=== PATIENT | female | born 1935 | race Caucasian/White ===

== ENCOUNTER 2016-02-29 22:02 | Inpatient (IN) ==
[2016-03-01 01:52] LABS: Hematocrit 37.4 % (35.3-44.9); Lymphocytes # 0.2 K/mcL (0.6-4.6); Mean Corpuscular HGB Conc 32.1 g/dL (31.6-35.5); Mean Corpuscular Hemoglobin 29.8 pg (28.0-33.3); Mean Corpuscular Volume 92.8 fL (83.0-100.0); Mean Platelet Volume 10.9 fL (9.4-12.4); Platelet Count 331 K/mcL (140-400); Red Blood Count 4.03 M/mcL (3.82-4.97); Red Cell Distribution Width 14.1 % (11.5-14.5)
[2016-03-01 01:53] LABS: VBG HCO3 26.5 mEq/L (21-27); VBG PH 7.35 pH Units (7.32-7.42)
[2016-03-01 02:04] LABS: Calcium 10.2 mg/dL (8.6-10.8); Potassium 3.4 mEq/L (3.5-4.5)
[2016-03-01 02:17] LABS: Monocytes # 0.4 K/mcL (0.0-1.3); Neutrophils # 9.6 K/mcL (1.6-8.9); Platelet Clumps Few (Not Present); Platelet Estimate Normal (Normal); Toxic Granulation Present (Not Present)
[2016-03-01] MEDS ORDERED: 0.9 % Sodium Chloride 500 ML IVC ONE (04:21)
[2016-03-01] MEDS ORDERED: *HR* LORazepam 2 MG/ML VIAL IVP ONE ×2 (04:23→09:29)
[2016-03-01] MEDS ORDERED: *HR* Morphine 2 MG/ML SYRINGE IVP PRN (06:24)
[2016-03-01] MEDS ORDERED: *HR* OxyCODONE Immed Rel 5 MG TABLET PO PRN (06:24)
[2016-03-01] MEDS ORDERED: Naloxone 0.4 MG/ML INJ IVP PRN (06:24)
[2016-03-01] MEDS ORDERED: 0.9 % Sodium Chloride 1,000 ML IVC SCH (06:30)
--- NOTE | 2016-03-01 06:34 | Internal Med History&Physical ---
Date of Encounter: 03/01/16 Time of Encounter: 04:00 Assessment and Plan (1) Acute kidney injury Current visit: Yes Status: Acute Patient received Lasix at [place] due to on chest x-ray findings and concern for CHF, she had a Brooks catheter placed and she put out about 50 mL. Her creatinine worsened after the Lasix, her clinical picture is most likely AKA secondary to dehydration and not fluid overloaded and therefore I will not continue the Lasix I will give her 500 mL normal saline bolus and follow kidney function, monitor her response by urine output and repeat creatinine. Avoid all nephrotoxins including IV contrast and NSAIDs. (2) Acute and chronic respiratory failure with hypoxia Current visit: Yes Status: Acute The patient is respiratory failure requires BiPAP, will continue this. Check CT of the chest and distinguish between infectious process and cardiogenic pulmonary edema. Check echocardiogram. Start IV antibiotics empirically for pneumonia. Check influenza swab. Start IV steroids for COPD. Possible pulmonary The patient is currently highly unstable condition and there is high probability of emergent and significant clinical decompensation with potential impairment of organ dysfunction including cardiovascular system and respiratory system. I have performed a 60 minutes of critical care time which involved decision making of high complexity to assess, manipulate, and support vital organ system, in order to prevent further life threatening deterioration of the patient's condition. The time involved in the performance of any procedures was not counted toward critical care time. Critical care time was spent evaluating the patient, reviewing EKG, imaging studies and laboratory data, ordering medications and further imaging studies and reevaluating clinically for response including urine output and making adjustments to ordered medications. (3) Respiratory distress Current visit: Yes Status: Acute Continue with BiPAP. Low-dose Ativan tool decreased work of breathing. (4) Tobacco abuse Current visit: Yes Status: Acute We will provide smoking cessation counseling. (5) Type 2 diabetes mellitus treated with insulin Current visit: Yes Status: Acute Insulin sliding scale. (6) Acute exacerbation of chronic obstructive airways disease Current visit: No Status: Acute Inhaled bronchodilators and IV steroids. (7) Community acquired pneumonia Current visit: No Status: Acute IV antibiotic broad-spectrum. Follow-up blood cultures sputum culture. Check Legionella and pneumococcal antigen. Internal Medicine - H&P: HPI Chief complaint: Shortness of breath Admitted From: Intrahospital Transfer Plans for Post Hospital Care: Home History of present illness: Ms. Ludwig is a 80 year old female with past medical history significant for COPD who wall was transferred from an outside hospital where she presented with severe shortness of breath. History is limited by respiratory distress, patient is currently on BiPAP and able to speak in short sentences saying yes and no answers. She has been having severe shortness of breath for the last 3 days has been progressive and associated with chest discomfort and cough. She presented to [place] where she was hypoxic and tachypneic with respiratory rate of 42. She was placed on BiPAP, treated with steroids and antibiotics and transferred to our hospital for further care. A 10 point review of systems was obtained, limited by respiratory distress, negative except as above. Family history was reviewed and found to be noncontributory to current presentation. Past Med Surg Social Fam HX - Past Medical History Medical history: COPD, hypertension Psychiatric history: no psych history - Past Surgical History Surgical History: hysterectomy, knee replacement - Social History Smoking Status: Current every day smoker Packs per day: 0.5 Smokeless Tobacco Status: No Alcohol use: none Drug use: none - Family History Mother Adopted: No Family Member Ethnicity: Non- Living Status: Age at : 50 Cause of : Cancer Stomach Hx Family Cancer: Yes (Stomach) Father Adopted: No Family Member Ethnicity: Non- Hx Family Cardiac Disorders: Yes Internal Medicine - H&P: Meds Albuterol Sulfate [Proair Hfa] 1 puff IH QID PRN 09/03/15 [History] Alendronate Sodium [Fosamax] 70 mg PO QWEEK 09/03/15 [History] Amlodipine [Norvasc] 5 mg PO DAILY 09/03/15 [History] Amoxicillin/Clavulanate [Augmentin] 500 mg PO BIDWM 09/03/15 [History] Atorvastatin Calcium [Lipitor] 20 mg PO DAILY 09/03/15 [History] Azithromycin [Zithromax] 500 mg PO Q24H 09/03/15 [History] Clopidogrel Bisulfate [Plavix] 75 mg PO DAILY 09/03/15 [History] Furosemide [Lasix] 20 mg PO DAILY 09/03/15 [History] Insulin Glargine,Hum.rec.anlog [Lantus Solostar] 20 unit SQ HS 09/03/15 [History ] Levalbuterol HCl [Xopenex Neb] 1.25 mg IH Q2H PRN 09/03/15 [History] Levothyroxine [Synthroid] 25 mcg PO 0630 09/03/15 [History] Losartan Potassium [Cozaar] 100 mg PO DAILY 09/03/15 [History] Metoprolol Succinate 100 mg PO BID 09/03/15 [History] Metoprolol [Lopressor] 25 mg PO BID 09/03/15 [History] Potassium Chloride [Klor-Con] 20 meq PO DAILY 09/03/15 [History] PredniSONE [Deltasone] 20 mg PO BID 09/03/15 [History] Allergies iodine Allergy (Verified 02/29/16 19:53) See Comments Pt unable to state effects All Systems PM: A 10-system review of systems was performed and is negative for pertinent findings except as documented above in the HPI. - Constitutional Vitals: Temp Pulse Resp BP Pulse Ox 98.6 F 125 31 118/74 96 03/01/16 04:12 03/01/16 04:12 03/01/16 05:32 03/01/16 04:12 03/01/16 05:32 General appearance: Present: A&O X 3, severe distress - Eye Eye exam: Present: PERRL, conjuntiva pink, sclera anicteric Pupils: Present: PERRL - Neck Neck exam general surgery: Present: supple, trachea midline. Absent: lymphadenopathy - Respiratory Respiratory exam: Present: accessory muscle use, CTAB, rales, respiratory distress, wheezes, tachypnea. Absent: rhonchi - Cardiovascular Cardiovascular exam: Present: +S1, +S2, tachycardia. Absent: diastolic murmur, gallop, rubs - GI/Abdominal GI/Abdominal exam: Present: normal bowel sounds, soft, no peritoneal signs. Absent: distended, tenderness - Extremities Exam Extremities exam: Present: warm, radial pulses palpable and symetrical. Absent : calf tenderness, cyanotic, pedal edema - Neurological Exam Neurological exam: Present: CN II-XII intact, oriented X3, no focal deficits. Absent: pronater drift, facial droop, speech deficit - Skin Skin exam: Present: dry, intact Internal Med - H&P Results - Labs CBC & Chem 7: 03/01/16 01:42 03/01/16 01:42 Labs: Short CBC 03/01/16 Range/Units 01:42 WBC 10.2 (4.3-11.1) K/mcL Hgb 12.0 (11.5-15.4) g/dL Hct 37.4 (35.3-44.9) % Plt Count 331 (140-400) K/mcL Neutrophils # 9.6 H (1.6-8.9) K/mcL BMP 03/01/16 01:42 Sodium 142 Potassium 3.4 L Chloride 103 Carbon Dioxide 24 BUN 59 H Creatinine 2.35 H Glucose 217 H Calcium 10.2 Cardiac Enzymes 03/01/16 Range/Units 01:42 Troponin I 0.08 H* (0-0.03) ng/mL - ABG Interpretation ABG results: 03/01/16 01:42 VBG pH 7.35 VBG pCO2 48 VBG pO2 97 H VBG HCO3 26.5 - EKG Data -: EKG Interpreted by Myself Rate: tachycardia - EKG Data EKG comments: 03/01/16 06:35 Sinus tachycardia 1 28 bpm, atrial premature contractions and nonspecific ST and T wave changes. - Impressions ITS Impressions Chest CT 03/01/16 04:20 IMPRESSION: 1. Diffuse nodularity is most likely infectious or inflammatory. 2. Emphysema. 3. Pulmonary hypertension. D/ / Ezio Sanabria MD / Ezio Sanabria MD Interpreting Provider: Ezio Sanabria MD Chest x-ray from [place] revealed by myself shows bilateral infiltrates could be pulmonary edema or bilateral pneumonia.
[2016-03-01] MEDS ORDERED: *HR* Dextrose 50 % in Water (Syg) 50 ML SYRINGE IVP PRN (06:45)
[2016-03-01] MEDS ORDERED: Dextrose Gel 15 GM PO PRN ×2 (06:45)
[2016-03-01] MEDS ORDERED: D5% in Water 1,000 ML IV PRN (06:45)
[2016-03-01] MEDS ORDERED: Vancomycin 1,250 MG in D5% in Water 250 ML IVPB ONE (07:00)
[2016-03-01] MEDS: Ipratropium/Albuterol Neb 3 ML IH SCH ×5 (07:35→23:40)
[2016-03-01] MEDS ORDERED: methylPREDNISolone 125 MG/2 ML VIAL IVP ONE (07:46)
[2016-03-01] MEDS: Pantoprazole 40 MG VIAL IVP SCH (07:50)
--- NOTE | 2016-03-01 09:21 | Pulmonology Consult Note ---
Date of Encounter: 03/01/16 Time of Encounter: 09:18 Assessment and Plan (1) Acute and chronic respiratory failure with hypoxia Current Visit: Yes Status: Acute secondary to infectious pneumonia coupled with COPD exacerbation. Low positive pressure airway support for decreased work of breathing Wean oxygen to keep saturations greater than 88% to approximately 92% (2) Severe sepsis Current Visit: Yes Status: Acute Elevated lactate and evidence of infection likely secondary to pneumonia blood pressure currently stable she remains tachycardic overall would would recommend positive fluid balance this can be done with gentle boluses of 500 mL each with monitoring of response Agree with broad cultures including flu swab respiratory infectious panel sputum culture and blood cultures along with urine culture Agree with broad-spectrum antibiotics for now de-escalate upon sensitivities Trend lactate to normalization (3) Acute exacerbation of chronic obstructive airways disease Current Visit: No Status: Acute Cont IV methylprednisolone Continue bronchodilators every 2-4 hours today DuoNeb's are appropriate Smoking cessation (4) Community acquired pneumonia Current Visit: No Status: Acute Review of her CT scan shows very severe emphysematous changes and acutely she has bronchiolitis which is most likely infectious it is hard for me to place it this is all acute or this could have a component of chronic bronchiolitis which in somebody with emphysema nontuberculous Mycobacterium could be in the differential would treat upfront for common infectious causes waiting on cultures it is worthwhile to send off two sputum cultures for AFB. There is no urgency to this can be done when she is off bilevel support and could be done with an induced sputum with respiratory therapy. No improvement then would likely need bronchoscopy. Per our records she has only been in the hospital last in August which puts her in the community-acquired infection risk Has been started on cefepime and vancomycin I would add atypical coverage ( levaquin) to this and likely de-escalate over the next 48 hours based upon sensitivities (5) Tobacco abuse Current Visit: Yes Status: Acute Encourage patient to stop smoking to help prevent recurrent exacerbations History of Present Illness Consult date: 03/01/16 Requesting physician: Lit Montoya Reason for consult: COPD Chief complaint: SOB History of present illness: This is a 80-year-old woman with a past medical history of COPD with active tobacco abuse. She has chronic nocturnal hypoxemia for which she wears oxygen. She uses metered-dose inhalers daily. Overall history taking was impaired slightly by agent currently being on BiPAP and not being able to have in-depth conversations. She presented with a three-day history of cough and worsening shortness of breath presented originally to [place] where they thought she had possible heart failure given her diuresis but she had worsening kidney function with minimal urine output. She has been placed on noninvasive positive pressure ventilation to ease work of breathing started on antibiotics and has been given bronchodilators.. Since his interventions patient says that her breathing has improved to some degree she remains on bilevel positive pressure ventilation and approximately 50% FiO2. Past Med Surg Social Fam HX - Past Medical History Medical history: COPD, hypertension Psychiatric history: no psych history - Past Surgical History Surgical History: hysterectomy, knee replacement - Social History Smoking Status: Current every day smoker Packs per day: 0.5 Smokeless Tobacco Status: No Alcohol use: none Drug use: none - Family History Mother Adopted: No Family Member Ethnicity: Non- Living Status: Age at : 50 Cause of : Cancer Stomach Hx Family Cancer: Yes (Stomach) Father Adopted: No Family Member Ethnicity: Non- Hx Family Cardiac Disorders: Yes Medications and Allergies Albuterol Sulfate [Proair Hfa] 1 puff IH QID PRN 09/03/15 [History] Alendronate Sodium [Fosamax] 70 mg PO QWEEK 09/03/15 [History] Amlodipine [Norvasc] 5 mg PO DAILY 09/03/15 [History] Amoxicillin/Clavulanate [Augmentin] 500 mg PO BIDWM 09/03/15 [History] Atorvastatin Calcium [Lipitor] 20 mg PO DAILY 09/03/15 [History] Azithromycin [Zithromax] 500 mg PO Q24H 09/03/15 [History] Clopidogrel Bisulfate [Plavix] 75 mg PO DAILY 09/03/15 [History] Furosemide [Lasix] 20 mg PO DAILY 09/03/15 [History] Insulin Glargine,Hum.rec.anlog [Lantus Solostar] 20 unit SQ HS 09/03/15 [History ] Levalbuterol HCl [Xopenex Neb] 1.25 mg IH Q2H PRN 09/03/15 [History] Levothyroxine [Synthroid] 25 mcg PO 0630 09/03/15 [History] Losartan Potassium [Cozaar] 100 mg PO DAILY 09/03/15 [History] Metoprolol Succinate 100 mg PO BID 09/03/15 [History] Metoprolol [Lopressor] 25 mg PO BID 09/03/15 [History] Potassium Chloride [Klor-Con] 20 meq PO DAILY 09/03/15 [History] PredniSONE [Deltasone] 20 mg PO BID 09/03/15 [History] Allergies iodine Allergy (Verified 02/29/16 19:53) See Comments Pt unable to state effects All Systems: A 10-system review of systems was performed and is negative for pertinent findings except as documented above in the HPI. Physical Examination Vital Signs: Vital Signs, Last 4 Hours Temp Pulse Resp BP Pulse Ox 03/01/16 08:16 98 F 110 34 133/74 100 03/01/16 08:03 100 03/01/16 07:38 32 96 03/01/16 05:32 31 96 General appearance: alert, appears uncomfortable Eyes: nonicteric ENT: oropharynx dry Neck: supple, no lymphadenopathy Effort: mildly labored Auscultation: bilateral: diminished breath sounds, wheezes, rhonchi Cardiovascular: regular rate and rhythm Gastrointestinal: normoactive bowel sounds Extremities: no edema Musculoskeletal: no deformities normal mental status, non-focal exam affect normal Results - Laboratory Findings CBC and BMP: 03/01/16 01:42 03/01/16 01:42 Abnormal lab findings: Abnormal lab results Band Neutrophils % 12.0 % (0-4) H 03/01/16 01:42 Neutrophils # 9.6 K/mcL (1.6-8.9) H 03/01/16 01:42 Lymphocytes # 0.2 K/mcL (0.6-4.6) L 03/01/16 01:42 Toxic Granulation Present (Not Present) A 03/01/16 01:42 Clumped Platelets Few (Not Present) A 03/01/16 01:42 VBG pO2 97 mmHg (25-40) H 03/01/16 01:42 Potassium 3.4 mEq/L (3.5-4.5) L 03/01/16 01:42 BUN 59 mg/dL (7-20) H 03/01/16 01:42 Creatinine 2.35 mg/dL (0.57-1.11) H 03/01/16 01:42 Est GFR ( Amer) 24 (> 60) L 03/01/16 01:42 Est GFR (Non-Af Amer) 20 (> 60) L 03/01/16 01:42 Glucose 217 mg/dL (70-99) H 03/01/16 01:42 Calculated Osmolality 317 (280-300) H 03/01/16 01:42 Lactic Acid 3.0 mmol/L (0.5-2.2) H 03/01/16 01:42 Troponin I 0.07 ng/mL (0-0.03) H* 03/01/16 07:58 B-Natriuretic Peptide 543 pg/mL (0-100) H 03/01/16 01:42 - Diagnostic Findings Chest x-ray: report reviewed, image reviewed CT scan - chest: report reviewed, image reviewed - Clinical Findings Intake & Output: Intake & Output 02/29/16 03/01/16 03/01/16 23:59 07:59 15:59 Intake Total 500 / 500 Balance 500 / 500 Weight 83.1 kg Consult Discharge Plan - Plan Referrals: NO,PCP [Primary Care Provider] -
[2016-03-01] MEDS: Cefepime HCl 2,000 MG in D5% in Water (Mini-Bag+) 100 ML IVPB SCH (10:19)
[2016-03-01] MEDS ORDERED: Levofloxacin 500 MG/100 ML 500 MG/100 ML BAG IVPB SCH (12:00)
[2016-03-01] MEDS: methylPREDNISolone 125 MG/2 ML VIAL IVP SCH ×2 (12:15→17:55)
[2016-03-01] MEDS: *HR* LORazepam 2 MG/ML VIAL IVP PRN (12:16)
[2016-03-01 14:00] LABS: Adenovirus Not Detected (Not Detect); Bordetella Pertussis Not Detected (Not Detect); Chlamydophila pneumoniae Not Detected (Not Detect); Coronavirus 229E Not Detected (Not Detect); Coronavirus HKU1 Not Detected (Not Detect); Coronavirus NL63 Not Detected (Not Detect); Coronavirus OC43 ***DETECTED*** (Not Detect); Human Metapneumovirus Not Detected (Not Detect); Human Rhinovirus/Enterovirus Not Detected (Not Detect); Influenza A Subtype 2009 H1 Not Detected (Not Detect); Influenza A Untypeable Not Detected (Not Detect); Influenza B Not Detected (Not Detect); Mycoplasma pneumoniae Not Detected (Not Detect); Parainfluenza Virus 1 Not Detected (Not Detect); Parainfluenza Virus 2 Not Detected (Not Detect); Parainfluenza Virus 3 Not Detected (Not Detect); Parainfluenza Virus 4 Not Detected (Not Detect); Respiratory Syncytial Virus Not Detected (Not Detect)
[2016-03-01] MEDS: 0.9 % Sodium Chloride 1,000 ML IVC SCH ×2 (14:39→22:31)
--- NOTE | 2016-03-01 15:31 | Event Note ---
Date of Encounter: 03/01/16 Time of Encounter: 14:58 This is a 80-year-old woman with PMH of COPD with active tobacco abuse with chronic nocturnal hypoxemia for which she wears oxygen. she is admitted for acute exacerbation of COPD and possible infection likely pneumonia given CT findings. there is no evidence of CHF or pulmonary edema on the CT chest, will continue IVF at 125 for now and continue the BIPAP given her increased work of breathing , will try weaning off as tolerated, appreciate pulmonary recommendations and will continue steroids, IV antibiotics and breathing treatments. VBG done this morning does not show CO2 retention. will restart her home meds. she has INA possible 2/2 dehydration and concurrent use of IV lasix. will monitor chem daily. mild trop elevation, adynamic, most likely 2/2 demand ischemia from hypoxia and acute respiratory failure.
--- NOTE | 2016-03-01 15:56 | Electrocardiograph Report ---
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
[2016-03-01] MEDS: Insulin LISPRO 300 UNITS/3 ML VIAL SQ SCH ×2 (17:51→18:02)
[2016-03-01] MEDS: Nicotine 14 MG PATCH.TD24 TD SCH (17:54)
[2016-03-01] MEDS: *HR* Heparin 5,000 UNIT/ML VIAL SQ SCH (17:55)
[2016-03-02] MEDS: Insulin LISPRO 300 UNITS/3 ML VIAL SQ SCH ×4 (01:10→22:32)
[2016-03-02] MEDS: methylPREDNISolone 125 MG/2 ML VIAL IVP SCH ×2 (01:12→06:45)
[2016-03-02] MEDS: *HR* LORazepam 2 MG/ML VIAL IVP PRN ×2 (02:20→07:42)
[2016-03-02] MEDS: Ipratropium/Albuterol Neb 3 ML IH SCH ×10 (03:43→23:06)
[2016-03-02 06:08] LABS: Hematocrit 33.9 % (35.3-44.9); Lymphocytes # 0.5 K/mcL (0.6-4.6); Mean Corpuscular HGB Conc 30.7 g/dL (31.6-35.5); Mean Corpuscular Hemoglobin 29.1 pg (28.0-33.3); Mean Platelet Volume 10.8 fL (9.4-12.4); Platelet Count 318 K/mcL (140-400); Red Blood Count 3.57 M/mcL (3.82-4.97); Red Cell Distribution Width 14.4 % (11.5-14.5)
[2016-03-02 06:19] LABS: Hemoglobin 10.4 g/dL (11.5-15.4)
[2016-03-02 06:22] LABS: Magnesium 1.9 mg/dL (1.6-2.6)
[2016-03-02 06:33] LABS: Vancomycin,Random 13.3 mcg/mL
[2016-03-02] MEDS: *HR* Heparin 5,000 UNIT/ML VIAL SQ SCH ×2 (06:44→22:30)
[2016-03-02 06:59] LABS: Monocytes # 0.3 K/mcL (0.0-1.3); Neutrophils # 12.2 K/mcL (1.6-8.9); Platelet Estimate Normal (Normal); Toxic Granulation Present (Not Present)
[2016-03-02 07:01] LABS: Hypochromasia Present (Not Present)
[2016-03-02] MEDS: Nicotine 14 MG PATCH.TD24 TD SCH (07:56)
[2016-03-02] MEDS: Pantoprazole 40 MG VIAL IVP SCH (07:56)
[2016-03-02] MEDS: Cefepime HCl 2,000 MG in D5% in Water (Mini-Bag+) 100 ML IVPB SCH (07:56)
[2016-03-02] MEDS ORDERED: Aminoglycoside Consult 1 EACH MC ONE (08:54)
[2016-03-02] MEDS: Budesonide/Formoterol 160/4.5 MDI IH SCH ×2 (11:25→23:06)
[2016-03-02] MEDS: Levofloxacin 250 MG/50 ML 250 MG/50 ML BAG IVPB SCH (12:01)
[2016-03-02] MEDS: 0.9 % Sodium Chloride 1,000 ML IVC SCH (12:02)
[2016-03-02 12:07] LABS: ABG Base Excess -2.5 mEq/L (-2.0 to 3.0); ABG HCO3 24.2 mEQ/L (21-27); ABG Oxygen Saturation 99 % (95-98); ABG PCO2 48 mmHg (35-45); ABG PH 7.31 pH Units (7.32-7.45); ABG PO2 136 mmHg (85-104); ABG TCO2 25.7 mEq/L (20-26); Blood Gas FiO2 40 %
--- NOTE | 2016-03-02 13:23 | Pulmonology Progress Note ---
Date of Encounter: 03/02/16 Time of Encounter: 13:21 Assessment and Plan (1) Acute and chronic respiratory failure with hypoxia Current Visit: Yes Status: Acute Mild respiratory acidosis (COPD, acute PNA, body habitus, poor mechanics s/t to laying on side in bed) Cont NIPPV Encourage upright posture and OOBTC if tolerated Wean Fio2 to keep sats >88 to 92% Increase IPAP to 16 and decrease EPAP to 4 Ok to give trial off BPAP today as tolerated (2) Severe sepsis Current Visit: Yes Status: Acute s/t to PNA Improving (3) Acute exacerbation of chronic obstructive airways disease Current Visit: No Status: Acute on relatively high dose steroids and with AMS and improving lung function would taper to 40mg IV methylpred BID Can likely transition to PO in upcoming day(s) Cont Bronchodilators Q4 is plenty cont abx (4) Community acquired pneumonia Current Visit: No Status: Acute Appears s/t to Coronavirus Would cont levaquin x 5 days pending cultures then D/C (5) Tobacco abuse Current Visit: Yes Status: Acute counselled on smoking cessation Subjective Principal diagnosis: Pneumonia Interval history: Today the patient is more confused continues to use BiPAP Objective PUL Vital signs: Last Vital Signs Temp 98.1 F 03/02/16 12:24 Pulse 96 03/02/16 12:24 Resp 30 03/02/16 12:24 BP 140/78 03/02/16 12:24 Pulse Ox 98 03/02/16 12:24 General appearance: lethargic Effort: mildly labored Auscultation: bilateral: diminished breath sounds, wheezes (faint exp wheeze b/ l (improved from previous exam)) Cardiovascular: regular rate and rhythm Gastrointestinal: non-tender Extremities: no edema non-focal exam, other (disoriented (thinks it februrary) she is able to answer simple questions and follow simple commands ) Results - Laboratory Findings CBC and BMP: 03/02/16 05:42 03/02/16 05:42 ABG ABG pH 7.31 pH Units (7.32-7.45) L 03/02/16 11:57 ABG pCO2 48 mmHg (35-45) H 03/02/16 11:57 ABG pO2 136 mmHg (85-104) H 03/02/16 11:57 ABG O2 Saturation 99 % (95-98) H 03/02/16 11:57 Abnormal lab findings: Abnormal lab results WBC 13.3 K/mcL (4.3-11.1) H 03/02/16 05:42 RBC 3.57 M/mcL (3.82-4.97) L 03/02/16 05:42 Hgb 10.4 g/dL (11.5-15.4) L D 03/02/16 05:42 Hct 33.9 % (35.3-44.9) L 03/02/16 05:42 MCHC 30.7 g/dL (31.6-35.5) L 03/02/16 05:42 Myelocytes % 2.0 % (0) H 03/02/16 05:42 Neutrophils # 12.2 K/mcL (1.6-8.9) H 03/02/16 05:42 Lymphocytes # 0.5 K/mcL (0.6-4.6) L 03/02/16 05:42 Toxic Granulation Present (Not Present) A 03/02/16 05:42 Clumped Platelets Few (Not Present) A 03/01/16 01:42 Hypochromasia Present (Not Present) A 03/02/16 05:42 ABG pH 7.31 pH Units (7.32-7.45) L 03/02/16 11:57 ABG pCO2 48 mmHg (35-45) H 03/02/16 11:57 ABG pO2 136 mmHg (85-104) H 03/02/16 11:57 ABG O2 Saturation 99 % (95-98) H 03/02/16 11:57 ABG Base Excess -2.5 mEq/L (-2.0 to 3.0) L 03/02/16 11:57 VBG pO2 97 mmHg (25-40) H 03/01/16 01:42 Sodium 146 mEq/L (136-145) H 03/02/16 05:42 Chloride 111 mEq/L (98-109) H 03/02/16 05:42 BUN 61 mg/dL (7-20) H 03/02/16 05:42 Creatinine 1.71 mg/dL (0.57-1.11) H 03/02/16 05:42 Est GFR ( Amer) 35 (> 60) L 03/02/16 05:42 Est GFR (Non-Af Amer) 29 (> 60) L 03/02/16 05:42 BUN/Creatinine Ratio 36 (6-26) H 03/02/16 05:42 Glucose 126 mg/dL (70-99) H 03/02/16 05:42 POC Glucose 113 (58-89) H 03/02/16 05:26 Calculated Osmolality 321 (280-300) H 03/02/16 05:42 Lactic Acid 3.0 mmol/L (0.5-2.2) H 03/01/16 01:42 Troponin I 0.08 ng/mL (0-0.03) H* 03/01/16 12:19 B-Natriuretic Peptide 543 pg/mL (0-100) H 03/01/16 01:42 Coronavirus OC43 (PCR) DETECTED (Not Detect) A 03/01/16 12:15 - Microbiology Findings Microbiology Findings: Microbiology, Last 48 Hours 03/01/16 12:15 Legionella Antigen - Final Urine,Catheterized Streptococcus pneumoniae Antigen (M - Final - Clinical Findings Intake & Output: Intake & Output 03/01/16 03/02/16 03/02/16 23:59 07:59 15:59 Intake Total 1000 / 1000 0 / 0 Output Total 350 / 350 150 / 150 0 / 0 Balance 650 / 650 -150 / -150 0 / 0 Weight 89.6 kg Consult Discharge Plan - Plan Referrals: NO,PCP [Primary Care Provider] -
[2016-03-02] MEDS: Acetaminophen 325 MG TABLET PO PRN (14:11)
[2016-03-02] MEDS ORDERED: Vancomycin 1,250 MG in D5% in Water 250 ML IVPB ONE (14:30)
--- NOTE | 2016-03-02 16:20 | Internal Med Progress Note ---
Date of Encounter: 03/02/16 Time of Encounter: 16:18 - Assessment and plan (1) Acute and chronic respiratory failure with hypoxia Current Visit: Yes Status: Acute Assessment and plan: 2/2 COPD, acute PNA, ABG showed mild acidosis. Cont NIPPV and try to wean off as tolerated. titrtae Fio2 to keep sats >88 BIPAP settings adjusted by pulmonary. (2) Severe sepsis Current Visit: Yes Status: Acute Assessment and plan: resolved. 2/2 viral pneumonia (3) Acute exacerbation of chronic obstructive airways disease Current Visit: No Status: Acute Assessment and plan: steroids tapered to 40mg IV methylpred BID as per pulmonary Cont Bronchodilators Q4 cont levoflox. (4) Community acquired pneumonia Current Visit: No Status: Acute Assessment and plan: 2/2 mckeon virus. will stop vanco and zosyn and continue levoflox for 5 days. mild increase in leucocytosis, maru continue to monitor.. no fever. - Time Spent With Patient 25 - 35 minutes - Subjective Interval history: appears still tachypneic ,has been on BIPAP for the whole night. denies any chest pain, speaking in short sentences. denies n/v, alert and awake. - Constitutional Vitals: Temp Pulse Resp BP Pulse Ox 98.1 F 96 26 140/78 94 L 03/02/16 12:24 03/02/16 12:24 03/02/16 15:58 03/02/16 12:24 03/02/16 15:58 General appearance: Present: A&O X 3, severe distress Exam: General appearance: lethargic Auscultation: bilateral: diminished breath sounds, wheezing b/l occasional Cardiovascular: s1 and s2,regular rate and rhythm Gastrointestinal: non-tender, soft, bs are present Extremities: no edema Internal Medicine: Result - Labs CBC & Chem 7: 03/02/16 05:42 03/02/16 05:42 Labs: Short CBC 03/02/16 Range/Units 05:42 WBC 13.3 H (4.3-11.1) K/mcL Hgb 10.4 L D (11.5-15.4) g/dL Hct 33.9 L (35.3-44.9) % Plt Count 318 (140-400) K/mcL Neutrophils # 12.2 H (1.6-8.9) K/mcL BMP 03/02/16 05:42 Sodium 146 H Potassium 4.0 Chloride 111 H Carbon Dioxide 25 BUN 61 H Creatinine 1.71 H Glucose 126 H Calcium 10.0 - ABG Interpretation ABG results: ABG ABG pH 7.31 pH Units (7.32-7.45) L 03/02/16 11:57 ABG pCO2 48 mmHg (35-45) H 03/02/16 11:57 ABG pO2 136 mmHg (85-104) H 03/02/16 11:57 ABG O2 Saturation 99 % (95-98) H 03/02/16 11:57 Consult Discharge Plan - Plan Referrals: NO,PCP [Primary Care Provider] -
[2016-03-02] MEDS: MethylPREDNISolone 40 MG/ML VIAL IVP SCH (18:36)
[2016-03-02] MEDS: Metoprolol 100 MG TABLET PO SCH (22:30)
[2016-03-03] MEDS: MethylPREDNISolone 40 MG/ML VIAL IVP SCH ×3 (00:18→16:59)
[2016-03-03] MEDS: 0.9 % Sodium Chloride 1,000 ML IVC SCH ×2 (04:37→16:59)
[2016-03-03] MEDS: Ipratropium/Albuterol Neb 3 ML IH SCH ×10 (04:41→20:55)
[2016-03-03] MEDS: Levothyroxine 25 MCG TABLET PO SCH ×2 (05:37→06:59)
[2016-03-03] MEDS: *HR* Heparin 5,000 UNIT/ML VIAL SQ SCH ×2 (06:11→16:59)
[2016-03-03] MEDS: Insulin LISPRO 300 UNITS/3 ML VIAL SQ SCH ×5 (07:13→20:59)
[2016-03-03] MEDS: Budesonide/Formoterol 160/4.5 MDI IH SCH ×2 (08:07→21:15)
--- NOTE | 2016-03-03 09:03 | Pulmonology Progress Note ---
Date of Encounter: 03/03/16 Time of Encounter: 09:02 Assessment and Plan (1) Acute and chronic respiratory failure with hypoxia Current Visit: Yes Status: Acute Mild respiratory acidosis (COPD, acute PNA, body habitus, poor mechanics s/t to laying on side in bed) Encourage upright posture and OOBTC if tolerated Wean Fio2 to keep sats >88 to 92% Increase IPAP to 16 and decrease EPAP to 4 Ok to give trial off BPAP today as tolerated Would hold IV fluids as now taking by mouth (2) Severe sepsis Current Visit: Yes Status: Acute s/t to PNA Improving (3) Acute exacerbation of chronic obstructive airways disease Current Visit: No Status: Acute Continue IV steroids Incision to by mouth prednisone 40 mg tomorrow with 2 week taper Cont Bronchodilators Q4 Start Symbicort 160/4.5 2 puffs twice daily Start tiotropium 18 mcg daily cont abx (4) Community acquired pneumonia Current Visit: No Status: Acute Appears s/t to Coronavirus Would cont levaquin x 5 days pending cultures then D/C (5) Tobacco abuse Current Visit: Yes Status: Acute counselled on smoking cessation Subjective Principal diagnosis: Pneumonia Interval history: Today fully alert awake sitting up in bed eating breakfast off BiPAP to his breathing still little bit labored but feels much better Objective PUL Vital signs: Last Vital Signs Temp 98.0 F 03/03/16 06:52 Pulse 86 03/03/16 06:52 Resp 28 03/03/16 06:52 BP 152/91 03/03/16 06:52 Pulse Ox 100 03/03/16 06:52 General appearance: no acute distress Eyes: nonicteric ENT: oropharynx moist Effort: mildly labored Auscultation: bilateral: diminished breath sounds, wheezes, rhonchi Cardiovascular: regular rate and rhythm Extremities: edema normal mental status, non-focal exam Results - Laboratory Findings CBC and BMP: 03/02/16 05:42 03/02/16 05:42 ABG ABG pH 7.31 pH Units (7.32-7.45) L 03/02/16 11:57 ABG pCO2 48 mmHg (35-45) H 03/02/16 11:57 ABG pO2 136 mmHg (85-104) H 03/02/16 11:57 ABG O2 Saturation 99 % (95-98) H 03/02/16 11:57 Abnormal lab findings: Abnormal lab results WBC 13.3 K/mcL (4.3-11.1) H 03/02/16 05:42 RBC 3.57 M/mcL (3.82-4.97) L 03/02/16 05:42 Hgb 10.4 g/dL (11.5-15.4) L D 03/02/16 05:42 Hct 33.9 % (35.3-44.9) L 03/02/16 05:42 MCHC 30.7 g/dL (31.6-35.5) L 03/02/16 05:42 Myelocytes % 2.0 % (0) H 03/02/16 05:42 Neutrophils # 12.2 K/mcL (1.6-8.9) H 03/02/16 05:42 Lymphocytes # 0.5 K/mcL (0.6-4.6) L 03/02/16 05:42 Toxic Granulation Present (Not Present) A 03/02/16 05:42 Clumped Platelets Few (Not Present) A 03/01/16 01:42 Hypochromasia Present (Not Present) A 03/02/16 05:42 ABG pH 7.31 pH Units (7.32-7.45) L 03/02/16 11:57 ABG pCO2 48 mmHg (35-45) H 03/02/16 11:57 ABG pO2 136 mmHg (85-104) H 03/02/16 11:57 ABG O2 Saturation 99 % (95-98) H 03/02/16 11:57 ABG Base Excess -2.5 mEq/L (-2.0 to 3.0) L 03/02/16 11:57 VBG pO2 97 mmHg (25-40) H 03/01/16 01:42 Sodium 146 mEq/L (136-145) H 03/02/16 05:42 Chloride 111 mEq/L (98-109) H 03/02/16 05:42 BUN 61 mg/dL (7-20) H 03/02/16 05:42 Creatinine 1.71 mg/dL (0.57-1.11) H 03/02/16 05:42 Est GFR ( Amer) 35 (> 60) L 03/02/16 05:42 Est GFR (Non-Af Amer) 29 (> 60) L 03/02/16 05:42 BUN/Creatinine Ratio 36 (6-26) H 03/02/16 05:42 Glucose 126 mg/dL (70-99) H 03/02/16 05:42 POC Glucose 164 (58-89) H 03/03/16 08:11 Calculated Osmolality 321 (280-300) H 03/02/16 05:42 Lactic Acid 3.0 mmol/L (0.5-2.2) H 03/01/16 01:42 Troponin I 0.08 ng/mL (0-0.03) H* 03/01/16 12:19 B-Natriuretic Peptide 543 pg/mL (0-100) H 03/01/16 01:42 Procalcitonin 13.88 ng/mL (<=0.10) H 03/01/16 01:42 Coronavirus OC43 (PCR) DETECTED (Not Detect) A 03/01/16 12:15 - Microbiology Findings Microbiology Findings: Microbiology, Last 48 Hours 03/01/16 12:15 Legionella Antigen - Final Urine,Catheterized Streptococcus pneumoniae Antigen (M - Final - Clinical Findings Intake & Output: Intake & Output 03/02/16 03/03/16 03/03/16 23:59 07:59 15:59 Intake Total 1260 / 1260 Output Total 600 / 600 250 / 250 Balance -600 / -600 1010 / 1010 Weight 86.1 kg Consult Discharge Plan - Plan Referrals: Lex Biswas, PALLIATIVE NURSE [Non-Partnered Physician] -
[2016-03-03] MEDS: Nicotine 14 MG PATCH.TD24 TD SCH (09:28)
[2016-03-03] MEDS: Metoprolol 100 MG TABLET PO SCH ×2 (09:28→19:02)
[2016-03-03] MEDS: Pantoprazole 40 MG VIAL IVP SCH (09:28)
[2016-03-03 12:18] LABS: Hematocrit 33.6 % (35.3-44.9); Hemoglobin 10.4 g/dL (11.5-15.4); Mean Corpuscular Hemoglobin 29.5 pg (28.0-33.3); Mean Corpuscular Volume 95.2 fL (83.0-100.0); Mean Platelet Volume 10.5 fL (9.4-12.4); Nucleated Red Blood Cells 0.1 /100 WBC (0); Platelet Count 317 K/mcL (140-400); Red Blood Count 3.53 M/mcL (3.82-4.97); Red Cell Distribution Width 14.8 % (11.5-14.5)
[2016-03-03 12:32] LABS: Calcium 10.6 mg/dL (8.6-10.8); Potassium 4.7 mEq/L (3.5-4.5)
[2016-03-03 12:45] LABS: Eosinophils # 0.3 K/mcL (0.0-0.6); Large Platelets Present (Not Present); Lymphocytes # 0.9 K/mcL (0.6-4.6); Monocytes # 0.6 K/mcL (0.0-1.3); Neutrophils # 12.7 K/mcL (1.6-8.9); Platelet Estimate Normal (Normal)
--- NOTE | 2016-03-03 16:58 | Internal Med Progress Note ---
Date of Encounter: 03/03/16 Time of Encounter: 16:55 - Assessment and plan (1) Acute and chronic respiratory failure with hypoxia Current Visit: Yes Status: Acute Assessment and plan: 2/2 COPD, acute PNA, ABG showed mild acidosis. on NC cannula today, will keep BIPAP prn for severe respiratory distress. titrtae Fio2 to keep sats >88 BIPAP settings adjusted by pulmonary, appreciate pulmonary recommendtaions (2) Severe sepsis Current Visit: Yes Status: Acute Assessment and plan: resolved. 2/2 viral pneumonia (3) Acute exacerbation of chronic obstructive airways disease Current Visit: No Status: Acute Assessment and plan: steroids tapered to 40mg IV methylpred BID . Cont Bronchodilators Q4 cont levoflox. (4) Community acquired pneumonia Current Visit: No Status: Acute Assessment and plan: 2/2 mckeon virus. will stop vanco and zosyn and continue levoflox for 5 days. mild increase in leucocytosis,possible 2/2 steroids, maru continue to monitor.. no fever. - Time Spent With Patient 25 - 35 minutes - Subjective Interval history: appears better than yesterday, however still has wheezing on exam. ,has been on BIPAP for the whole night. denies any chest pain, speaking in short sentences. denies n/v, alert and awake. - Constitutional Vitals: Temp Pulse Resp BP Pulse Ox 98.4 F 86 18 167/103 94 L 03/03/16 16:02 03/03/16 16:02 03/03/16 16:02 03/03/16 16:02 03/03/16 16:02 General appearance: Present: mild distress, A&O X 3 Exam: neck- supple chest- b/l wheezing , no crepts cvs- s1 and s2, no mr//g abd-soft, non tender, bs are present ext- no edema Internal Medicine: Result - Labs CBC & Chem 7: 03/03/16 11:58 03/03/16 11:58 Labs: Short CBC 03/03/16 Range/Units 11:58 WBC 14.4 H (4.3-11.1) K/mcL Hgb 10.4 L (11.5-15.4) g/dL Hct 33.6 L (35.3-44.9) % Plt Count 317 (140-400) K/mcL Neutrophils # 12.7 H (1.6-8.9) K/mcL BMP 03/03/16 11:58 Sodium 143 Potassium 4.7 H Chloride 114 H Carbon Dioxide 21 BUN 49 H D Creatinine 1.46 H Glucose 161 H Calcium 10.6 - ABG Interpretation ABG results: ABG ABG pH 7.31 pH Units (7.32-7.45) L 03/02/16 11:57 ABG pCO2 48 mmHg (35-45) H 03/02/16 11:57 ABG pO2 136 mmHg (85-104) H 03/02/16 11:57 ABG O2 Saturation 99 % (95-98) H 03/02/16 11:57 Consult Discharge Plan - Plan Referrals: Lex Biswas, ROOM SERVICE SERVER [Non-Partnered Physician] -
[2016-03-03] MEDS: *HR* LORazepam 2 MG/ML VIAL IVP PRN (20:58)
[2016-03-04] MEDS: Ipratropium/Albuterol Neb 3 ML IH SCH ×11 (00:12→19:58)
[2016-03-04] MEDS: MethylPREDNISolone 40 MG/ML VIAL IVP SCH ×3 (00:32→16:18)
[2016-03-04] MEDS: *HR* Heparin 5,000 UNIT/ML VIAL SQ SCH (06:20)
[2016-03-04] MEDS: Levothyroxine 25 MCG TABLET PO SCH (06:21)
[2016-03-04] MEDS: 0.9 % Sodium Chloride 1,000 ML IVC SCH (06:23)
--- NOTE | 2016-03-04 07:34 | Pulmonology Progress Note ---
Date of Encounter: 03/04/16 Time of Encounter: 07:34 Assessment and Plan (1) Acute and chronic respiratory failure with hypoxia Current Visit: Yes Status: Acute Overall i feel that infection and exacerbation of obstructive airways disease has improved. worsening today most likely s/t pulmonary edema s/t to ongoing IV fluid administration Recommend CXR which was done showing increased vascular congestion otherwise stable. ABG on Bi level is reassuring -Recommend IV lasix x 1 (40mg) monitor for response Encourage upright posture and OOBTC if tolerated Wean Fio2 to keep sats >88 to 92% Increase IPAP to 16 and decrease EPAP to 4 Ok to give trial off BPAP later today as tolerated Would hold IV fluids (2) Severe sepsis Current Visit: Yes Status: Acute s/t to PNA Improving persistent WBC elevation likely steroid effect if worsening s/s including fever would reculture treat for PNA x 8 days (3) Acute exacerbation of chronic obstructive airways disease Current Visit: No Status: Acute Continue steroids Cont Bronchodilators Q4 Start Symbicort 160/4.5 2 puffs twice daily Cont tiotropium 18 mcg daily cont abx (4) Community acquired pneumonia Current Visit: No Status: Acute Appears s/t to Coronavirus Would cont levaquin x 8 days pending cultures then D/C (5) Tobacco abuse Current Visit: Yes Status: Acute counselled on smoking cessation Subjective Principal diagnosis: Pneumonia Interval history: 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 O2 sat% stable. BP stable Objective PUL Vital signs: Last Vital Signs Temp 98.5 F 03/04/16 03:27 Pulse 76 03/04/16 03:27 Resp 27 03/04/16 03:38 BP 119/77 03/04/16 03:27 Pulse Ox 99 03/04/16 03:38 General appearance: appears uncomfortable Effort: very labored Auscultation: bilateral: diminished breath sounds, wheezes (faint wheeze ), rales Cardiovascular: regular rate and rhythm Gastrointestinal: non-tender Extremities: other (Trace LE edema ) normal mental status, non-focal exam anxious Results - Laboratory Findings CBC and BMP: 03/03/16 11:58 03/03/16 11:58 ABG ABG pH 7.31 pH Units (7.32-7.45) L 03/02/16 11:57 ABG pCO2 48 mmHg (35-45) H 03/02/16 11:57 ABG pO2 136 mmHg (85-104) H 03/02/16 11:57 ABG O2 Saturation 99 % (95-98) H 03/02/16 11:57 Abnormal lab findings: Abnormal lab results WBC 14.4 K/mcL (4.3-11.1) H 03/03/16 11:58 RBC 3.53 M/mcL (3.82-4.97) L 03/03/16 11:58 Hgb 10.4 g/dL (11.5-15.4) L 03/03/16 11:58 Hct 33.6 % (35.3-44.9) L 03/03/16 11:58 MCHC 31.0 g/dL (31.6-35.5) L 03/03/16 11:58 RDW 14.8 % (11.5-14.5) H 03/03/16 11:58 Band Neutrophils % 6.0 % (0-4) H 03/03/16 11:58 Myelocytes % 2.0 % (0) H 03/02/16 05:42 Neutrophils # 12.7 K/mcL (1.6-8.9) H 03/03/16 11:58 Nucleated RBCs/100 WBC 0.1 /100 WBC (0) H 03/03/16 11:58 Toxic Granulation Present (Not Present) A 03/02/16 05:42 Clumped Platelets Few (Not Present) A 03/01/16 01:42 Large Platelets Present (Not Present) A 03/03/16 11:58 Hypochromasia Present (Not Present) A 03/02/16 05:42 ABG pH 7.31 pH Units (7.32-7.45) L 03/02/16 11:57 ABG pCO2 48 mmHg (35-45) H 03/02/16 11:57 ABG pO2 136 mmHg (85-104) H 03/02/16 11:57 ABG O2 Saturation 99 % (95-98) H 03/02/16 11:57 ABG Base Excess -2.5 mEq/L (-2.0 to 3.0) L 03/02/16 11:57 VBG pO2 97 mmHg (25-40) H 03/01/16 01:42 Potassium 4.7 mEq/L (3.5-4.5) H 03/03/16 11:58 Chloride 114 mEq/L (98-109) H 03/03/16 11:58 BUN 49 mg/dL (7-20) H D 03/03/16 11:58 Creatinine 1.46 mg/dL (0.57-1.11) H 03/03/16 11:58 Est GFR ( Amer) 42 (> 60) L 03/03/16 11:58 Est GFR (Non-Af Amer) 35 (> 60) L 03/03/16 11:58 BUN/Creatinine Ratio 34 (6-26) H 03/03/16 11:58 Glucose 161 mg/dL (70-99) H 03/03/16 11:58 POC Glucose 172 (58-89) H 03/03/16 20:57 Calculated Osmolality 312 (280-300) H 03/03/16 11:58 Lactic Acid 3.0 mmol/L (0.5-2.2) H 03/01/16 01:42 Troponin I 0.08 ng/mL (0-0.03) H* 03/01/16 12:19 B-Natriuretic Peptide 543 pg/mL (0-100) H 03/01/16 01:42 Procalcitonin 13.88 ng/mL (<=0.10) H 03/01/16 01:42 Coronavirus OC43 (PCR) DETECTED (Not Detect) A 03/01/16 12:15 - Diagnostic Findings Chest x-ray: report reviewed, image reviewed (increased vascular congestion ) - Clinical Findings Intake & Output: Intake & Output 03/03/16 03/03/16 03/04/16 15:59 23:59 07:59 Intake Total 240 / 240 1210 / 1210 1120 / 1120 Output Total 0 / 0 400 / 400 Balance 240 / 240 810 / 810 1120 / 1120 Weight 88.7 kg Consult Discharge Plan - Plan Referrals: Lex Biswas, RECEIVING TELLER [Non-Partnered Physician] -
[2016-03-04] MEDS ORDERED: Furosemide 20 MG/2 ML VIAL IVP ONE (08:42)
[2016-03-04] MEDS: Pantoprazole 40 MG VIAL IVP SCH (09:22)
[2016-03-04] MEDS: Insulin LISPRO 300 UNITS/3 ML VIAL SQ SCH ×4 (09:22→20:35)
[2016-03-04] MEDS: Nicotine 14 MG PATCH.TD24 TD SCH (09:23)
[2016-03-04] MEDS: Metoprolol 100 MG TABLET PO SCH ×2 (09:23→20:35)
[2016-03-04 09:30] LABS: ABG Base Excess -1.7 mEq/L (-2.0 to 3.0); ABG HCO3 23.7 mEQ/L (21-27); ABG Oxygen Saturation 99 % (95-98); ABG PCO2 42 mmHg (35-45); ABG PH 7.36 pH Units (7.32-7.45); ABG PO2 148 mmHg (85-104)
[2016-03-04 09:31] LABS: Blood Gas FiO2 40 %
[2016-03-04] MEDS: Budesonide/Formoterol 160/4.5 MDI IH SCH ×2 (11:18→20:09)
[2016-03-04] MEDS: Tiotropium 18 MCG inhalation IH SCH (11:32)
[2016-03-04 11:43] LABS: Basophils # 0.1 K/mcL (0.0-0.2); Basophils % 0.4 %; Hematocrit 35.2 % (35.3-44.9); Immature Granulocytes % 4.4 % (0-4); Lymphocytes # 0.9 K/mcL (0.6-4.6); Lymphocytes % 4.7 %; Mean Corpuscular HGB Conc 31.3 g/dL (31.6-35.5); Mean Corpuscular Hemoglobin 29.6 pg (28.0-33.3); Mean Corpuscular Volume 94.9 fL (83.0-100.0); Mean Platelet Volume 10.8 fL (9.4-12.4); Monocytes # 0.4 K/mcL (0.0-1.3); Monocytes % 2.2 %; Nucleated Red Blood Cells 0.1 /100 WBC (0); Platelet Count 302 K/mcL (140-400); Red Blood Count 3.71 M/mcL (3.82-4.97); Red Cell Distribution Width 14.5 % (11.5-14.5); Segmented Neutrophils % 88.3 %
[2016-03-04 11:45] LABS: Neutrophils # 17.1 K/mcL (1.6-8.9)
[2016-03-04 11:57] LABS: Calcium 10.8 mg/dL (8.6-10.8); Potassium 4.6 mEq/L (3.5-4.5)
[2016-03-04 12:04] LABS: Platelet Estimate Normal (Normal); Reactive Lymphocytes Present (Not Present)
[2016-03-04] MEDS: Levofloxacin 250 MG/50 ML 250 MG/50 ML BAG IVPB SCH (12:41)
[2016-03-04] MEDS ORDERED: Aspirin 325 MG TABLET PO ONE (16:20)
[2016-03-04] MEDS ORDERED: *HR* Heparin 5,000 UNIT/ML VIAL IVP ONE (16:21)
[2016-03-04] MEDS ORDERED: *HR* Heparin 5,000 UNIT/ML VIAL IVP PRN ×2 (16:21)
[2016-03-04 17:07] LABS: Hematocrit 34.6 % (35.3-44.9); Hemoglobin 10.9 g/dL (11.5-15.4); Mean Corpuscular HGB Conc 31.5 g/dL (31.6-35.5); Mean Corpuscular Hemoglobin 29.8 pg (28.0-33.3); Mean Corpuscular Volume 94.5 fL (83.0-100.0); Mean Platelet Volume 10.7 fL (9.4-12.4); Platelet Count 284 K/mcL (140-400); Red Blood Count 3.66 M/mcL (3.82-4.97); Red Cell Distribution Width 14.3 % (11.5-14.5)
[2016-03-04 17:14] LABS: INR 1.4; Prothrombin Time 14.8 Seconds (9.4-12.1)
[2016-03-04 17:17] LABS: Activated Partial Thrombo Time 26.4 Seconds (26.0-36.0)
[2016-03-04] MEDS: Heparin 25,000 UNIT/500 ML D5W 25,000 UNIT/500 ML MLS IVC SCH (17:47)
--- NOTE | 2016-03-04 17:47 | Internal Med Progress Note ---
Date of Encounter: 03/04/16 Time of Encounter: 17:45 - Assessment and plan (1) Acute and chronic respiratory failure with hypoxia Current Visit: Yes Status: Acute Assessment and plan: 2/2 COPD, acute PNA 2/2 mckeon virus, ABG on BIpap looks good. repeat CXR today showed vascular congeteion, stopped IVF and started home dose of IV lasix. titrtae Fio2 to keep sats >88 , intermittent BIPAP and wean as tolerated. BIPAP settings adjusted by pulmonary, appreciate pulmonary recommendtaions (2) Severe sepsis Current Visit: Yes Status: Acute Assessment and plan: resolved. 2/2 viral pneumonia (3) Acute exacerbation of chronic obstructive airways disease Current Visit: No Status: Acute Assessment and plan: steroids tapered to 40mg IV methylpred BID . Cont Bronchodilators Q4 cont levoflox. (4) Community acquired pneumonia Current Visit: No Status: Acute Assessment and plan: 2/2 mckeon virus. will stop vanco and zosyn and continue levoflox for 5 days. mild increase in leucocytosis,possible 2/2 steroids, maru continue to monitor.. no fever. (5) NSTEMI (non-ST elevated myocardial infarction) Current Visit: Yes Status: Acute Assessment and plan: was noted to have st- wave changes in septal and lateral leads. repeat trop shows 0.8 from 0.08. however, rafat denies any chest pain and BP stable. she says she has h/o heart attack few years ago and had a LHC done but not sure if she had any stents placed in. will give asa 325 mg now, start on heparin drip and will order ECHO. will consult cardio and follow recommendtaions - Time Spent With Patient 25 - 35 minutes - Subjective Interval history: still appears sob with accessory muscle use in the morning, denies any chest pain or palpitation ,has been on BIPAP for the whole night. speaking in short sentences. denies n/v, alert and awake. - Constitutional Vitals: Temp Pulse Resp BP Pulse Ox 97.0 F L 66 27 141/83 99 03/04/16 17:09 03/04/16 17:09 03/04/16 17:09 03/04/16 17:09 03/04/16 17:09 General appearance: Present: mild distress, A&O X 3 Exam: neck- supple chest- b/l wheezing, no creptns cvs-s1 and s2, no mr//g abd-soft, non tender, bs are present ext- no edema Internal Medicine: Result - Labs CBC & Chem 7: 03/04/16 16:54 03/04/16 11:18 Labs: Short CBC 03/04/16 03/04/16 Range/Units 11:18 16:54 WBC 19.4 H 19.3 H (4.3-11.1) K/mcL Hgb 11.0 L 10.9 L (11.5-15.4) g/dL Hct 35.2 L 34.6 L (35.3-44.9) % Plt Count 302 284 (140-400) K/mcL Neutrophils # 17.1 H (1.6-8.9) K/mcL BMP 03/04/16 11:18 Sodium 142 Potassium 4.6 H Chloride 111 H Carbon Dioxide 23 BUN 40 H Creatinine 1.12 H Glucose 171 H Calcium 10.8 Cardiac Enzymes 03/04/16 Range/Units 16:54 Troponin I 0.81 H* (0-0.03) ng/mL - ABG Interpretation ABG results: ABG ABG pH 7.36 pH Units (7.32-7.45) 03/04/16 09:20 ABG pCO2 42 mmHg (35-45) 03/04/16 09:20 ABG pO2 148 mmHg (85-104) H 03/04/16 09:20 ABG O2 Saturation 99 % (95-98) H 03/04/16 09:20 PT/INR, D-dimer PT 14.8 Seconds (9.4-12.1) H 03/04/16 16:54 - Impressions Impressions Chest X-Ray 03/04/16 08:43 IMPRESSION: Persistent bilateral airspace disease and vascular congestion. This could all represent mild congestive failure. The possibility superimposed pneumonia on the right is also considered. D/ / Austin Kimble MD / Austin Kimble MD Interpreting Provider: Austin Kimble MD Consult Discharge Plan - Plan Referrals: Lex Biswas, JEEPER OPERATOR [Non-Partnered Physician] -
--- NOTE | 2016-03-04 17:51 | Cardiology Consult Note ---
Date of Encounter: 03/04/16 Time of Encounter: 17:48 Assessment and Plan (1) Acute kidney injury Current Visit: Yes Status: Acute Per primary team, seems to be improving. (2) NSTEMI (non-ST elevated myocardial infarction) Current Visit: Yes Status: Acute Appears to have had recent NC. Denies and current symptoms. Recommend ASA, Heparin and BBlockers. Will need invasive evaluation prior to D/C. (3) Respiratory distress Current Visit: Yes Status: Acute Per primary team/ pulmonary. Viral pneumonia, COPD. Respiratory status stable. Discussion w patient/family: The assessment and plan as outlined above was discussed with the patient and/or family members who expressed understanding and agreement. All questions were answered. Thank you for involving us in the care of your patient. Please call with any questions. History of Present Illness Consult date: 03/04/16 Requesting physician: Vielka Castro Consult reason: NSTEMI History of present illness: Ms. Ludwig is a 80 year old female with a remote history of coronary disease who presented several days ago with respiratory distress thought to be secondary to viral pneumonia and COPD exacerbation. She also developed acute renal insufficiency. She's been treated aggressively with steroids and antibiotics. She has shown very gradual improvement. Today an EKG reveals changes from a previous EKG. Clinically there is been no change in she denies chest pain. Past Med Surg Social Fam HX - Past Medical History Medical history: COPD, hypertension Psychiatric history: no psych history - Past Surgical History Surgical History: hysterectomy, knee replacement - Social History Smoking Status: Current every day smoker Packs per day: 0.5 Smokeless Tobacco Status: No Alcohol use: none Drug use: none - Family History Mother Adopted: No Family Member Ethnicity: Non- Living Status: Age at : 51 Cause of : Cancer Stomach Hx Family Cancer: Yes (Stomach) Father Adopted: No Family Member Ethnicity: Non- Hx Family Cardiac Disorders: Yes Medications and Allergies Albuterol Sulfate [Proair Hfa] 2 puff IH Q4H PRN 09/03/15 [History] Alendronate Sodium [Fosamax] 70 mg PO QWEEK 09/03/15 [History] Atorvastatin Calcium [Lipitor] 20 mg PO DAILY 09/03/15 [History] Furosemide [Lasix] 20 mg PO DAILY 09/03/15 [History] Insulin Glargine,Hum.rec.anlog [Lantus Solostar] 20 unit SQ HS 09/03/15 [History ] Levothyroxine [Synthroid] 25 mcg PO DAILY 09/03/15 [History] Losartan Potassium [Cozaar] 100 mg PO DAILY 09/03/15 [History] Metoprolol [Lopressor] 100 mg PO BID 09/03/15 [History] Potassium Chloride [Klor-Con] 10 meq PO DAILY 09/03/15 [History] PredniSONE [Deltasone] 5 mg PO DAILY 09/03/15 [History] Cholecalciferol (Vitamin D3) [Vitamin D] 50,000 unit PO Q2W 03/01/16 [History] Allergies iodine Allergy (Verified 03/01/16 13:19) See Comments UNABLE TO CONFIRM REACTION- All Systems Review: A 10-system review of systems was performed and is negative for pertinent findings except as documented above in the HPI. Physical Examination Vital Signs, Last 4 Hours Temp Pulse Resp BP Pulse Ox 03/04/16 17:09 97.0 F L 66 27 141/83 99 03/04/16 16:41 24 99 03/04/16 16:40 97 F L 66 27 141/83 99 General: Conversant, No Apparent Distress HEENT: Atraumatic, Normocephaly, Mucus Membranes Moist Neck: No JVD, Normal carotid pulses Cardiac: Reg Rate and Rhythm, Normal S1 and S2, No Murmur Lungs: Other (Scattered rhonchi, wheezing, decreased at bases) Neuro: Alert and responsive, No focal deficits noted Abdomen: Soft, Non-Tender Skin: No rashes noted on visualized skin Musculoskeletal: No Chest Wall Tenderness Results 03/04/16 16:54 03/04/16 11:18 Lab Results 03/04/16 03/04/16 03/04/16 11:18 11:18 16:54 WBC 19.4 H Hgb 11.0 L Hct 35.2 L Plt Count 302 INR APTT Sodium 142 Potassium 4.6 H Chloride 111 H Carbon Dioxide 23 BUN 40 H Creatinine 1.12 H Glucose 171 H Calcium 10.8 Troponin I 0.81 H* 03/04/16 03/04/16 16:54 16:54 WBC 19.3 H Hgb 10.9 L Hct 34.6 L Plt Count 284 INR 1.4 APTT 26.4 Sodium Potassium Chloride Carbon Dioxide BUN Creatinine Glucose Calcium Troponin I - EKG Interpretation EKG results cardiology: other (Sinus rhythm, relatively late R-wave progression with T-wave inversion in anterior leads. This appears new from previous.) Consult Discharge Plan - Plan Referrals: Lex Biswas, DUSTIN [Non-Partnered Physician] -
[2016-03-04] MEDS: *HR* LORazepam 2 MG/ML VIAL IVP PRN (20:36)
[2016-03-04] MEDS ORDERED: Furosemide 40 MG/4 ML VIAL IVP ONE (21:21)
[2016-03-05] MEDS: Ipratropium/Albuterol Neb 3 ML IH SCH ×7 (00:01→23:04)
[2016-03-05 01:12] LABS: Activated Partial Thrombo Time 156.9 Seconds (26.0-36.0)
[2016-03-05 01:24] LABS: Heparin anti-factor XA UFH 1.19 IU/mL (0.30-0.70)
[2016-03-05] MEDS: MethylPREDNISolone 40 MG/ML VIAL IVP SCH ×3 (02:45→20:24)
[2016-03-05] MEDS: Levothyroxine 25 MCG TABLET PO SCH (05:38)
[2016-03-05] MEDS: Metoprolol 100 MG TABLET PO SCH ×2 (08:10→20:24)
[2016-03-05] MEDS: Furosemide 20 MG/2 ML VIAL IVP SCH (08:10)
[2016-03-05] MEDS: Pantoprazole 40 MG VIAL IVP SCH (08:10)
[2016-03-05] MEDS: Nicotine 14 MG PATCH.TD24 TD SCH (08:10)
[2016-03-05] MEDS: Insulin LISPRO 300 UNITS/3 ML VIAL SQ SCH ×4 (08:11→20:35)
[2016-03-05] MEDS: Budesonide/Formoterol 160/4.5 MDI IH SCH ×2 (08:20→19:20)
[2016-03-05] MEDS: Tiotropium 18 MCG inhalation IH SCH (08:24)
--- NOTE | 2016-03-05 08:56 | Pulmonology Progress Note ---
Date of Encounter: 03/05/16 Time of Encounter: 08:56 Assessment and Plan (1) Acute and chronic respiratory failure with hypoxia Current Visit: Yes Status: Acute COPD exacerbation improving Renal function panel pending today but if BUN/Cre stable would recommend continue diuresis (goal 1-1.5) as tolerated Encourage upright posture and OOBTC if tolerated Wean Fio2 to keep sats >88 to 92% Ok to give trial off BPAP later today as tolerated Would cont to hold IV fluids (2) Severe sepsis Current Visit: Yes Status: Acute s/t to PNA Improving persistent WBC elevation likely steroid effect if worsening s/s including fever would reculture treat for PNA x 8 days (3) Acute exacerbation of chronic obstructive airways disease Current Visit: No Status: Acute Appears s/t Coronavirus (some evidence that this is circulating in the community right now) Continue steroids Cont Bronchodilators Q4 Cont Symbicort 160/4.5 2 puffs twice daily Cont tiotropium 18 mcg daily Stop Cefepime (4) Community acquired pneumonia Current Visit: No Status: Acute Appears s/t to Coronavirus Would cont levaquin x 8 days pending cultures then D/C stop Cefepime (5) NSTEMI (non-ST elevated myocardial infarction) Current Visit: Yes Status: Acute on ACS protocol Managed by Cardiology ECHO pending (6) Tobacco abuse Current Visit: Yes Status: Acute counselled on smoking cessation Subjective Principal diagnosis: Pneumonia Interval history: ECG showed ST changes and Troponin ordered notable for increase from 0.08 to 0.8. Patient denies chest pain. Seen by Cardiology started on ACS protocol for NSTEMI. This morning still denies chest pain Reports some improvement in breathing after diuresis (nearly 2L) Wore BPAP all night Objective PUL Vital signs: Last Vital Signs Temp 98.5 F 03/05/16 06:54 Pulse 82 03/05/16 07:19 Resp 26 03/05/16 07:19 BP 175/90 03/05/16 06:54 Pulse Ox 97 03/05/16 07:19 General appearance: asleep Effort: mildly labored Auscultation: bilateral: wheezes (very faint expiratory wheeze nearly undetectable. ), rales, rhonchi Cardiovascular: regular rate and rhythm Gastrointestinal: normoactive bowel sounds Extremities: edema non-focal exam Results - Laboratory Findings CBC and BMP: 03/04/16 16:54 03/04/16 11:18 ABG ABG pH 7.36 pH Units (7.32-7.45) 03/04/16 09:20 ABG pCO2 42 mmHg (35-45) 03/04/16 09:20 ABG pO2 148 mmHg (85-104) H 03/04/16 09:20 ABG O2 Saturation 99 % (95-98) H 03/04/16 09:20 PT/INR, D-dimer PT 14.8 Seconds (9.4-12.1) H 03/04/16 16:54 Abnormal lab findings: Abnormal lab results WBC 19.3 K/mcL (4.3-11.1) H 03/04/16 16:54 RBC 3.66 M/mcL (3.82-4.97) L 03/04/16 16:54 Hgb 10.9 g/dL (11.5-15.4) L 03/04/16 16:54 Hct 34.6 % (35.3-44.9) L 03/04/16 16:54 MCHC 31.5 g/dL (31.6-35.5) L 03/04/16 16:54 Immature Gran % 4.4 % (0-4) H 03/04/16 11:18 Band Neutrophils % 6.0 % (0-4) H 03/03/16 11:58 Myelocytes % 2.0 % (0) H 03/02/16 05:42 Neutrophils # 17.1 K/mcL (1.6-8.9) H 03/04/16 11:18 Nucleated RBCs/100 WBC 0.1 /100 WBC (0) H 03/04/16 11:18 Reactive Lymphocytes Present (Not Present) A 03/04/16 11:18 Toxic Granulation Present (Not Present) A 03/02/16 05:42 Clumped Platelets Few (Not Present) A 03/01/16 01:42 Large Platelets Present (Not Present) A 03/03/16 11:58 Hypochromasia Present (Not Present) A 03/02/16 05:42 PT 14.8 Seconds (9.4-12.1) H 03/04/16 16:54 APTT 156.9 Seconds (26.0-36.0) H* D 03/05/16 00:24 Heparin Anti-Xa, Unfract 1.19 IU/mL (0.30-0.70) H* 03/05/16 00:24 ABG pO2 148 mmHg (85-104) H 03/04/16 09:20 ABG O2 Saturation 99 % (95-98) H 03/04/16 09:20 VBG pO2 97 mmHg (25-40) H 03/01/16 01:42 Potassium 4.6 mEq/L (3.5-4.5) H 03/04/16 11:18 Chloride 111 mEq/L (98-109) H 03/04/16 11:18 BUN 40 mg/dL (7-20) H 03/04/16 11:18 Creatinine 1.12 mg/dL (0.57-1.11) H 03/04/16 11:18 Est GFR ( Amer) 57 (> 60) L 03/04/16 11:18 Est GFR (Non-Af Amer) 47 (> 60) L 03/04/16 11:18 BUN/Creatinine Ratio 36 (6-26) H 03/04/16 11:18 Glucose 171 mg/dL (70-99) H 03/04/16 11:18 POC Glucose 97 (58-89) H 03/04/16 16:04 Calculated Osmolality 308 (280-300) H 03/04/16 11:18 Lactic Acid 3.0 mmol/L (0.5-2.2) H 03/01/16 01:42 Troponin I 0.81 ng/mL (0-0.03) H* 03/04/16 16:54 B-Natriuretic Peptide 543 pg/mL (0-100) H 03/01/16 01:42 Procalcitonin 13.88 ng/mL (<=0.10) H 03/01/16 01:42 Coronavirus OC43 (PCR) DETECTED (Not Detect) A 03/01/16 12:15 - Clinical Findings Intake & Output: Intake & Output 03/04/16 03/05/16 03/05/16 23:59 07:59 15:59 Intake Total 100 / 100 Output Total 1300 / 1300 1200 / 1200 Balance -1300 / -1300 -1100 / -1100 Weight 86.5 kg Consult Discharge Plan - Plan Referrals: Lex Biswas, BRAZER INDUCTION [Non-Partnered Physician] - (Unable to make request at this time (03-05-16))
[2016-03-05 09:58] LABS: BUN/Creatinine Ratio 33 (6-26); Blood Urea Nitrogen 34 mg/dL (7-20); Calcium 10.9 mg/dL (8.6-10.8); Carbon Dioxide 27 mEq/L (19-29); Chloride 103 mEq/L (98-109); Glucose 167 mg/dL (70-99); Osmolality,Calculated 301 (280-300); Sodium 140 mEq/L (136-145); eGFR For African Americans > 60 (> 60); eGFR For Non-African Americans 51 (> 60)
[2016-03-05 09:59] LABS: Hematocrit 37.8 % (35.3-44.9); Hemoglobin 11.9 g/dL (11.5-15.4); Mean Corpuscular HGB Conc 31.5 g/dL (31.6-35.5); Mean Corpuscular Hemoglobin 29.5 pg (28.0-33.3); Mean Corpuscular Volume 93.6 fL (83.0-100.0); Mean Platelet Volume 10.8 fL (9.4-12.4); Nucleated Red Blood Cells 0.2 /100 WBC (0); Platelet Count 282 K/mcL (140-400); Red Blood Count 4.04 M/mcL (3.82-4.97); Red Cell Distribution Width 14.2 % (11.5-14.5)
[2016-03-05 10:00] LABS: Potassium 3.2 mEq/L (3.5-4.5)
--- NOTE | 2016-03-05 10:20 | Cardiology Progress Note ---
Date of Encounter: 03/05/16 Time of Encounter: 10:16 Assessment and Plan (1) Acute kidney injury Current Visit: Yes Status: Acute Per primary team, seems to be improving. Recheck today. (2) NSTEMI (non-ST elevated myocardial infarction) Current Visit: Yes Status: Acute Continue medical mgmt., echo pending. Will need left heart cath when stable. (3) Respiratory distress Current Visit: Yes Status: Acute Per primary team/ pulmonary. Viral pneumonia, COPD. Respiratory status stable. Discussion w patient/family: The assessment and plan as outlined above was discussed with the patient and/or family members who expressed understanding and agreement. All questions were answered. Thank you for involving us in the care of your patient. Please call with any questions. Subjective Principal diagnosis: Pneumonia Interval history: On Bipap this Am, still denies chest pain. Objective Vital Signs, Last 4 Hours Temp Pulse Resp BP Pulse Ox 03/05/16 07:19 82 26 97 03/05/16 06:54 98.5 F 110 20 175/90 98 General: Other (ON Bipap) HEENT: Atraumatic, Normocephaly, Mucus Membranes Moist Neck: No JVD, Normal carotid pulses Cardiac: Reg Rate and Rhythm, Normal S1 and S2, No Murmur Lungs: Other (decreaed at bases) Neuro: Alert and responsive, No focal deficits noted Abdomen: Soft, Non-Tender Results 03/05/16 09:26 03/05/16 09:26 Lab Results 03/04/16 03/04/16 03/04/16 11:18 11:18 16:54 WBC 19.4 H Hgb 11.0 L Hct 35.2 L Plt Count 302 INR APTT Sodium 142 Potassium 4.6 H Chloride 111 H Carbon Dioxide 23 BUN 40 H Creatinine 1.12 H Glucose 171 H Calcium 10.8 Troponin I 0.81 H* 03/04/16 03/04/16 03/05/16 16:54 16:54 00:24 WBC 19.3 H Hgb 10.9 L Hct 34.6 L Plt Count 284 INR 1.4 APTT 26.4 156.9 H* D Sodium Potassium Chloride Carbon Dioxide BUN Creatinine Glucose Calcium Troponin I 03/05/16 03/05/16 03/05/16 09:26 09:26 09:26 WBC 26.5 H Hgb 11.9 Hct 37.8 Plt Count 282 INR APTT 64.0 H D Sodium 140 Potassium 3.2 L D Chloride 103 Carbon Dioxide 27 BUN 34 H Creatinine 1.04 Glucose 167 H Calcium 10.9 H Troponin I Consult Discharge Plan - Plan Referrals: Lex Biswas, MUSIC AGENT [Non-Partnered Physician] - (Unable to make request at this time (03-05-16))
[2016-03-05 11:20] LABS: Lymphocytes # 2.1 K/mcL (0.6-4.6); Neutrophils # 24.4 K/mcL (1.6-8.9)
[2016-03-05 11:21] LABS: Hypersegmented Neutrophils Present (Not Present); Macrocytosis Present (Not Present)
--- NOTE | 2016-03-05 15:10 | Internal Med Progress Note ---
Date of Encounter: 03/05/16 Time of Encounter: 15:07 - Assessment and plan (1) Acute and chronic respiratory failure with hypoxia Current Visit: Yes Status: Acute Assessment and plan: 2/2 COPD, acute PNA 2/2 mckeon virus. doing well on 4 l of NC. titarate Fio2 to keep sats >88 , intermittent BIPAP and wean as tolerated. BIPAP settings adjusted by pulmonary, appreciate pulmonary recommendtaions (2) Severe sepsis Current Visit: Yes Status: Acute Assessment and plan: resolved. 2/2 viral pneumonia (3) Acute exacerbation of chronic obstructive airways disease Current Visit: No Status: Acute Assessment and plan: steroids tapered to 40mg IV methylpred BID . Cont Bronchodilators Q4 cont levoflox. (4) Community acquired pneumonia Current Visit: No Status: Acute Assessment and plan: 2/2 mckeon virus. will stop vanco and zosyn and continue levoflox . increase in leucocytosis,possible 2/2 steroids, maru continue to monitor.. no fever. (5) NSTEMI (non-ST elevated myocardial infarction) Current Visit: Yes Status: Acute Assessment and plan: was noted to have st- wave changes in septal and lateral leads. repeat trop shows 0.8 from 0.08. however, rafat denies any chest pain and BP stable. she says she has h/o heart attack few years ago and had a LHC done but not sure if she had any stents placed in. on heparin drip, cardiology following,will follow recommendations, and will order ECHO. - Time Spent With Patient 25 - 35 minutes - Subjective Interval history: appears more stable today, off BIPAP and maintaining sats in 4l NC, denies any chest pain or palpitation has been on BIPAP for the whole night. speaking in short sentences and has abdominal breathing. denies n/v, alert and awake. on heparin drip for NSTEMI , being followed by cardiology. - Constitutional Vitals: Temp Pulse Resp BP Pulse Ox 97.9 F 68 18 149/75 97 03/05/16 11:48 03/05/16 11:48 03/05/16 11:48 03/05/16 11:48 03/05/16 11:50 General appearance: Present: A&O X 3 Exam: neck- supple chest- b/l wheezing, abdominal breathing, sounds better than before, no chest wall tenderness. cvs-s1 and s2, no mr//g abd-soft, non tender, bs are present ext- no edema. Internal Medicine: Result - Labs CBC & Chem 7: 03/05/16 09:26 03/05/16 09:26 Labs: Short CBC 03/04/16 03/05/16 Range/Units 16:54 09:26 WBC 19.3 H 26.5 H (4.3-11.1) K/mcL Hgb 10.9 L 11.9 (11.5-15.4) g/dL Hct 34.6 L 37.8 (35.3-44.9) % Plt Count 284 282 (140-400) K/mcL Neutrophils # 24.4 H (1.6-8.9) K/mcL BMP 03/05/16 09:26 Sodium 140 Potassium 3.2 L D Chloride 103 Carbon Dioxide 27 BUN 34 H Creatinine 1.04 Glucose 167 H Calcium 10.9 H Cardiac Enzymes 03/04/16 Range/Units 16:54 Troponin I 0.81 H* (0-0.03) ng/mL - ABG Interpretation ABG results: ABG ABG pH 7.36 pH Units (7.32-7.45) 03/04/16 09:20 ABG pCO2 42 mmHg (35-45) 03/04/16 09:20 ABG pO2 148 mmHg (85-104) H 03/04/16 09:20 ABG O2 Saturation 99 % (95-98) H 03/04/16 09:20 PT/INR, D-dimer PT 14.8 Seconds (9.4-12.1) H 03/04/16 16:54 Consult Discharge Plan - Plan Referrals: Lex Biswas, PRODUCT MANAGER [employer] [Non-Partnered Physician] - (Unable to make request at this time (03-05-16))
[2016-03-05] MEDS: Heparin 25,000 UNIT/500 ML D5W 25,000 UNIT/500 ML MLS IVC SCH ×2 (18:01→23:37)
[2016-03-06 00:53] LABS: Nucleated Red Blood Cells 0.1 /100 WBC (0)
[2016-03-06 01:02] LABS: Hematocrit 37.4 % (35.3-44.9); Hemoglobin 11.9 g/dL (11.5-15.4); Immature Platelets 5.6 % (1.1-6.1); Mean Corpuscular HGB Conc 31.8 g/dL (31.6-35.5); Mean Corpuscular Hemoglobin 29.3 pg (28.0-33.3); Mean Corpuscular Volume 92.1 fL (83.0-100.0); Platelet Count 257 K/mcL (140-400); Red Blood Count 4.06 M/mcL (3.82-4.97); Red Cell Distribution Width 13.8 % (11.5-14.5)
[2016-03-06 01:12] LABS: BUN/Creatinine Ratio 30 (6-26); Blood Urea Nitrogen 32 mg/dL (7-20); Calcium 10.1 mg/dL (8.6-10.8); Carbon Dioxide 27 mEq/L (19-29); Chloride 101 mEq/L (98-109); Glucose 234 mg/dL (70-99); Osmolality,Calculated 302 (280-300); Sodium 139 mEq/L (136-145); eGFR For African Americans > 60 (> 60); eGFR For Non-African Americans 51 (> 60)
[2016-03-06 01:16] LABS: Basophilic Stippling 1+ (Not Present); Monocytes # 0.6 K/mcL (0.0-1.3); Neutrophils # 27.9 K/mcL (1.6-8.9); Platelet Estimate Normal (Normal); Polychromasia 1+ (Not Present)
[2016-03-06 01:17] LABS: Dohle Bodies Present (Not Present); Toxic Granulation Present (Not Present)
[2016-03-06] MEDS: Ipratropium/Albuterol Neb 3 ML IH SCH ×6 (03:19→23:21)
[2016-03-06] MEDS: MethylPREDNISolone 40 MG/ML VIAL IVP SCH ×3 (04:53→19:47)
[2016-03-06] MEDS: Levothyroxine 25 MCG TABLET PO SCH (04:53)
--- NOTE | 2016-03-06 08:03 | ECHO - Doppler Report ---
Echocardiogram Name: Lisbet Ludwig Date of Study: 03/05/2016 Date: 1935 Ht: 64.0 in Medical Record#: [id number] Age: 80 Wt: 190.0 lb Gender: Female BSA: 1.91 Order #: [id number] Location: [facility] Room #: 2A47 Reading Physician: Michael Bonner MD, [facility] Towel Distributor: DEBBIE Montero, RVS Ordering Physician: Mellissa Castro MD Primary Physician: Boogie Puentes, Indications: Shortness of breath Impressions: Technically suboptimal due to poor echocardiographic windows. Mildly dilated left ventricle. Moderate LV systolic dysfunction, LVEF 35-40%. There are regional wall motion abnormalities, see diagram below. Mild left ventricular diastolic dysfunction. Right ventricle is not well visualized. Appears grossly normal in size and function. Mild mitral regurgitation. Unable to estimate RVSP due to lack of TR jet. Left Ventricular Wall Motion: Rest Echo Findings The apex, basal inferior, apical anterior, mid anterior, basal anterior, apical septal, mid inferior septal, basal inferior septal, apical lateral, mid anterior septal, mid inferior lateral and basal anterior septal [place] were hypokinetic. All other wall segments showed normal motion. Findings: Study Quality * Technically suboptimal due to poor echocardiographic windows. ECG Findings * Sinus rhythm with PACs. Left Ventricle * Mildly dilated left ventricle. * Moderate LV systolic dysfunction, LVEF 35-40%. There are regional wall motion abnormalities, see diagram below. * Normal LV wall thickness. * Mild left ventricular diastolic dysfunction. Right Ventricle * Right ventricle is not well visualized. Appears grossly normal in size and function. Left Atrium * Normal left atrial size. Right Atrium * Normal right atrial size. Aorta * Normally sized aortic root. Pericardium * There is no pericardial effusion present. IVC * Normal IVC dimensions and inspiratory collapse. Aortic Valve * Aortic valve not well visualized. * No aortic stenosis. * No aortic regurgitation. Mitral Valve * Normal mitral valve structure. * No mitral stenosis. * Mild mitral regurgitation. Tricuspid Valve * Tricuspid valve not well visualized. * No tricuspid stenosis. * No tricuspid regurgitation. * Unable to estimate RVSP due to lack of TR jet. Pulmonic Valve * Pulmonic valve not well visualized. * No pulmonic stenosis. * Trace pulmonic regurgitation. History Hypertension Diabetes Hypercholesteremia Congestive Heart Failure Measurements: BP: 149/ 75 2D Normal Values RVIDd: 2.60 cm IVSd: 1.00 cm 0.6 - 1.0 cm LVIDd: 5.60 cm 3.7 - 5.6 cm LVPWd: 1.00 cm 0.6 - 1.1 cm LVIDs: 4.30 cm 1.5 - 3.6 cm AO: 3.00 cm < 4.0 cm LA volume: 36 Mitral Valve Peak E:.51 m/sec Peak A:.98 m/sec E/A Ratio:0.5 Updated by Michael Bonner MD, FACC on 03/06/2016 7:53:14 AM electronically signed on 03/06/2016 7:57:14 AM with status of Final Wall Motion [place]: 1=Normal, 2=Hypokinesis, 3=Akinesis, 4=Dyskinesis, 5=Aneurysmal, 6=Hyperkinetic, X=Not Visualized (Blank)=Missing
[2016-03-06] MEDS: Metoprolol 100 MG TABLET PO SCH ×2 (08:26→19:47)
[2016-03-06] MEDS: Nicotine 14 MG PATCH.TD24 TD SCH (08:26)
[2016-03-06] MEDS: Furosemide 20 MG/2 ML VIAL IVP SCH ×2 (08:26→19:47)
[2016-03-06] MEDS: Pantoprazole 40 MG VIAL IVP SCH (08:26)
[2016-03-06] MEDS: Insulin LISPRO 300 UNITS/3 ML VIAL SQ SCH ×4 (08:27→22:02)
[2016-03-06] MEDS: Tiotropium 18 MCG inhalation IH SCH (10:01)
[2016-03-06] MEDS: Budesonide/Formoterol 160/4.5 MDI IH SCH ×2 (10:03→20:25)
--- NOTE | 2016-03-06 10:04 | Cardiology Progress Note ---
Date of Encounter: 03/07/16 Time of Encounter: 10:02 Assessment and Plan (1) Acute systolic (congestive) heart failure Current Visit: Yes Status: Acute EF 35-40% on TTE. Continue IV lasix. - 2780ml over last 24 hr. Fluid restriction, daily weights and strict I&O. LHC when able. (2) NSTEMI (non-ST elevated myocardial infarction) Current Visit: Yes Status: Acute Continue medical mgmt for now. Continues to have dyspnea and requires bi-pap. LHC when able. TTE shows new low EF at 35-40%, RWMA, mild diastolic dysfunction, mild MR. Change lopressor to toprol XL. If kidney function remains normal will consider adding diann-inhibitor. Continue heparin gtt. (3) Acute kidney injury Current Visit: Yes Status: Acute Per primary team. Kidney function back to baseline today. (4) Respiratory distress Current Visit: Yes Status: Acute Per primary team/ pulmonary. Viral pneumonia, COPD. Respiratory status stable. On steroids, nebs, and IV antibiotic. Discussion w patient/family: The assessment and plan as outlined above was discussed with the patient and/or family members who expressed understanding and agreement. All questions were answered. Thank you for involving us in the care of your patient. Please call with any questions. Subjective Principal diagnosis: Pneumonia Interval history: Pt continues to have significant dyspnea at rest when off bi-pap. Denies chest pain. Objective Vital Signs, Last 4 Hours Temp Pulse Resp BP Pulse Ox 03/06/16 08:35 98 03/06/16 07:47 97.6 F 85 20 153/87 98 General: Conversant, No Apparent Distress HEENT: Atraumatic, Normocephaly, Mucus Membranes Moist Neck: No JVD, Normal carotid pulses Cardiac: Reg Rate and Rhythm, Normal S1 and S2, No Murmur Lungs: Other (Expiratory wheezes throughout, respirations labored on NC. ) Neuro: Alert and responsive, No focal deficits noted Abdomen: Soft, Non-Tender Skin: No rashes noted on visualized skin Musculoskeletal: No Chest Wall Tenderness Extremities: No Clubbing, No Cyanosis, No Edema, Normal Pulses Results 03/07/16 08:07 03/07/16 08:07 Lab Results 03/05/16 03/05/16 03/05/16 09:26 15:54 19:56 WBC 26.5 H Hgb 11.9 Hct 37.8 Plt Count 282 APTT 56.3 H 109.6 H D Sodium Potassium Chloride Carbon Dioxide BUN Creatinine Glucose Calcium 03/06/16 03/06/16 03/06/16 00:34 00:34 00:34 WBC 28.5 H Hgb 11.9 Hct 37.4 Plt Count 257 APTT 65.0 H Sodium 139 Potassium 4.0 Chloride 101 Carbon Dioxide 27 BUN 32 H Creatinine 1.05 Glucose 234 H Calcium 10.1 03/06/16 05:57 WBC Hgb Hct Plt Count APTT 65.7 H Sodium Potassium Chloride Carbon Dioxide BUN Creatinine Glucose Calcium - Imaging and Cardiology Echo: report reviewed - EKG Interpretation EKG results cardiology: other (24 hour telemetry review shows SR with t wave inversion, Avg HR 65 bpm. No arrythmias seen.) Consult Discharge Plan - Plan Referrals: Lex Biswas, VENETIAN BLIND WORKER [Non-Partnered Physician] - ()
--- NOTE | 2016-03-06 10:47 | Internal Med Progress Note ---
Date of Encounter: 03/06/16 Time of Encounter: 10:43 - Assessment and plan (1) Acute and chronic respiratory failure with hypoxia Current Visit: Yes Status: Acute Assessment and plan: 2/2 COPD, acute PNA 2/2 mckeon virus. clinically improving on 4 l of NC. titarate Fio2 to keep sats >88 , intermittent BIPAP and wean as tolerated. (2) Severe sepsis Current Visit: Yes Status: Acute Assessment and plan: resolved. 2/2 viral pneumonia (3) Acute exacerbation of chronic obstructive airways disease Current Visit: No Status: Acute Assessment and plan: steroids tapered to 40mg IV methylpred BID, will change to oral tomm. Cont Bronchodilators Q4 cont levoflox for now. (4) Community acquired pneumonia Current Visit: No Status: Acute Assessment and plan: 2/2 mckeon virus. continue levoflox . increase in leucocytosis,possible 2/2 steroids, no fever, clinically looks better. (5) NSTEMI (non-ST elevated myocardial infarction) Current Visit: Yes Status: Acute Assessment and plan: was noted to have st- wave changes in septal and lateral leads. repeat trop shows 0.8 from 0.08. however, rafat denies any chest pain and BP stable. she says she has h/o heart attack few years ago and had a LHC done but not sure if she had any stents placed in. on heparin drip, cardiology following, ECHO shows low EF 35-40% Continue IV lasix, continue heparin drip as per cardio. 2780ml over last 24 hr. Fluid restriction, daily weights and strict I&O. cardiology recommended LHC when medically stable. - Time Spent With Patient 25 - 35 minutes - Subjective Interval history: was seen at the bedside, off BIPAP and on 4 l of NC , appears much better today however still has mild dyspnea. denies any chest pain or palpitation has been on BIPAP for the whole night. denies n/v, alert and awake. on heparin drip for NSTEMI , being followed by cardiology. - Constitutional Vitals: Temp Pulse Resp BP Pulse Ox 97.6 F 85 16 153/87 95 03/06/16 07:47 03/06/16 07:47 03/06/16 10:04 03/06/16 07:47 03/06/16 10:04 General appearance: Present: A&O X 3 Exam: neck-supple chest- b/l occasional wheezing, sounds better than yest. cvs-s1 and s2, no m/r/g abd-soft ,non tender, bs are present ext- no edema neuro - no focal defecits, alert and awake and oriented. Internal Medicine: Result - Labs CBC & Chem 7: 03/06/16 00:34 03/06/16 00:34 Labs: Short CBC 03/05/16 03/06/16 Range/Units 09:26 00:34 WBC 26.5 H 28.5 H (4.3-11.1) K/mcL Hgb 11.9 11.9 (11.5-15.4) g/dL Hct 37.8 37.4 (35.3-44.9) % Plt Count 282 257 (140-400) K/mcL Neutrophils # 24.4 H 27.9 H (1.6-8.9) K/mcL BMP 03/06/16 00:34 Sodium 139 Potassium 4.0 Chloride 101 Carbon Dioxide 27 BUN 32 H Creatinine 1.05 Glucose 234 H Calcium 10.1 - ABG Interpretation ABG results: ABG ABG pH 7.36 pH Units (7.32-7.45) 03/04/16 09:20 ABG pCO2 42 mmHg (35-45) 03/04/16 09:20 ABG pO2 148 mmHg (85-104) H 03/04/16 09:20 ABG O2 Saturation 99 % (95-98) H 03/04/16 09:20 PT/INR, D-dimer PT 14.8 Seconds (9.4-12.1) H 03/04/16 16:54 Consult Discharge Plan - Plan Referrals: Lex Biswas, BED OPERATOR [Non-Partnered Physician] - (Unable to make request at this time (03-05-16))
[2016-03-06] MEDS: Levofloxacin 250 MG/50 ML 250 MG/50 ML BAG IVPB SCH ×2 (11:46→16:05)
--- NOTE | 2016-03-06 14:47 | Pulmonology Progress Note ---
Date of Encounter: 03/06/16 Time of Encounter: 14:44 Assessment and Plan (1) Acute and chronic respiratory failure with hypoxia Current Visit: Yes Status: Acute COPD exacerbation improving Renal function panel pending today but if BUN/Cre stable would recommend continue diuresis (goal 1-1.5) as tolerated Encourage upright posture and OOBTC if tolerated Wean Fio2 to keep sats >88 to 92% Ok to give trial off BPAP tolerated (2) Severe sepsis Current Visit: Yes Status: Acute s/t to PNA Does have a persistent leukocytosis which is concerning as each day. This day it appears to be increasing some of this could be steroid effect would recommend reculturing patient account continues to be elevated him I would consider broadening out antimicrobials as still clinically ill-appearing although respiratory status continues to improve. Would also look hospital acquired causes of infection including urine bowel (3) Acute exacerbation of chronic obstructive airways disease Current Visit: No Status: Acute Appears s/t Coronavirus (some evidence that this is circulating in the community right now) Continue steroids Cont Bronchodilators Q4 Cont Symbicort 160/4.5 2 puffs twice daily Cont tiotropium 18 mcg daily (4) Community acquired pneumonia Current Visit: No Status: Acute Appears s/t to Coronavirus Would cont levaquin x 8 days pending cultures then D/C stop Cefepime (5) NSTEMI (non-ST elevated myocardial infarction) Current Visit: Yes Status: Acute on ACS protocol Managed by Cardiology ECHO pending (6) Tobacco abuse Current Visit: Yes Status: Acute counselled on smoking cessation Subjective Principal diagnosis: Pneumonia Interval history: Troponin has peaked Respiratory status is slightly improved able to come off BiPAP she still feels dyspneic Objective PUL Vital signs: Last Vital Signs Temp 97.6 F 03/06/16 11:00 Pulse 67 03/06/16 11:00 Resp 22 03/06/16 11:00 BP 127/67 03/06/16 11:00 Pulse Ox 95 03/06/16 11:00 General appearance: other (Pale ill-appearing fatigued) Auscultation: bilateral: diminished breath sounds, wheezes (Very faint wheeze lung exam has markedly improved over the last 24 hours) Cardiovascular: regular rate and rhythm Gastrointestinal: non-tender Extremities: edema normal mental status, non-focal exam depressed Results - Laboratory Findings CBC and BMP: 03/06/16 00:34 03/06/16 00:34 ABG ABG pH 7.36 pH Units (7.32-7.45) 03/04/16 09:20 ABG pCO2 42 mmHg (35-45) 03/04/16 09:20 ABG pO2 148 mmHg (85-104) H 03/04/16 09:20 ABG O2 Saturation 99 % (95-98) H 03/04/16 09:20 PT/INR, D-dimer PT 14.8 Seconds (9.4-12.1) H 03/04/16 16:54 Abnormal lab findings: Abnormal lab results WBC 28.5 K/mcL (4.3-11.1) H 03/06/16 00:34 Immature Gran % 4.4 % (0-4) H 03/04/16 11:18 Band Neutrophils % 6.0 % (0-4) H 03/03/16 11:58 Myelocytes % 2.0 % (0) H 03/02/16 05:42 Neutrophils # 27.9 K/mcL (1.6-8.9) H 03/06/16 00:34 Nucleated RBCs/100 WBC 0.1 /100 WBC (0) H 03/06/16 00:34 Hypersegmented Neuts Present (Not Present) A 03/05/16 09:26 Reactive Lymphocytes Present (Not Present) A 03/04/16 11:18 Toxic Granulation Present (Not Present) A 03/06/16 00:34 Dohle Bodies Present (Not Present) A 03/06/16 00:34 Clumped Platelets Few (Not Present) A 03/01/16 01:42 Large Platelets Present (Not Present) A 03/03/16 11:58 Polychromasia 1+ (Not Present) A 03/06/16 00:34 Hypochromasia Present (Not Present) A 03/02/16 05:42 Basophilic Stippling 1+ (Not Present) A 03/06/16 00:34 Macrocytosis Present (Not Present) A 03/05/16 09:26 PT 14.8 Seconds (9.4-12.1) H 03/04/16 16:54 APTT 65.7 Seconds (26.0-36.0) H 03/06/16 05:57 Heparin Anti-Xa, Unfract 1.19 IU/mL (0.30-0.70) H* 03/05/16 00:24 ABG pO2 148 mmHg (85-104) H 03/04/16 09:20 ABG O2 Saturation 99 % (95-98) H 03/04/16 09:20 VBG pO2 97 mmHg (25-40) H 03/01/16 01:42 BUN 32 mg/dL (7-20) H 03/06/16 00:34 Est GFR (Non-Af Amer) 51 (> 60) L 03/06/16 00:34 BUN/Creatinine Ratio 30 (6-26) H 03/06/16 00:34 Glucose 234 mg/dL (70-99) H 03/06/16 00:34 POC Glucose 178 (58-89) H 03/05/16 20:34 Calculated Osmolality 302 (280-300) H 03/06/16 00:34 Lactic Acid 3.0 mmol/L (0.5-2.2) H 03/01/16 01:42 Troponin I 0.81 ng/mL (0-0.03) H* 03/04/16 16:54 B-Natriuretic Peptide 543 pg/mL (0-100) H 03/01/16 01:42 Procalcitonin 13.88 ng/mL (<=0.10) H 03/01/16 01:42 Coronavirus OC43 (PCR) DETECTED (Not Detect) A 03/01/16 12:15 - Clinical Findings Intake & Output: Intake & Output 03/05/16 03/06/16 03/06/16 23:59 07:59 15:59 Intake Total 133 / 133 560 / 560 120 / 120 Output Total 350 / 350 950 / 950 Balance -217 / -217 560 / 560 -830 / -830 Weight 91.7 kg Consult Discharge Plan - Plan Referrals: Lex Biswas, POWERTRAIN DESIGN ENGINEER [Non-Partnered Physician] - (Unable to make request at this time (03-05-16))
[2016-03-07] MEDS: Ipratropium/Albuterol Neb 3 ML IH SCH ×3 (04:14→11:10)
[2016-03-07] MEDS: Levothyroxine 25 MCG TABLET PO SCH (05:28)
[2016-03-07] MEDS: MethylPREDNISolone 40 MG/ML VIAL IVP SCH ×3 (05:28→20:01)
[2016-03-07] MEDS: Heparin 25,000 UNIT/500 ML D5W 25,000 UNIT/500 ML MLS IVC SCH (07:17)
[2016-03-07] MEDS: Pantoprazole 40 MG VIAL IVP SCH (08:31)
[2016-03-07] MEDS: Metoprolol XL (24 HR) Succ 50 MG TAB.ER.24H PO SCH (08:31)
[2016-03-07] MEDS: Furosemide 20 MG/2 ML VIAL IVP SCH ×2 (08:31→20:05)
[2016-03-07 08:32] LABS: Basophils % 0.1 %; Hematocrit 35.2 % (35.3-44.9); Hemoglobin 11.4 g/dL (11.5-15.4); Immature Granulocytes % 3.4 % (0-4); Lymphocytes # 0.6 K/mcL (0.6-4.6); Lymphocytes % 2.7 %; Mean Corpuscular HGB Conc 32.4 g/dL (31.6-35.5); Mean Corpuscular Hemoglobin 29.9 pg (28.0-33.3); Mean Corpuscular Volume 92.4 fL (83.0-100.0); Mean Platelet Volume 11.3 fL (9.4-12.4); Monocytes # 0.5 K/mcL (0.0-1.3); Monocytes % 2.2 %; Neutrophils # 20.7 K/mcL (1.6-8.9); Platelet Count 243 K/mcL (140-400); Red Blood Count 3.81 M/mcL (3.82-4.97); Red Cell Distribution Width 13.9 % (11.5-14.5); Segmented Neutrophils % 91.6 %
[2016-03-07] MEDS: Insulin LISPRO 300 UNITS/3 ML VIAL SQ SCH ×4 (08:32→23:41)
[2016-03-07] MEDS: Tiotropium 18 MCG inhalation IH SCH (08:35)
[2016-03-07] MEDS: Nicotine 14 MG PATCH.TD24 TD SCH (08:41)
[2016-03-07 08:44] LABS: BUN/Creatinine Ratio 36 (6-26); Blood Urea Nitrogen 34 mg/dL (7-20); Calcium 9.1 mg/dL (8.6-10.8); Carbon Dioxide 30 mEq/L (19-29); Chloride 101 mEq/L (98-109); Glucose 213 mg/dL (70-99); Osmolality,Calculated 304 (280-300); Potassium 3.4 mEq/L (3.5-4.5); Sodium 140 mEq/L (136-145); eGFR For African Americans > 60 (> 60); eGFR For Non-African Americans 57 (> 60)
--- NOTE | 2016-03-07 09:28 | Electrocardiograph Report ---
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
--- NOTE | 2016-03-07 09:31 | Cardiology Progress Note ---
Date of Encounter: 03/07/16 Time of Encounter: 09:29 Assessment and Plan (1) Acute systolic (congestive) heart failure Current Visit: Yes Status: Acute EF 35-40% on TTE. Newly reduced compared to echo in 2010, EF 55% at that time. Continue IV lasix. 2L fluid restriction. - 1080 ml over last 24 hr. Fluid restriction, daily weights and strict I&O. Continues to have dyspnea, on bipap. Multifactoral in the setting of pneumonia, acute exacerbation COPD, and CHF. Continue toprol XL. Add diann inhibitor after LHC. LHC when stable from respiratory standpoint. (2) NSTEMI (non-ST elevated myocardial infarction) Current Visit: Yes Status: Acute Troponin as high as 0.81. WIll recheck to see if trending down. EKG showed changes with moderate T-wave inversion on 03/04. Re-check EKG. TTE shows acute sytolic dysfunction, EF 35-40%. Denies chest pain. Continue heparin gtt for now. Continue asa, statin, and bb. (3) Acute kidney injury Current Visit: Yes Status: Acute Per primary team. Kidney function back to baseline. (4) Respiratory distress Current Visit: Yes Status: Acute Per primary team/ pulmonary. Viral pneumonia, COPD. Respiratory status stable. On steroids, nebs, and IV antibiotic. Discussion w patient/family: The assessment and plan as outlined above was discussed with the patient and/or family members who expressed understanding and agreement. All questions were answered. Thank you for involving us in the care of your patient. Please call with any questions. Subjective Principal diagnosis: Pneumonia Interval history: Pt continues to have significant dyspnea at rest when off bi-pap. Requiring bi- pap this morning. Continue to have orthopnea. Denies chest pain. Objective Vital Signs, Last 4 Hours Temp Pulse Resp BP Pulse Ox 03/07/16 08:44 98 03/07/16 07:41 24 98 03/07/16 07:09 98 F 76 16 149/54 97 General: Conversant, Other (Obese female, appears uncomfortable on bi-pap. ) HEENT: Atraumatic, Normocephaly, Mucus Membranes Moist Neck: No JVD, Normal carotid pulses Cardiac: Reg Rate and Rhythm, Normal S1 and S2, No Murmur Lungs: Other (Respirations easy but shallow, lung sounds diminished throughout. ) Neuro: Alert and responsive, No focal deficits noted Abdomen: Soft, Non-Tender Skin: No rashes noted on visualized skin, Other (Pale and ill appearing. ) Musculoskeletal: No Chest Wall Tenderness Extremities: No Clubbing, No Cyanosis, No Edema, Normal Pulses Results 03/07/16 08:07 03/07/16 08:07 Lab Results 03/07/16 03/07/16 03/07/16 08:07 08:07 08:07 WBC 22.6 H Hgb 11.4 L Hct 35.2 L Plt Count 243 APTT 48.5 H Sodium 140 Potassium 3.4 L Chloride 101 Carbon Dioxide 30 H BUN 34 H Creatinine 0.95 Glucose 213 H Calcium 9.1 - Imaging and Cardiology Echo: report reviewed - EKG Interpretation EKG results cardiology: other (24 hour telemetry review shows avg HR at 77 bpm, occasional run of SVT noted. Longest being 10 beats long.) Consult Discharge Plan - Plan Referrals: Lex Biswas DOCK LOADER [Non-Partnered Physician] - ()
[2016-03-07] MEDS: Budesonide/Formoterol 160/4.5 MDI IH SCH ×2 (11:11→21:23)
[2016-03-07] MEDS ORDERED: Ipratropium/Albuterol Neb 3 ML IH PRN (12:49)
--- NOTE | 2016-03-07 15:03 | Internal Med Progress Note ---
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 clinically improving on 4 l of NC. titarate Fio2 to keep sats >88 , intermittent BIPAP and wean as tolerated. (2) Severe sepsis Current Visit: Yes Status: Acute Assessment and plan: resolved. 2/2 viral pneumonia. slight improvement in leucocytosis today, given clinical imporvement , suspect this is from steroids, no fever . (3) Acute exacerbation of chronic obstructive airways disease Current Visit: No Status: Acute Assessment and plan: steroids tapered to 40mg IV methylpred BID, will transition to oral. Cont Bronchodilators Q4 cont levoflox for total of 8 days. (4) Community acquired pneumonia Current Visit: No Status: Acute Assessment and plan: 2/2 mckeon virus. continue levoflox for total of 8 days increase in leucocytosis,possible 2/2 steroids, no fever, clinically looks better. will repeat CXR today, last one showed vascular congestion. (5) NSTEMI (non-ST elevated myocardial infarction) Current Visit: Yes Status: Acute Assessment and plan: was noted to have st- wave changes in septal and lateral leads. on heparin drip, cardiology following, ECHO shows low EF 35-40% Continue IV lasix, continue heparin drip as per cardio. Fluid restriction, daily weights and strict I&O. cardiology recommended LHC when medically stable. repeat trop decreased to 0.2 from 0.8 - Time Spent With Patient 25 - 35 minutes - Subjective Interval history: was seen at the bedside, off BIPAP and on 4 l of NC , looks much fresh today, still has sob but saturating 94% on 4 l. denies any chest pain or palpitation has been on BIPAP for the whole night. denies n/v, alert and awake. on heparin drip for NSTEMI , being followed by cardiology. - Constitutional Vitals: Temp Pulse Resp BP Pulse Ox 97.8 F 65 18 162/81 98 03/07/16 11:43 03/07/16 11:43 03/07/16 11:43 03/07/16 11:43 03/07/16 11:43 General appearance: Present: A&O X 3 Exam: neck- supple chest- b/l occasional wheezing that has decreased from before. cvs-s1 and s2, no mr//g abd-soft, non tender, bs are present ext- no edema neuro- alert and awake, no focal neuro defecits. Internal Medicine: Result - Labs CBC & Chem 7: 03/07/16 08:07 03/07/16 08:07 Labs: Short CBC 03/07/16 Range/Units 08:07 WBC 22.6 H (4.3-11.1) K/mcL Hgb 11.4 L (11.5-15.4) g/dL Hct 35.2 L (35.3-44.9) % Plt Count 243 (140-400) K/mcL Neutrophils # 20.7 H (1.6-8.9) K/mcL BMP 03/07/16 08:07 Sodium 140 Potassium 3.4 L Chloride 101 Carbon Dioxide 30 H BUN 34 H Creatinine 0.95 Glucose 213 H Calcium 9.1 Cardiac Enzymes 03/07/16 Range/Units 08:07 Troponin I 0.20 H* (0-0.03) ng/mL - ABG Interpretation ABG results: ABG ABG pH 7.36 pH Units (7.32-7.45) 03/04/16 09:20 ABG pCO2 42 mmHg (35-45) 03/04/16 09:20 ABG pO2 148 mmHg (85-104) H 03/04/16 09:20 ABG O2 Saturation 99 % (95-98) H 03/04/16 09:20 PT/INR, D-dimer PT 14.8 Seconds (9.4-12.1) H 03/04/16 16:54 Consult Discharge Plan - Plan Referrals: Lex Biswas, STRAIGHT CUTTER [Non-Partnered Physician] - ()
[2016-03-07] MEDS: Aspirin Enteric Coated 81 MG Tablet PO SCH (15:32)
[2016-03-08] MEDS: MethylPREDNISolone 40 MG/ML VIAL IVP SCH ×2 (03:43→11:01)
[2016-03-08] MEDS: Levothyroxine 25 MCG TABLET PO SCH (06:23)
[2016-03-08 07:33] LABS: BUN/Creatinine Ratio 33 (6-26); Blood Urea Nitrogen 34 mg/dL (7-20); Calcium 8.9 mg/dL (8.6-10.8); Carbon Dioxide 28 mEq/L (19-29); Chloride 98 mEq/L (98-109); Glucose 234 mg/dL (70-99); Osmolality,Calculated 305 (280-300); Sodium 140 mEq/L (136-145); eGFR For African Americans > 60 (> 60); eGFR For Non-African Americans 51 (> 60)
[2016-03-08 07:44] LABS: Basophils % 0.1 %; Hemoglobin 11.8 g/dL (11.5-15.4); Immature Granulocytes % 3.4 % (0-4); Lymphocytes # 0.6 K/mcL (0.6-4.6); Lymphocytes % 2.6 %; Mean Corpuscular HGB Conc 32.8 g/dL (31.6-35.5); Mean Corpuscular Hemoglobin 29.6 pg (28.0-33.3); Mean Corpuscular Volume 90.2 fL (83.0-100.0); Monocytes # 0.5 K/mcL (0.0-1.3); Monocytes % 2.4 %; Neutrophils # 20.7 K/mcL (1.6-8.9); Platelet Count 215 K/mcL (140-400); Red Blood Count 3.99 M/mcL (3.82-4.97); Red Cell Distribution Width 13.8 % (11.5-14.5); Segmented Neutrophils % 91.5 %
[2016-03-08] MEDS: Budesonide/Formoterol 160/4.5 MDI IH SCH ×2 (08:01→20:27)
[2016-03-08] MEDS: Tiotropium 18 MCG inhalation IH SCH (08:01)
[2016-03-08] MEDS: Aspirin Enteric Coated 81 MG Tablet PO SCH (08:32)
[2016-03-08] MEDS: Furosemide 20 MG/2 ML VIAL IVP SCH ×2 (08:32→22:18)
[2016-03-08] MEDS: Metoprolol XL (24 HR) Succ 50 MG TAB.ER.24H PO SCH (08:32)
[2016-03-08] MEDS: Nicotine 14 MG PATCH.TD24 TD SCH (08:33)
[2016-03-08] MEDS: Insulin LISPRO 300 UNITS/3 ML VIAL SQ SCH ×4 (08:33→22:20)
--- NOTE | 2016-03-08 09:16 | Cardiology Progress Note ---
Date of Encounter: 03/08/16 Time of Encounter: 09:13 Assessment and Plan (1) NSTEMI (non-ST elevated myocardial infarction) Current Visit: Yes Status: Acute Continue medical mgmt for now. Continues to have dyspnea and requires bi-pap. Spo2 decreased to 87% when laying flat. LHC when able. TTE shows new low EF at 35-40%, RWMA, mild diastolic dysfunction, mild MR. Continue asa, statin, and bb. Continue heparin gtt. She is chest pain free. Cardiology will sign off for now. Please call once stable from a respiratory standpoint. (2) Acute systolic (congestive) heart failure Current Visit: Yes Status: Acute EF 35-40% on TTE. Continue IV lasix. - 1800 ml over last 24 hr. Fluid restriction, daily weights and strict I&O. Continue lasix as tolerated. LHC when able. CHF education. Potassium 4.0, kidney function is stable. Add diann-inhibitor once LHC completed if able. (3) Acute kidney injury Current Visit: Yes Status: Acute Per primary team. Kidney function back to baseline today. (4) Respiratory distress Current Visit: Yes Status: Acute Per primary team/ pulmonary. Viral pneumonia, COPD, CHF. Respiratory status improving. On steroids, nebs, and IV antibiotic and lasix. Discussion w patient/family: The assessment and plan as outlined above was discussed with the patient and/or family members who expressed understanding and agreement. All questions were answered. Thank you for involving us in the care of your patient. Please call with any questions. Subjective Principal diagnosis: Pneumonia Interval history: Pt resting quietly in bed. Now on nasal cannula 3L with spo2 at 93%. Patient layed flat and repositioned with nurse. SPo2 decreased to 87% and pt became more SOB. Continues to be SOB at rest. moist cough noted. Denies chest pain. Objective Vital Signs, Last 4 Hours Temp Pulse Resp BP Pulse Ox 03/08/16 08:02 17 94 L 03/08/16 07:09 97.9 F 63 17 139/62 94 L General: Conversant, No Apparent Distress HEENT: Atraumatic, Normocephaly, Mucus Membranes Moist Neck: No JVD, Normal carotid pulses Cardiac: Reg Rate and Rhythm, Normal S1 and S2, No Murmur Lungs: Other (Respirations labored with minimal movement. Rhonci scattered throughout. ) Neuro: Alert and responsive, No focal deficits noted Abdomen: Soft, Non-Tender Skin: No rashes noted on visualized skin Musculoskeletal: No Chest Wall Tenderness Extremities: No Clubbing, No Edema, Normal Pulses Results 03/08/16 06:38 03/08/16 06:38 Lab Results 03/07/16 03/07/16 03/07/16 08:07 15:07 21:12 WBC Hgb Hct Plt Count APTT 72.7 H 73.7 H Sodium Potassium Chloride Carbon Dioxide BUN Creatinine Glucose Calcium Troponin I 0.20 H* 03/08/16 03/08/16 06:38 06:38 WBC 22.6 H Hgb 11.8 Hct 36.0 Plt Count 215 APTT Sodium 140 Potassium 4.0 Chloride 98 Carbon Dioxide 28 BUN 34 H Creatinine 1.04 Glucose 234 H Calcium 8.9 Troponin I - EKG Interpretation EKG results cardiology: personally reviewed (SR with diffuse st/t wave changes.) , other (24 hour telemetry shows NSR.) Consult Discharge Plan - Plan Referrals: Lex Biswas, CERTIFIED PEER SPECIALIST [Non-Partnered Physician] - ()
--- NOTE | 2016-03-08 09:56 | Electrocardiograph Report ---
[facility] Test Date: 2016-03-07 Pat Name: Lisbet Ludwig Department: 112 Room: 2A23 Gender: F Computational Chemist: : 1935 Requested By: Gino Sunshine Order Number: [id number] Reading MD: Christofer Byrd Measurements Intervals [place] Rate: 73 P: 64 MT: 126 QRS: 7 QRSD: 95 T: 187 QT: 453 QTc: 478 Interpretive Statements SINUS RHYTHM MARKED T-WAVE ABNORMALITY, CONSIDER ANTEROLATERAL ISCHEMIA MODERATE T-WAVE ABNORMALITY, CONSIDER INFERIOR ISCHEMIA Electronically Signed On 03-08-16 09:55:19 EST by Christofer Byrd
[2016-03-08] MEDS: Levofloxacin 250 MG/50 ML 250 MG/50 ML BAG IVPB SCH (11:01)
[2016-03-08] MEDS: Heparin 25,000 UNIT/500 ML D5W 25,000 UNIT/500 ML MLS IVC SCH (12:53)
--- NOTE | 2016-03-08 15:17 | Internal Med Progress Note ---
Date of Encounter: 03/08/16 Time of Encounter: 14:56 - Assessment and plan (1) Acute and chronic respiratory failure with hypoxia Current Visit: Yes Status: Acute Assessment and plan: 2/2 COPD, acute PNA 2/2 mckeon virus. clinically improving on 4 l of NC. titarate Fio2 to keep sats >88 , intermittent BIPAP as needed. (2) Severe sepsis Current Visit: Yes Status: Acute Assessment and plan: resolved. 2/2 viral pneumonia. leucocytosis persistent, given clinical imporvement , suspect this is from steroids, no fever . (3) Acute exacerbation of chronic obstructive airways disease Current Visit: No Status: Inactive Assessment and plan: will transition steroids to oral. Cont Bronchodilators Q4 cont levoflox for total of 8 days. (4) Community acquired pneumonia Current Visit: No Status: Inactive Assessment and plan: 2/2 mckeon virus. continue levoflox for total of 8 days increase in leucocytosis,possible 2/2 steroids, no fever, clinically looks better. (5) NSTEMI (non-ST elevated myocardial infarction) Current Visit: Yes Status: Acute Assessment and plan: was noted to have st- wave changes in septal and lateral leads. on heparin drip, cardiology following, ECHO shows low EF 35-40% Continue IV lasix, continue heparin drip as per cardio. Fluid restriction, daily weights and strict I&O. cardiology recommended LHC when medically stable. repeat trop decreased to 0.2 from 0.8 - Time Spent With Patient 25 - 35 minutes - Subjective Interval history: was seen at the bedside, off BIPAP and on 4 l of NC , appears a lot better. denies any chest pain or palpitation has been on BIPAP at night. denies n/v, alert and awake. on heparin drip for NSTEMI , being followed by cardiology. - Constitutional Vitals: Temp Pulse Resp BP Pulse Ox 97.9 F 63 17 139/62 94 L 03/08/16 07:09 03/08/16 07:09 03/08/16 13:57 03/08/16 07:09 03/08/16 13:57 General appearance: Present: A&O X 3 Exam: neck- supple chest- b/l occasional wheezing that has decreased from before. cvs-s1 and s2, no mr//g abd-soft, non tender, bs are present ext- no edema neuro- alert and awake, no focal neuro defecits. Internal Medicine: Result - Labs CBC & Chem 7: 03/08/16 06:38 03/08/16 06:38 Labs: Short CBC 03/08/16 Range/Units 06:38 WBC 22.6 H (4.3-11.1) K/mcL Hgb 11.8 (11.5-15.4) g/dL Hct 36.0 (35.3-44.9) % Plt Count 215 (140-400) K/mcL Neutrophils # 20.7 H (1.6-8.9) K/mcL BMP 03/08/16 06:38 Sodium 140 Potassium 4.0 Chloride 98 Carbon Dioxide 28 BUN 34 H Creatinine 1.04 Glucose 234 H Calcium 8.9 - ABG Interpretation ABG results: ABG ABG pH 7.36 pH Units (7.32-7.45) 03/04/16 09:20 ABG pCO2 42 mmHg (35-45) 03/04/16 09:20 ABG pO2 148 mmHg (85-104) H 03/04/16 09:20 ABG O2 Saturation 99 % (95-98) H 03/04/16 09:20 PT/INR, D-dimer PT 14.8 Seconds (9.4-12.1) H 03/04/16 16:54 Consult Discharge Plan - Plan Referrals: Lex Biswas, DUSTIN [Non-Partnered Physician] - 03/17/16 4:40 pm ()
[2016-03-08] MEDS: Insulin DETEMIR 100 UNIT/ML X5UNITS SQ SCH (22:18)
[2016-03-09] MEDS: Levothyroxine 25 MCG TABLET PO SCH (05:18)
[2016-03-09 08:20] LABS: Basophils % 0.2 %; Hematocrit 39.3 % (35.3-44.9); Hemoglobin 12.4 g/dL (11.5-15.4); Immature Granulocytes % 1.4 % (0-4); Lymphocytes # 1.1 K/mcL (0.6-4.6); Lymphocytes % 4.8 %; Mean Corpuscular HGB Conc 31.6 g/dL (31.6-35.5); Mean Corpuscular Hemoglobin 28.9 pg (28.0-33.3); Mean Corpuscular Volume 91.6 fL (83.0-100.0); Mean Platelet Volume 10.9 fL (9.4-12.4); Monocytes # 0.7 K/mcL (0.0-1.3); Monocytes % 3.3 %; Neutrophils # 20.2 K/mcL (1.6-8.9); Nucleated Red Blood Cells 0.1 /100 WBC (0); Platelet Count 267 K/mcL (140-400); Red Blood Count 4.29 M/mcL (3.82-4.97); Red Cell Distribution Width 13.8 % (11.5-14.5); Segmented Neutrophils % 90.3 %
[2016-03-09] MEDS: Aspirin Enteric Coated 81 MG Tablet PO SCH (08:20)
[2016-03-09] MEDS: Metoprolol XL (24 HR) Succ 50 MG TAB.ER.24H PO SCH (08:20)
[2016-03-09] MEDS: Furosemide 20 MG/2 ML VIAL IVP SCH ×2 (08:21→21:17)
[2016-03-09] MEDS: Nicotine 14 MG PATCH.TD24 TD SCH (08:21)
[2016-03-09] MEDS: Insulin LISPRO 300 UNITS/3 ML VIAL SQ SCH ×4 (08:29→23:32)
[2016-03-09] MEDS: Tiotropium 18 MCG inhalation IH SCH (08:32)
[2016-03-09] MEDS: Budesonide/Formoterol 160/4.5 MDI IH SCH ×2 (08:32→21:50)
[2016-03-09 08:45] LABS: BUN/Creatinine Ratio 35 (6-26); Blood Urea Nitrogen 34 mg/dL (7-20); Calcium 8.7 mg/dL (8.6-10.8); Carbon Dioxide 37 mEq/L (19-29); Chloride 97 mEq/L (98-109); Glucose 136 mg/dL (70-99); Osmolality,Calculated 304 (280-300); Sodium 142 mEq/L (136-145); eGFR For African Americans > 60 (> 60); eGFR For Non-African Americans 55 (> 60)
[2016-03-09 08:49] LABS: Potassium 2.6 mEq/L (3.5-4.5)
[2016-03-09] MEDS ORDERED: MethylPREDNISolone 40 MG/ML VIAL IVP SCH (09:00)
[2016-03-09] MEDS: Levofloxacin 250 MG/50 ML 250 MG/50 ML BAG IVPB SCH (11:00)
[2016-03-09] MEDS: Potassium Chloride 40 MEQ, Lidocaine 1% 2 ML in D5% in Water 500 ML IVPB SCH ×2 (13:36→17:45)
[2016-03-09] MEDS: Heparin 25,000 UNIT/500 ML D5W 25,000 UNIT/500 ML MLS IVC SCH (15:02)
--- NOTE | 2016-03-09 15:03 | Cardiology Progress Note ---
Date of Encounter: 03/09/16 Time of Encounter: 15:05 Assessment and Plan (1) NSTEMI (non-ST elevated myocardial infarction) Current Visit: Yes Status: Acute Troponin 0.08, 0.81, 0.20. TTE shows new low EF at 35-40%, RWMA, mild diastolic dysfunction, mild MR. Continue asa, statin, and bb. Continue heparin gtt. She is chest pain free. Planning for LHC once stable from respiratory standpoint. Continues to have dyspnea but improving. Now on 6 L NC and spo2 remains 97-100% Was laying flat for 30 min but became anxious and does not want to lay flat anymore.Became increasingly SOB with sitting up in bed. We will keep NPO after midnight and re-evaluate in the morning. Possible LHC tomorrow. (2) Acute systolic (congestive) heart failure Current Visit: Yes Status: Acute EF 35-40% on TTE. Continue IV lasix. No output documented in last 24 hours. 500ml in sierra currently. Fluid restriction, daily weights and strict I&O. Continue lasix as tolerated. LHC when able. CHF education. Potassium 2.9- replaced per IM, kidney function is stable. Add diann-inhibitor once LHC completed if able. (3) Acute kidney injury Current Visit: Yes Status: Acute Per primary team. Kidney function stable. (4) Respiratory distress Current Visit: Yes Status: Acute Per primary team/ pulmonary. Viral pneumonia, COPD, CHF. Respiratory status improving. On steroids, nebs, and IV antibiotic and lasix. Discussion w patient/family: The assessment and plan as outlined above was discussed with the patient and/or family members who expressed understanding and agreement. All questions were answered. Thank you for involving us in the care of your patient. Please call with any questions. Subjective Principal diagnosis: Pneumonia Interval history: Pt resting quietly in bed. Now on nasal cannula 6L with spo2 at 97%-100%. Patient layed flat for 15 min and SPO2 remained above 95%. She did continue to have labored breathing. After 20 min she asked to sit up and had increasing SOB. She denies any chest pain. Objective Vital Signs Temp Pulse Resp BP Pulse Ox 03/09/16 10:52 98.4 F 79 20 113/66 95 03/09/16 08:34 18 97 03/09/16 08:24 97.8 F 61 18 148/74 97 03/09/16 04:56 98.1 F 58 18 138/77 98 03/09/16 01:14 97.8 F 76 19 142/76 94 L 03/08/16 20:44 97.5 F L 69 18 127/73 97 03/08/16 20:27 18 92 L Intake and Output 03/08/16 03/09/16 03/09/16 23:59 07:59 15:59 Intake Total 0 / 0 500 / 500 Balance 0 / 0 500 / 500 Intake: IV Fluids 0 / 0 500 / 500 Heparin 25,000 UNIT/500 0 / 0 500 / 500 ML D5W 25,000 unit In 500 ml @ 12 UNIT/KG/HR 21. 288 mls/hr IVC .[id number] [facility] Rx#:[id number] Oral 0 / 0 Other: Meal Breakfast Percent of Meal Consumed 30% Weight 77.224 kg Blood Glucose* 140 136 321 Patient Weight 03/09/16 23:59 Weight 77.224 kg General: Conversant HEENT: Atraumatic, Normocephaly, Mucus Membranes Moist Neck: No JVD, Normal carotid pulses Cardiac: Reg Rate and Rhythm, Normal S1 and S2, No Murmur Lungs: Other (Respirations labored appearing, rhonci scattered throughout. ) Neuro: Alert and responsive, No focal deficits noted Abdomen: Soft, Non-Tender Skin: No rashes noted on visualized skin Musculoskeletal: No Chest Wall Tenderness Extremities: No Clubbing Results 03/09/16 08:08 03/09/16 08:08 Lab Results 03/08/16 03/09/16 03/09/16 20:53 08:08 08:08 WBC 22.4 H Hgb 12.4 Hct 39.3 Plt Count 267 APTT 77.6 H Sodium 142 Potassium 2.6 L D Chloride 97 L Carbon Dioxide 37 H BUN 34 H Creatinine 0.98 Glucose 136 H Calcium 8.7 Consult Discharge Plan - Plan Referrals: Lex Biswas CNP [Non-Partnered Physician] - 03/17/16 4:40 pm ()
--- NOTE | 2016-03-09 16:18 | Internal Med Progress Note ---
Date of Encounter: 03/09/16 Time of Encounter: 16:16 - Assessment and plan (1) Acute and chronic respiratory failure with hypoxia Current Visit: Yes Status: Acute Assessment and plan: 2/2 COPD, acute PNA 2/2 mckeon virus. clinically improving on 4 l of NC. titarate Fio2 to keep sats >88 , intermittent BIPAP as needed. (2) Severe sepsis Current Visit: Yes Status: Acute Assessment and plan: resolved. 2/2 viral pneumonia. leucocytosis persistent, given clinical imporvement , suspect this is from steroids, no fever . (3) Acute exacerbation of chronic obstructive airways disease Current Visit: No Status: Inactive Assessment and plan: chnaged steroids to oral. Cont Bronchodilators Q4 cont levoflox for total of 8 days. (4) Community acquired pneumonia Current Visit: No Status: Inactive Assessment and plan: 2/2 mckeon virus. continue levoflox for total of 8 days increase in leucocytosis,possible 2/2 steroids, no fever, clinically looks better. (5) NSTEMI (non-ST elevated myocardial infarction) Current Visit: Yes Status: Acute Assessment and plan: was noted to have st- wave changes in septal and lateral leads. on heparin drip, cardiology following, ECHO shows low EF 35-40% Continue IV lasix, continue heparin drip as per cardio. Fluid restriction, daily weights and strict I&O. cardiology recommended C possible tomm if stable, NPO MN repeat trop decreased to 0.2 from 0.8 - Time Spent With Patient 25 - 35 minutes - Subjective Interval history: was seen at the bedside, off BIPAP and on 4 l of NC , clinically better. denies any chest pain or palpitation BIPAP prn at night. denies n/v, alert and awake. on heparin drip for NSTEMI , being followed by cardiology, planned for possible cath tomm. - Constitutional Vitals: Temp Pulse Resp BP Pulse Ox 97.8 F 66 20 107/62 99 03/09/16 16:07 03/09/16 16:07 03/09/16 16:07 03/09/16 16:07 03/09/16 16:07 General appearance: Present: A&O X 3 Exam: neck- supple chest- occasional wheezing, no creptns cvs-s1 and s2, no mr/g abd-soft, non tender, bs are present ext-no edema neuro- no focal neuro defecits. Internal Medicine: Result - Labs CBC & Chem 7: 03/09/16 08:08 03/09/16 08:08 Labs: Short CBC 03/09/16 Range/Units 08:08 WBC 22.4 H (4.3-11.1) K/mcL Hgb 12.4 (11.5-15.4) g/dL Hct 39.3 (35.3-44.9) % Plt Count 267 (140-400) K/mcL Neutrophils # 20.2 H (1.6-8.9) K/mcL BMP 03/09/16 08:08 Sodium 142 Potassium 2.6 L D Chloride 97 L Carbon Dioxide 37 H BUN 34 H Creatinine 0.98 Glucose 136 H Calcium 8.7 - ABG Interpretation ABG results: ABG ABG pH 7.36 pH Units (7.32-7.45) 03/04/16 09:20 ABG pCO2 42 mmHg (35-45) 03/04/16 09:20 ABG pO2 148 mmHg (85-104) H 03/04/16 09:20 ABG O2 Saturation 99 % (95-98) H 03/04/16 09:20 PT/INR, D-dimer PT 14.8 Seconds (9.4-12.1) H 03/04/16 16:54 Consult Discharge Plan - Plan Referrals: Lex Biswas, LIE DETECTOR OPERATOR [Non-Partnered Physician] - 03/17/16 4:40 pm ()
[2016-03-09] MEDS ORDERED: Insulin LISPRO 300 UNITS/3 ML VIAL SQ ONE (17:41)
[2016-03-09] MEDS: Insulin DETEMIR 100 UNIT/ML X5UNITS SQ SCH (21:15)
[2016-03-10 05:06] LABS: Basophils % 0.1 %; Hematocrit 33.9 % (35.3-44.9); Immature Granulocytes % 1.4 % (0-4); Immature Platelets 7.2 % (1.1-6.1); Lymphocytes # 1.4 K/mcL (0.6-4.6); Lymphocytes % 5.7 %; Mean Corpuscular HGB Conc 32.4 g/dL (31.6-35.5); Mean Corpuscular Hemoglobin 29.8 pg (28.0-33.3); Mean Corpuscular Volume 91.9 fL (83.0-100.0); Mean Platelet Volume 11.6 fL (9.4-12.4); Monocytes # 0.9 K/mcL (0.0-1.3); Monocytes % 3.8 %; Nucleated Red Blood Cells 0.1 /100 WBC (0); Platelet Count 243 K/mcL (140-400); Red Blood Count 3.69 M/mcL (3.82-4.97); Red Cell Distribution Width 14.5 % (11.5-14.5)
[2016-03-10 05:19] LABS: BUN/Creatinine Ratio 35 (6-26); Blood Urea Nitrogen 30 mg/dL (7-20); Calcium 8.3 mg/dL (8.6-10.8); Carbon Dioxide 32 mEq/L (19-29); Chloride 99 mEq/L (98-109); Glucose 175 mg/dL (70-99); Osmolality,Calculated 300 (280-300); Potassium 3.2 mEq/L (3.5-4.5); Sodium 140 mEq/L (136-145); eGFR For African Americans > 60 (> 60); eGFR For Non-African Americans > 60 (> 60)
[2016-03-10] MEDS: Levothyroxine 25 MCG TABLET PO SCH (05:25)
[2016-03-10 05:28] LABS: Neutrophils # 21.5 K/mcL (1.6-8.9)
[2016-03-10 05:39] LABS: Large Platelets Present (Not Present); Platelet Estimate Normal (Normal)
[2016-03-10 05:40] LABS: Basophilic Stippling 1+ (Not Present); Polychromasia 2+ (Not Present)
[2016-03-10] MEDS: Budesonide/Formoterol 160/4.5 MDI IH SCH ×2 (07:56→21:14)
[2016-03-10] MEDS: Tiotropium 18 MCG inhalation IH SCH (07:58)
[2016-03-10] MEDS: predniSONE 20 MG TABLET PO SCH (08:25)
[2016-03-10] MEDS: Aspirin Enteric Coated 81 MG Tablet PO SCH (08:25)
[2016-03-10] MEDS: Nicotine 14 MG PATCH.TD24 TD SCH (08:29)
[2016-03-10] MEDS: Metoprolol XL (24 HR) Succ 50 MG TAB.ER.24H PO SCH (08:30)
[2016-03-10] MEDS: Furosemide 20 MG/2 ML VIAL IVP SCH ×2 (08:35→22:06)
[2016-03-10] MEDS: Insulin LISPRO 300 UNITS/3 ML VIAL SQ SCH ×5 (08:46→22:06)
[2016-03-10 09:37] LABS: Bilirubin,Urine Negative (Negative); Blood,Urine Small (Negative); Clarity,Urine Clear (Clear); Color,Urine Yellow (Yellow); Glucose,Urine (UA) Normal (Normal); Ketones,Urine Negative (Negative); Leukocyte Esterase,Urine Negative (Negative); Nitrite,Urine Negative (Negative); Protein,Urine Negative (Neg-Trace); Specific Gravity,Urine 1.009 (1.010-1.025); Urobilinogen,Urine Normal (Normal)
[2016-03-10 09:41] LABS: Bacteria,Urine None Seen per hpf (None-Few); Hyaline Casts,Urine None Seen per lpf (None-Few); Squamous Epithelial Cell,Urine Few per lpf (None-Few); WBC,Urine 0-3 per hpf (0-3)
--- NOTE | 2016-03-10 12:08 | Event Note ---
Date of Encounter: 03/10/16 Time of Encounter: 12:08 - Cardiology Event Note Pt able to tolerate lying flat and maintain O2 sat on nasal cannula oxygen. Proceed with [facility] today. R/B/A discussed. K 3.2--will replace.
[2016-03-10] MEDS: Heparin 25,000 UNIT/500 ML D5W 25,000 UNIT/500 ML MLS IVC SCH ×2 (12:22→12:25)
[2016-03-10] MEDS ORDERED: methylPREDNISolone 125 MG/2 ML VIAL IVP ONE (12:37)
[2016-03-10] MEDS: Levofloxacin 250 MG/50 ML 250 MG/50 ML BAG IVPB SCH (12:53)
[2016-03-10 13:36] LABS: INR 1.4; Prothrombin Time 15.1 Seconds (9.4-12.1)
[2016-03-10 13:54] LABS: Activated Partial Thrombo Time 164.1 Seconds (26.0-36.0)
[2016-03-10] MEDS ORDERED: *HR* Heparin 10,000 UNIT/10 ML VIAL ONE (14:10)
[2016-03-10] MEDS ORDERED: Heparin 1,000 UNITS/500 mL NS 500 ML ONE (14:10)
[2016-03-10] MEDS ORDERED: Verapamil 5 MG/2 ML VIAL ONE (14:10)
[2016-03-10] MEDS ORDERED: 0.9 % Sodium Chloride 1,000 ML ONE ×2 (14:10→14:42)
[2016-03-10] MEDS ORDERED: Nitroglycerin 1,000 MCG/10 ML VIAL IV ONE (14:11)
[2016-03-10 14:16] LABS: Heparin anti-factor XA UFH 1.14 IU/mL (0.30-0.70)
[2016-03-10 14:28] LABS: INR 1.3; Prothrombin Time 14.3 Seconds (9.4-12.1)
[2016-03-10 14:34] LABS: Activated Partial Thrombo Time 64.6 Seconds (26.0-36.0)
[2016-03-10] MEDS ORDERED: *HR* Midazolam HCl 2 MG/2 ML VIAL ONE (14:41)
[2016-03-10] MEDS ORDERED: *HR* FentaNYL (PF) 100 MCG/2 ML VIAL ONE (14:41)
[2016-03-10] MEDS ORDERED: methylPREDNISolone 125 MG/2 ML VIAL ONE (14:44)
--- NOTE | 2016-03-10 14:44 | Internal Med Progress Note ---
Date of Encounter: 03/10/16 Time of Encounter: 14:40 - Assessment and plan (1) Acute and chronic respiratory failure with hypoxia Current Visit: Yes Status: Acute Assessment and plan: 2/2 COPD, acute PNA 2/2 mckeon virus. clinically improving on 4 l of NC. titarate Fio2 to keep sats >88 , intermittent BIPAP as needed. (2) Severe sepsis Current Visit: Yes Status: Acute Assessment and plan: resolved. 2/2 viral pneumonia. leucocytosis persistent, given clinical imporvement , suspect this is from steroids, no fever . (3) NSTEMI (non-ST elevated myocardial infarction) Current Visit: Yes Status: Acute Assessment and plan: was noted to have st- wave changes in septal and lateral leads. on heparin drip, cardiology following, ECHO shows low EF 35-40% Continue IV lasix, continue heparin drip as per cardio. Fluid restriction, daily weights and strict I&O. cardiology recommended LHC scheduled for today, we will follow RESULTS repeat trop decreased to 0.2 from 0.8 - Time Spent With Patient 25 - 35 minutes - Subjective Interval history: was seen at the bedside, off BIPAP and on 4 l of NC, clinically better. denies any chest pain or palpitation BIPAP prn at night. denies n/v, alert and awake. on heparin drip for NSTEMI , being followed by cardiology, scheduled for cath today. - Constitutional Vitals: Temp Pulse Resp BP Pulse Ox 98.3 F 74 18 111/68 96 03/10/16 10:46 03/10/16 10:46 03/10/16 10:46 03/10/16 10:46 03/10/16 10:46 General appearance: Present: A&O X 3 Exam: neck- supple chest- b/l clear, no added sounds CVS- s1 and s2, no m/r/g abd-soft, non tender, bs are present ext- no edema neuro- no focal neurological deficits. Internal Medicine: Result - Labs CBC & Chem 7: 03/10/16 04:56 03/10/16 04:56 Labs: Short CBC 03/10/16 Range/Units 04:56 WBC 24.2 H (4.3-11.1) K/mcL Hgb 11.0 L (11.5-15.4) g/dL Hct 33.9 L (35.3-44.9) % Plt Count 243 (140-400) K/mcL Neutrophils # 21.5 H (1.6-8.9) K/mcL BMP 03/10/16 04:56 Sodium 140 Potassium 3.2 L Chloride 99 Carbon Dioxide 32 H BUN 30 H Creatinine 0.85 Glucose 175 H Calcium 8.3 L Urine 03/10/16 Range/Units 09:20 Urine Color Yellow (Yellow) Urine Clarity Clear (Clear) Urine pH 7.0 (5.0-8.0) pH Units Ur Specific [place] 1.009 L (1.010-1.025) Urine Protein Negative (Neg-Trace) mg/dL Urine Glucose (UA) Normal (Normal) mg/dL - ABG Interpretation ABG results: ABG ABG pH 7.36 pH Units (7.32-7.45) 03/04/16 09:20 ABG pCO2 42 mmHg (35-45) 03/04/16 09:20 ABG pO2 148 mmHg (85-104) H 03/04/16 09:20 ABG O2 Saturation 99 % (95-98) H 03/04/16 09:20 PT/INR, D-dimer PT 14.3 Seconds (9.4-12.1) H 03/10/16 14:06 - Impressions Impressions Chest X-Ray 03/10/16 08:18 IMPRESSION: Decreased bilateral airspace disease. Persistent airspace disease is present within the right lateral upper lung and both lung bases. D/ / Hoda Yadav Cha, MD / Hoda Yadav Cha, MD Interpreting Provider: Hoda Yadav Cha, MD Consult Discharge Plan - Plan Referrals: Lex Biswas GUN STOCKER [Non-Partnered Physician] - 03/17/16 4:40 pm ()
[2016-03-10] MEDS ORDERED: Tirofiban 5 MG/100ML 5 MG/100 ML BAG IV ONE ×2 (15:42→16:01)
[2016-03-10] MEDS ORDERED: Tirofiban 12.5 MG/250ML 12.5 MG/250 ML BAG IVC SCH ×2 (16:00→16:15)
--- NOTE | 2016-03-10 16:08 | Pre-Sedation Evaluation ---
Pre-sedation evaluation - Pre-sedation checklist Date of procedure: 03/10/16 Procedure: heart cath Recent Vitals: Last Vital Signs Temp 98.3 F 03/10/16 10:46 Pulse 74 03/10/16 10:46 Resp 18 03/10/16 10:46 BP 111/68 03/10/16 10:46 Pulse Ox 96 03/10/16 10:46 H&P (including ROS) documented in medical record: Yes Previous reaction to sedatives/anesthetics: Yes; explain in comment Dietary Status: NPO after Midnight Dentition: dentures removed ASA Classification *see protocol: CLASS II-Mild systemic disease Plan of Care: Pt appropriate candidate for procedure/moderate/conscious sedation , Risks/benefits of procedure/sedation discussed w/ patient/family
--- NOTE | 2016-03-10 16:11 | Invasive Diagnostic Lab Proc ---
Name: Lisbet Ludwig Date of Study: 03/10/2016 Date: 1935 Ht: 64.2in Medical Record#: [id number] Age: 80 Wt: 177.25lb Gender: Female BSA: 1.86 Order #: [id number] BMI: 30.26 Physicians Procedure Physician: Chas Vee MD, FACC Referring MD: Referring MD: Staff Name Position Time In Romelia Mejia RN Broadband Engineer 02:40 PM Aniyah Mann RT Scrub 02:40 PM Rita Smith RN Monitor 02:40 PM Indications Indication Non-Stemi Procedures Performed Procedure L HRT ARTERY/VENTRICLE ANGIO PRQ CARD RUBEN STENT W/ANGIO 1 VSL PRQ CARD RUBEN STENT W/ANGIO 1 VSL Pre-Procedure Checklist Informed consent is complete signed and on chart. H\\T\\P is on chart. ID band is on and ID verified with patient. Patient NPO for procedure The procedure was described for the patient and questions were answered. Blood Pressure: 132/66 ECG is on chart. Rhythm: NSR Plan of Care Patient will tolerate the procedure without complications. Adequate level of comfort will be maintained. Hemodynamics will remain stable Patient will recover from procedure without complications. Respiratory function will be maintained. Cardiac rhythm will remain stable. Patient temperature will be maintained. Patient and/or family have verbalized understanding of the procedure. Patient Education Chief Complaint/Reason for Test: Cardiac Cath Developmental Category: Geriatric (65+ years) Developmentally Appropriate for Age: Yes Learning Barriers: None Education Needs: Procedure Education Method: Verbal Information Taught: Cardiac Cath Educational Evaluation: Able to repeat information Intravenous Access Time IV Size Location DC'd Fluid/Drip Rate Units RN 01:13 PM 18g 1 1/" Patent On Arrival Rt Arm 0.9NaCl 50 ml/hr Romelia Mejia RN 02:48 PM 22g 1" Patent On Arrival Rt Wrist Allergies iodine Vital Signs Time BP (mmHg) HR (bpm) O2 Sat. RR (bpm) LOC 02:47 PM / % 5 = Fully awake and oriented or at pre-proc level 02:47 PM / % 4 = Oriented but drowsy 03:02 PM / % 4 = Oriented but drowsy 03:17 PM / % 4 = Oriented but drowsy 03:32 PM / % 4 = Oriented but drowsy 02:51 PM 132 / 66 77 100 % 22 02:56 PM 125 / 74 84 96 % 18 03:01 PM 119 / 70 88 98 % 31 03:06 PM 122 / 76 91 97 % 24 03:11 PM 123 / 66 88 96 % 20 03:16 PM 126 / 64 92 97 % 23 03:21 PM 134 / 63 93 98 % 22 03:26 PM 129 / 72 92 99 % 22 03:31 PM 133 / 79 95 98 % 21 03:36 PM 137 / 74 94 98 % 22 03:41 PM 140 / 78 91 98 % 22 03:46 PM 131 / 67 96 96 % 21 03:51 PM 130 / 88 93 96 % 27 03:56 PM 120 / 67 97 96 % 14 Procedural Medications Time Medication Dose Units Method Given By 02:46 PM Oxygen 6 L/min nasal cannula Romelia Mejia RN 02:51 PM Solu-medrol 125 mg Intravenous Romelia Mejia RN 02:55 PM Versed 2 mg Intravenous Romelia Mejia RN 02:55 PM Fentanyl 25 mcg Intravenous Romelia Mejia RN 03:02 PM Lidocaine 2% 0.5 ml Subcutaneous Chas Vee MD, FACC 03:03 PM Nitroglycerin 200 mcg Verapamil 2.5 mg Intraarterial Chas Vee MD, FACC 03:19 PM Heparin 3000 units Intravenous Romelia Mejia RN 03:44 PM Aggrastat Bolus: 42 ml Intravenous Romelia Mejia RN 03:45 PM Aggrastat 5mg/100ml 15 ml Intravenous Romelia Mejia RN 03:46 PM Nitroglycerin 200 mcg Intracoronary Chas Vee MD 03:54 PM Plavix 600 mg Orally Romelia Mejia RN ASA Classification: CLASS II- Mild systemic disease (i.e. well-controlled diabetes, hypertension, asthma, cigarette smoking) Paula Score Preprocedure Postprocedure Activity 2- Moves 4 extremities sustained head lift Activity 2- Moves 4 extremities sustained head lift Circulation 2- SBP +/= 20 points of pre-anesthetic level Circulation 2- SBP +/= 20 points of pre-anesthetic level Consciousness 2- Awake and alert oriented x 3 Consciousness 2- Awake and alert oriented x 3 O2 Saturation 1- Needs O2 inhalation to maintain O2 saturation of 90% O2 Saturation 1- Needs O2 inhalation to maintain O2 saturation of 90% Respiratory 2- Able to deep breathe and cough well Respiratory 2- Able to deep breathe and cough well Total Score 9 Total Score 9 Contrast Agent: Isovue Diagnostic Contrast: 164 ml Total Contrast: 164 ml Fluoro Dose: 713 mGy Activated Clotting Time Time Seconds to Clot 03:18 PM 154 03:37 PM 231 Procedure Log Time Note Enter By 02:39 PM CathStat 02:39 PM Case Start 02:40 PM Pt arrived to slab polisher 1 at 14:40 [email or web address] 02:40 PM Romelia Mejia RN Position: Broadband Engineer Time in: 14:40 [email or web address] 02:40 PM Aniyah Mann Position: Scrub Time in: 14:40 [email or web address] 02:40 PM Rita Smith RN Position: Monitor Time in: 14:40 [email or web address] 02:40 PM Patient charges- Angio tray pack, Navilyst 3mm J, Pulse Oximetry and ACIST tubing and transducer [email or web address] 02:40 PM Case Delayed No [email or web address] 02:45 PM Physician arrived 14:45 [email or web address] 02:45 PM ASA Class CLASS II- Mild systemic disease (i.e. well-controlled diabetes, hypertension, asthma, cigarette smoking) [email or web address] 02:45 PM Meet and greet completed [email or web address] 02:45 PM Sign in performed according to hospital policy. [email or web address] 02:45 PM Procedure start 14:45 [email or web address] 02:46 PM Hair removed from procedure site in procedure lab using clippers. Right wrist prepped with Chloraprep by Rita Smith RN then patient draped. Skin intact. [email or web address] 02:46 PM Hair removed from procedure site in procedure lab using clippers. Right groin prepped with Chloraprep by Rita Smith RN then patient draped. Skin intact. [email or web address] 02:46 PM Time: 14:46 Oxygen on at 6 L/min per nasal cannula by Romelia Mejia RN [email or web address] 02:47 PM Time: 14:47 Patient comfortable and pain free: Yes [email or web address] 02:47 PM Time: 14:47LOC: 5 = Fully awake and oriented or at pre-proc level [email or web address] 02:47 PM Clinical Presentation: Non-STEMI [email or web address] 02:50 PM Recorded ECG: HR=81 Condition=Condition 1 02:51 PM Vitals capture started with the following parameters, Patient=Adult, Interval=5 min, Initial Netbqxcl=739 mmHg, Deflation Rate=5 mmHg, Cuff placed on Left Leg 02:51 PM Time: 14:51 Solu-medrol 125 mg Intravenous Given by Romelia Mejia RN [email or web address] 02:51 PM HR=77 bpm, PDWI=768/66 mmhg, HsI6=622.0 %, Resp=22 B/min, Comment=SR 02:55 PM Time: 14:55 Versed 2 mg Intravenous Given by Romelia Mejia RN [email or web address] 02:55 PM Time: 14:55 Fentanyl 25 mcg Intravenous Given by Romelia Mejia RN [email or web address] 02:56 PM HR=84 bpm, GENC=014/74 mmhg, SpO2=96.0 %, Resp=18 B/min, Comment=SR 03:00 PM Pressure channel 1 zeroed. 03:01 PM HR=88 bpm, LPUF=187/70 mmhg, SpO2=98.0 %, Resp=31 B/min, Comment=SR 03:02 PM Time: 14:47LOC: 4 = Oriented but drowsy [email or web address] 03:02 PM Time: 14:47 Patient comfortable and pain free: Yes [email or web address] 03:02 PM Time out performed according to hospital policy [email or web address] 03:03 PM Time: 15:02 0.5 ml Lidocaine 2% to right radial Subcutaneous Given by Chas Vee MD, [facility] [email or web address] 03:03 PM Access obtained by percutaneous puncture. 5Fr 10cm Terumo Glidesheath sheath placed in right Radial artery. [id number] [email or web address] 03:04 PM Time: 15:03 Patient given 200 mcg Nitroglycerin, and 2.5 mg Verapamil Intraarterial by Chas Vee MD, [facility] [email or web address] 03:04 PM 0.035 260cm Navilyst 3mmJ wire [id number] [email or web address] 03:04 PM 5Fr TIG catheter inserted over the wire [facility] [email or web address] 03:04 PM Catheter removed [email or web address] 03:05 PM .035 Wholey 150cm guide wire across target lesion- successful. reused? No [email or web address] 03:06 PM Wire removed [email or web address] 03:06 PM HR=91 bpm, BFAJ=330/76 mmhg, SpO2=97.0 %, Resp=24 B/min, Comment=SR 03:06 PM LCA angiography performed in multiple views. [email or web address] 03:07 PM Recorded Pressure: Ao, ZO=597, Condition=Condition 1 (Aorta) Ao 86/61/73 03:08 PM RCA angiography performed in multiple views. [email or web address] 03:08 PM Recorded Pressure: Ao, HR=88, Condition=Condition 1 (Aorta) Ao 83/59/70 03:08 PM Coronary Dominance: right [email or web address] 03:09 PM Catheter removed [email or web address] 03:09 PM 5Fr FL 3.5 catheter inserted over the wire [id number] [email or web address] 03:11 PM HR=88 bpm, MGLO=491/66 mmhg, SpO2=96.0 %, Resp=20 B/min, Comment=SR 03:12 PM Lesion found in Proximal LAD. Pre Stenosis: 70 Pre LUCIANA Flow: [email or web address] 03:12 PM Catheter removed [email or web address] 03:12 PM 5Fr Pigtail catheter inserted over the wire [facility] [email or web address] 03:13 PM Catheter selectively placed in left ventricle [email or web address] 03:13 PM Pressure channel 1 zero failed. 03:14 PM Pressure channel 1 zero failed. 03:14 PM Pressure channel 1 zeroed. 03:14 PM Recorded Pressure: LV, HR=91, Condition=Condition 1 (Left Ventricle) LV 119/7/15 03:14 PM Bolus angiogram of left Ventricle complete: 10 ml/sec for a total of 20 mls [email or web address] 03:14 PM Recorded Pressure: LV, Ao, HR=90, Condition=Condition 1 (Left Ventricle) LV 121/7/16, (Aorta) Ao 119/62/86 03:15 PM Catheter removed [email or web address] 03:15 PM Proximal Left Anterior Descending Coronary Artery with 70% stenosis. If graft is supplying this territory, % stenosis. [email or web address] 03:16 PM PCI Status Urgent [email or web address] 03:16 PM PCI Indication: PCI for high risk Non-STEMI or unstable angina [email or web address] 03:16 PM 5Fr RBR 3.5 Convey guide catheter was used to cannulate the PCI vessel successfully. reused? No [email or web address] 03:16 PM HR=92 bpm, QIDB=970/64 mmhg, SpO2=97.0 %, Resp=23 B/min, Comment=SR 03:16 PM .014 PT Graphix 182cm guide wire across target lesion- successful. reused? No [email or web address] 03:17 PM Time: 15:02 Patient comfortable and pain free: Yes [email or web address] 03:17 PM Time: 15:02LOC: 4 = Oriented but drowsy [email or web address] 03:17 PM Inflation device was opened. [email or web address] 03:18 PM At 15:18 the ACT was 154 seconds. [email or web address] 03:19 PM Time: 15:19 Heparin 3000 units Intravenous Given by Romelia Mejia RN Nguyen pump [email or web address] 03:20 PM Guide catheter removed intact. [email or web address] 03:21 PM 5Fr JR 4 Convey guide catheter was used to cannulate the PCI vessel successfully. reused? No [email or web address] 03:21 PM HR=93 bpm, SADL=625/63 mmhg, SpO2=98.0 %, Resp=22 B/min, Comment=SR 03:22 PM 2.0 mm x 8 mm Emerge Monorail balloon across target lesion- successful. reused? No [email or web address] 03:24 PM Balloon inflated @ 14 eleonora for 9 seconds [email or web address] 03:25 PM Balloon catheter removed intact. [email or web address] 03:25 PM 2.25mm x 12mm Synergy bioabsorbable stent across target lesion- successful Lot #[id number] [email or web address] 03:26 PM HR=92 bpm, CTWI=213/72 mmhg, SpO2=99.0 %, Resp=22 B/min, Comment=SR 03:27 PM Balloon inflated @ 12 eleonora for 16 seconds [email or web address] 03:29 PM 2.25 mm x 8mm NC Emerge balloon across target lesion- successful. reused? No [email or web address] 03:30 PM Recorded Pressure: Ao, HR=95, Condition=Condition 1 (Aorta) Ao 105/88/97 03:31 PM Balloon inflated @ 20 eleonora for 17 seconds [email or web address] 03:31 PM HR=95 bpm, MXXG=736/79 mmhg, SpO2=98.0 %, Resp=21 B/min, Comment=SR 03:32 PM Balloon catheter removed intact. [email or web address] 03:32 PM Time: 15:17LOC: 4 = Oriented but drowsy [email or web address] 03:32 PM Time: 15:17 Patient comfortable and pain free: Yes [email or web address] 03:33 PM Guide catheter removed intact. [email or web address] 03:34 PM 5Fr RBL 3.5 Convey guide catheter was used to cannulate the PCI vessel successfully. reused? No [email or web address] 03:36 PM wire reinserted [email or web address] 03:36 PM HR=94 bpm, PXTV=579/74 mmhg, SpO2=98.0 %, Resp=22 B/min, Comment=SR 03:37 PM At 15:37 the ACT was 231 seconds. [email or web address] 03:41 PM HR=91 bpm, ZMVH=669/78 mmhg, SpO2=98.0 %, Resp=22 B/min, Comment=SR 03:43 PM 2.5mm x 12mm Synergy bioabsorbable stent across target lesion- successful Lot #[id number] [email or web address] 03:44 PM Time: 15:44 Aggrastat Bolus: 42 ml Intravenous Given by Romelia Mejia RN Nguyen pump [email or web address] 03:45 PM Stent deployed @ 16 eleonora for 15 seconds [email or web address] 03:45 PM Time: 15:45 Aggrastat 5mg/100ml 15 ml Intravenous Given by Romelia Mejia RN Nguyen pump [email or web address] 03:46 PM Time: 15:46 Nitroglycerin 200 mcg Intracoronary Given by Chas Vee MD [email or web address] 03:46 PM Recorded Pressure: Ao, HR=94, Condition=Condition 1 (Aorta) Ao 101/86/93 03:46 PM HR=96 bpm, UOPC=859/67 mmhg, SpO2=96.0 %, Resp=21 B/min, Comment=SR 03:47 PM Time: 15:32 Patient comfortable and pain free: Yes [email or web address] 03:47 PM Time: 15:32LOC: 4 = Oriented but drowsy [email or web address] 03:48 PM Stent delivery system removed intact. [email or web address] 03:48 PM 3.0 mm x 8mm NC Emerge balloon across target lesion- successful. reused? No [email or web address] 03:50 PM Balloon inflated @ 16 eleonora for 13 seconds [email or web address] 03:50 PM Balloon inflated @ 12 eleonora for 8 seconds [email or web address] 03:51 PM Balloon catheter removed intact. [email or web address] 03:51 PM Guide wire removed intact. [email or web address] 03:51 PM HR=93 bpm, BXEZ=760/88 mmhg, SpO2=96.0 %, Resp=27 B/min, Comment=SR 03:51 PM Guide catheter removed intact. [email or web address] 03:52 PM Procedure completed at 15:52 [email or web address] 03:53 PM Sign out completed: Radiation Dose 712.94 mGy Fluoro Time: 12.2 Isovue 370 - 200ml contrast 164 ml given by Chas Vee MD, [facility]. Complications: NoneConfirmed administered medications: Yes [email or web address] 03:53 PM Lesion found in Distal RCA. Pre Stenosis: 95 Pre LUCIANA Flow: [email or web address] 03:53 PM Right Coronary, Right Posterior Descending Arteries with Right Posterolateral and Acute Marginal branches with 95 % stenosis. If graft is supplying this area, % stenosis [email or web address] 03:53 PM Isovue 370 - 200ml,1 Bottle(s) used. [email or web address] 03:54 PM Time: 15:54 Plavix 600 mg Orally Given by Romelia Mejia RN [email or web address] 03:54 PM Arterial sheath pulled, Vasc Band closure device used and was Successful S/N. [email or web address] 03:54 PM 12 ml air in Vasc Band. [email or web address] 03:54 PM Post ECG NSR [email or web address] 03:55 PM Post Blood Pressure 130/88 [email or web address] 03:55 PM 15:55 Post Pulses Rt Radial 1+ [email or web address] 03:55 PM Information taught Cardiac Cath, PCI, and Vasc Band [email or web address] 03:55 PM Education needs Procedure, Plan of Care, and Responsibilities of Patient in Care [email or web address] 03:55 PM Learning barriers :None [email or web address] 03:55 PM Education Methods Verbal [email or web address] 03:55 PM Education evaluation Able to repeat information [email or web address] 03:55 PM Site status No bleeding/hematoma - Rt Wrist as reported by Aniyah Mann RT at 15:55 [email or web address] 03:55 PM Plavix, Effient or Brilinta given Yes [email or web address] 03:55 PM Delay to floor No [email or web address] 03:55 PM no family present [email or web address] 03:56 PM HR=97 bpm, HCNH=150/67 mmhg, SpO2=96 %, Resp=14 B/min 04:03 PM Report given to Ileana WALL Pt taken to Room #23. 16:03 [email or web address] 04:03 PM Patient out of room: 16:03 [email or web address] Complications Complication None Hemodynamics Pressures Site Systolic/A Wave Diastolic/V Wave Mean AO 86 61 73 AO 83 59 70 LV 119 7 15 LV 121 7 16 AO 119 62 86 AO 105 88 97 AO 101 86 93 Post Procedure Information Blood Pressure: 130/88 mmHg Rhythm: NSR Post procedural instructions were not given Closure Device Time Device Success/Fail 03/10/2016 3:57:00 PM Mechanical Compression Successful Site Checks Time Location Status Staff Sheath In? Note 03:55 PM Rt Wrist No bleeding/hematoma Aniyah Mann RT Pulses Time Site Pre-Procedure Post-Procedure Note 03/10/2016 2:49:00 PM Bilateral DP \\T\\ PT 1+ 03/10/2016 2:49:00 PM Bilateral radial 2+ 3:55:00 PM Rt Radial 1+ Updated by Rita Smith RN on 03/10/2016 4:05:34 PM electronically signed on 03/10/2016 4:06:12 PM with status of Final
[2016-03-10] MEDS: Insulin DETEMIR 100 UNIT/ML X5UNITS SQ SCH (22:06)
[2016-03-11] MEDS: Levothyroxine 25 MCG TABLET PO SCH (06:05)
[2016-03-11] MEDS: Furosemide 20 MG/2 ML VIAL IVP SCH ×2 (07:55→21:02)
[2016-03-11] MEDS: Aspirin Enteric Coated 81 MG Tablet PO SCH (07:55)
[2016-03-11] MEDS: predniSONE 20 MG TABLET PO SCH (07:55)
[2016-03-11] MEDS: Nicotine 14 MG PATCH.TD24 TD SCH (07:55)
[2016-03-11] MEDS: Metoprolol XL (24 HR) Succ 50 MG TAB.ER.24H PO SCH (07:55)
[2016-03-11] MEDS: Insulin LISPRO 300 UNITS/3 ML VIAL SQ SCH ×4 (07:56→21:02)
[2016-03-11] MEDS: Budesonide/Formoterol 160/4.5 MDI IH SCH ×2 (08:19→19:58)
[2016-03-11] MEDS: Tiotropium 18 MCG inhalation IH SCH (08:20)
[2016-03-11 08:22] LABS: Basophils % 0.1 %; Lymphocytes % 2.5 %; Monocytes % 2.8 %; Red Blood Count 3.83 M/mcL (3.82-4.97)
[2016-03-11 08:24] LABS: Hematocrit 35.5 % (35.3-44.9); Hemoglobin 11.4 g/dL (11.5-15.4); Mean Corpuscular HGB Conc 32.1 g/dL (31.6-35.5); Mean Corpuscular Hemoglobin 29.8 pg (28.0-33.3); Mean Corpuscular Volume 92.7 fL (83.0-100.0); Mean Platelet Volume 11.5 fL (9.4-12.4); Monocytes # 0.7 K/mcL (0.0-1.3); Platelet Count 292 K/mcL (140-400); Red Cell Distribution Width 14.3 % (11.5-14.5); Segmented Neutrophils % 93.6 %
[2016-03-11 08:26] LABS: Lymphocytes # 0.7 K/mcL (0.6-4.6); Neutrophils # 24.4 K/mcL (1.6-8.9)
[2016-03-11 08:35] LABS: BUN/Creatinine Ratio 25 (6-26); Blood Urea Nitrogen 26 mg/dL (7-20); Calcium 8.6 mg/dL (8.6-10.8); Carbon Dioxide 30 mEq/L (19-29); Chloride 102 mEq/L (98-109); Glucose 303 mg/dL (70-99); Osmolality,Calculated 306 (280-300); Potassium 3.6 mEq/L (3.5-4.5); Sodium 140 mEq/L (136-145); eGFR For African Americans > 60 (> 60); eGFR For Non-African Americans 50 (> 60)
[2016-03-11 08:47] LABS: Large Platelets Present (Not Present); Platelet Estimate Normal (Normal)
[2016-03-11 08:48] LABS: Basophilic Stippling 1+ (Not Present); Polychromasia 1+ (Not Present)
--- NOTE | 2016-03-11 09:36 | Cardiology Progress Note ---
Date of Encounter: 03/11/16 Time of Encounter: 09:34 Assessment and Plan (1) NSTEMI (non-ST elevated myocardial infarction) Current Visit: Yes Status: Resolved Troponin 0.08, 0.81, 0.20. TTE shows new low EF at 35-40%, RWMA, mild diastolic dysfunction, mild MR. [facility] yesterday--pt received PCI/RUBEN to LAD and RCA. Continue DAPT (asa and plavix) x 1 year uninterrupted, statin, and bb. Right femoral access site healing well. No bleeding, hematoma or ecchymosis noted. Follow-up in 1 week as outpt. Cardiology signing off. Reconsult PRN. (2) Acute systolic (congestive) heart failure Current Visit: Yes Status: Acute EF 35-40% on TTE. Ischemic. S/P PCI to prox LAD and RCA. On Lasix 20mg IV BID. Recommend transition to maintenance PO dosing at discharge. Continue BB, ARB. (3) CAD (coronary artery disease) Current Visit: Yes Status: Acute S/P PCI to proximal LAD and RCA. Continue DAPT (ASA and Plavix) x 1 year uninterrupted, BB, Statin, ARB. Qualifiers: Coronary Disease-Associated Artery/Lesion type: [place] artery [place] vs. transplanted heart: [place] heart Associated angina: without angina Qualified Code(s): I25.10 - Atherosclerotic heart disease of [place] coronary artery without angina pectoris Discussion w patient/family: The assessment and plan as outlined above was discussed with the patient and/or family members who expressed understanding and agreement. All questions were answered. Thank you for involving us in the care of your patient. Please call with any questions. I will discuss all the above with Dr. Veras and make changes as necessary. Subjective Principal diagnosis: Pneumonia Interval history: [facility] yesterday--pt received PCI to prox LAD and RCA. Denies acute complaints this AM. Breathing is improved. Objective Vital Signs, Last 4 Hours Temp Pulse Resp BP Pulse Ox 03/11/16 08:20 20 94 L 03/11/16 08:05 98 03/11/16 06:42 98.0 F 88 18 137/83 98 Vital Signs Temp Pulse Resp BP Pulse Ox 03/11/16 08:20 20 94 L 03/11/16 08:05 98 03/11/16 06:42 98.0 F 88 18 137/83 98 03/11/16 04:00 97.6 F 89 17 120/66 95 03/11/16 00:00 98.0 F 91 16 99/65 95 03/10/16 21:14 16 98 03/10/16 20:00 97.3 F L 98 16 105/68 97 03/10/16 18:27 104 18 104/65 98 03/10/16 18:01 99 18 115/74 97 03/10/16 17:37 90 18 116/75 98 03/10/16 17:16 86 18 122/79 98 03/10/16 16:42 88 18 114/79 96 03/10/16 16:32 94 18 115/77 94 L 03/10/16 10:46 98.3 F 74 18 111/68 96 Intake and Output 03/10/16 03/11/16 03/11/16 23:59 07:59 15:59 Intake Total 360 / 360 120 / 120 Output Total 875 / 875 0 / 0 Balance 360 / 360 -875 / -875 120 / 120 Intake: Oral 360 / 360 120 / 120 Output: Urine 475 / 475 0 / 0 Urethral (Brooks) 475 / 475 Catheter 400 / 400 Other: Meal Dinner Percent of Meal Consumed 50% Weight 80.3 kg Blood Glucose* 333 326 Patient Weight 03/11/16 23:59 Weight 80.3 kg General: Conversant, No Apparent Distress HEENT: Atraumatic, Normocephaly, Mucus Membranes Moist Neck: No JVD, Normal carotid pulses Cardiac: Reg Rate and Rhythm, Normal S1 and S2, No Murmur Lungs: Other (diminished) Neuro: Alert and responsive, No focal deficits noted Abdomen: Soft, Non-Tender Skin: No rashes noted on visualized skin Musculoskeletal: No Chest Wall Tenderness Extremities: No Clubbing, No Cyanosis, No Edema, Normal Pulses Results 03/11/16 08:16 03/11/16 08:16 Lab Results 03/10/16 03/10/16 03/11/16 13:20 14:06 08:16 WBC 26.1 H Hgb 11.4 L Hct 35.5 Plt Count 292 INR 1.4 1.3 APTT 164.1 H* D 64.6 H D Sodium Potassium Chloride Carbon Dioxide BUN Creatinine Glucose Calcium 03/11/16 08:16 WBC Hgb Hct Plt Count INR APTT Sodium 140 Potassium 3.6 Chloride 102 Carbon Dioxide 30 H BUN 26 H Creatinine 1.06 Glucose 303 H Calcium 8.6 - Imaging and Cardiology Echo: report reviewed Cardiac cath: report reviewed (Stents to proximal LAD and RCA) - EKG Interpretation EKG results cardiology: other (12 hour tele AVG HR 80, SR, no significant pauses or arrhythmias) Consult Discharge Plan - Plan Additional Instructions: RISK FACTORS: STOP SMOKING: If you smoke, STOP. Smoking or tobacco use significantly increases your risk of heart disease because nicotine causes the arteries to narrow or constrict. It also causes fats to stick to the artery. Your chances of having a heart attack are greatly increased if you continue to smoke. For more information, call the education line for smoking cessation 1-549-JWQBFLQ EAT A LOW FAT/CHOLESTEROL/SODIUM DIET: This diet may help reduce your chances of having a heart attack. LIFTING: Avoid lifting anything more than 10 pounds for 5-7 days Prior to straining, laughing, sneezing and/or coughing, apply manual pressure directly over insertion site. ACTIVITY: You may walk or climb stairs as tolerated You can resume sexual activity as tolerated In general, you are encouraged to engage in a minimum of 30 minutes or more of moderate intensity physical activity, such as brisk walking, daily or at least 3 -4 times weekly BATHING Do not submerge the site into water (bath tub, hot tub, swimming pool) for 1 week. This can be a source for infection into the blood stream. You may shower after 24 hours SITE CARE: After 24 hours, you may remove the dressing and leave the site open to air. Keep the site clean and dry. Clean gently and pat dry. You can expect bruising and tenderness that gradually resolve within a week or two. Return to work as instructed per your physician Resume driving as instructed per physician Keep all scheduled follow up appointments Resume medications as instructed IMPORTANT: If prescribed a Platelet Aggregation Inhibitor such as, Plavix, Brilinta or Effient: Duration of therapy is minimum one year These medications are often used in combination with Aspirin in prevention of future heart attacks Never discontinue unless consult with your Access Control Officer STROKE (CVA) Risk factors for a stroke are: Age, cigarette smoking, diabetes, excessive alcohol consumption, family history, high blood pressure, overweight, physical inactivity, prior stroke, heart attack, diagnosis of carotid artery stenosis or other artery disease. Warning signs: Sudden numbness or weakness of the face, arm or leg; especially on one side of the body, sudden confusion, trouble speaking or understanding, sudden trouble seeing in one or both eyes, sudden trouble walking, dizziness, loss of balance or coordination, sudden severe headache with no cause. Call 911 or go to the Emergency Room. CONGESTIVE HEART FAILURE: If you have been diagnosed with Congestive Heart Failure (CHF) and your symptoms return, make an appointment with your physician Weigh yourself daily. Notify your physician if you have a weight gain of two or more pounds in one day or five or more pounds in one week. If you experience any difficulty breathing, please call 911 BLEEDING: Although the risk of bleeding is minimal, it can happen. If you have any bleeding from the site, apply firm pressure above the puncture site for 10-15 minutes. If the bleeding does not stop, continue manual pressure and call 911 Contact your physician if: You develop a fever greater than 101 degrees Fahrenheit Your site becomes reddened or has any drainage You have an increase in pain or burning at the site or if a large knot forms at the site. If you experience chest pain, shortness of breath, dizziness, or extreme tiredness, stop the activity and rest. Please notify your physicians office if you experience any of these symptoms and they are not relieved by rest please call 911! Referrals: Lex Biswas CNP [Non-Partnered Physician] - 03/17/16 4:40 pm ()
--- NOTE | 2016-03-11 09:42 | Internal Med Progress Note ---
Date of Encounter: 03/11/16 Time of Encounter: 06:00 - Assessment and plan (1) Pneumonia Current Visit: Yes Status: Acute Assessment and plan: pt has hx of coronavirus, but concern of developing bacterial pneumonia, since WBC increasing, check blood cultures, lactic acid level increase antibiotics regimen to cover gram negative Qualifiers: Aspiration pneumonia type: unspecified Lung location: unspecified part of lung Qualified Code(s): J69.0 - Pneumonitis due to inhalation of food and vomit (2) Acute systolic (congestive) heart failure Current Visit: Yes Status: Acute Assessment and plan: with systolic disnfunction EF 35% decompensated start aldactone monitor lytes (3) NSTEMI (non-ST elevated myocardial infarction) Current Visit: Yes Status: Resolved Assessment and plan: pt had recent PVCI ot proximalLAD and RCA, , on BB /MOSES/ statins/ aspirin/ plavix cardiology following - Time Spent With Patient 25 - 35 minutes - Subjective Interval history: Pt denies chest pain , but c/o SOB on exertion - Constitutional Vitals: Temp Pulse Resp BP Pulse Ox 98.0 F 88 20 137/83 94 L 03/11/16 06:42 03/11/16 06:42 03/11/16 08:20 03/11/16 06:42 03/11/16 08:20 General appearance: Present: A&O X 2, A&O X 3 - Respiratory Respiratory exam: Present: decreased breath sounds Additional comments: scattered rales at the bases - Cardiovascular Cardiovascular exam: Present: RRR, +S1, +S2 Additional comments: GLORIA 2/6 in RUSB - GI/Abdominal GI/Abdominal exam: Present: soft Additional comments: normal BS , no rebound no guardening - Extremities Exam Additional comments: trace pedal edema Internal Medicine: Result - Labs CBC & Chem 7: 03/11/16 08:16 03/11/16 08:16 Labs: Short CBC 03/11/16 Range/Units 08:16 WBC 26.1 H (4.3-11.1) K/mcL Hgb 11.4 L (11.5-15.4) g/dL Hct 35.5 (35.3-44.9) % Plt Count 292 (140-400) K/mcL Neutrophils # 24.4 H (1.6-8.9) K/mcL BMP 03/11/16 08:16 Sodium 140 Potassium 3.6 Chloride 102 Carbon Dioxide 30 H BUN 26 H Creatinine 1.06 Glucose 303 H Calcium 8.6 Urine 03/10/16 Range/Units 09:20 Urine Color Yellow (Yellow) Urine Clarity Clear (Clear) Urine pH 7.0 (5.0-8.0) pH Units Ur Specific [place] 1.009 L (1.010-1.025) Urine Protein Negative (Neg-Trace) mg/dL Urine Glucose (UA) Normal (Normal) mg/dL - ABG Interpretation ABG results: ABG ABG pH 7.36 pH Units (7.32-7.45) 03/04/16 09:20 ABG pCO2 42 mmHg (35-45) 03/04/16 09:20 ABG pO2 148 mmHg (85-104) H 03/04/16 09:20 ABG O2 Saturation 99 % (95-98) H 03/04/16 09:20 PT/INR, D-dimer PT 14.3 Seconds (9.4-12.1) H 03/10/16 14:06 - Impressions Impressions Chest X-Ray 03/10/16 08:18 IMPRESSION: Decreased bilateral airspace disease. Persistent airspace disease is present within the right lateral upper lung and both lung bases. D/ / Hoda Yadav Cha, MD / Hoda Yadav Cha, MD Interpreting Provider: Hoda Yadav Cha, MD Consult Discharge Plan - Plan Referrals: Lex Biswas GLASS ETCHER HELPER [Non-Partnered Physician] - 03/17/16 4:40 pm ()
[2016-03-11] MEDS: Acetaminophen 325 MG TABLET PO PRN (10:31)
[2016-03-11] MEDS: Levofloxacin 250 MG/50 ML 250 MG/50 ML BAG IVPB SCH (11:47)
[2016-03-11] MEDS ORDERED: Sennosides/Docusate Sodium TABLET PO SCH (13:00)
[2016-03-11] MEDS ORDERED: Vancomycin 1,000 MG in D5% in Water 250 ML IVPB SCH (14:00)
[2016-03-11] MEDS: Vancomycin 1,250 MG in D5% in Water 250 ML IVPB SCH (15:51)
[2016-03-11] MEDS: *HR* Heparin 5,000 UNIT/ML VIAL SQ SCH (17:06)
[2016-03-11] MEDS: Insulin DETEMIR 100 UNIT/ML X5UNITS SQ SCH (21:02)
[2016-03-11] MEDS: Spironolactone 25 MG TABLET PO SCH (21:02)
[2016-03-12 03:55] LABS: Hematocrit 31.5 % (35.3-44.9); Immature Platelets 9.1 % (1.1-6.1); Mean Corpuscular HGB Conc 31.7 g/dL (31.6-35.5); Mean Corpuscular Hemoglobin 29.6 pg (28.0-33.3); Mean Corpuscular Volume 93.2 fL (83.0-100.0); Mean Platelet Volume 11.5 fL (9.4-12.4); Red Blood Count 3.38 M/mcL (3.82-4.97); Red Cell Distribution Width 14.4 % (11.5-14.5)
[2016-03-12] MEDS: Levothyroxine 25 MCG TABLET PO SCH (06:07)
[2016-03-12] MEDS: *HR* Heparin 5,000 UNIT/ML VIAL SQ SCH ×2 (06:07→18:12)
[2016-03-12 07:13] LABS: Alanine Aminotransferase 27 Units/L (0-55); Albumin 2.2 g/dL (3.5-5.0); Albumin/Globulin Ratio 0.7 (1.1-2.2); Alkaline Phosphatase 76 Units/L (38-126); Aspartate Amino Transferase 18 Units/L (5-34); BUN/Creatinine Ratio 25 (6-26); Bilirubin,Total 0.5 mg/dL (0.2-1.2); Blood Urea Nitrogen 25 mg/dL (7-20); Calcium 8.8 mg/dL (8.6-10.8); Carbon Dioxide 35 mEq/L (19-29); Chloride 102 mEq/L (98-109); Globulin 3.3 g/dL (2.4-3.5); Glucose 124 mg/dL (70-99); Osmolality,Calculated 296 (280-300); Potassium 3.2 mEq/L (3.5-4.5); Sodium 140 mEq/L (136-145); Total Protein 5.5 g/dL (6.0-8.3); eGFR For African Americans > 60 (> 60); eGFR For Non-African Americans 53 (> 60)
[2016-03-12] MEDS: Budesonide/Formoterol 160/4.5 MDI IH SCH (10:12)
[2016-03-12] MEDS: Tiotropium 18 MCG inhalation IH SCH (10:14)
[2016-03-12] MEDS: Aspirin Enteric Coated 81 MG Tablet PO SCH (12:04)
[2016-03-12] MEDS: predniSONE 20 MG TABLET PO SCH (12:04)
[2016-03-12] MEDS: Metoprolol XL (24 HR) Succ 50 MG TAB.ER.24H PO SCH (12:05)
[2016-03-12] MEDS: Spironolactone 25 MG TABLET PO SCH (12:05)
[2016-03-12] MEDS: Furosemide 20 MG/2 ML VIAL IVP SCH (12:05)
[2016-03-12] MEDS: Nicotine 14 MG PATCH.TD24 TD SCH (12:06)
[2016-03-12] MEDS: Insulin LISPRO 300 UNITS/3 ML VIAL SQ SCH ×4 (12:10→20:41)
[2016-03-12] MEDS ORDERED: Potassium Effervescent 25 MEQ TABLET.EFF PO ONE (13:03)
--- NOTE | 2016-03-12 13:04 | Internal Med Progress Note ---
Date of Encounter: 03/12/16 Time of Encounter: 21:00 - Assessment and plan (1) Pneumonia Current Visit: Yes Status: Acute Assessment and plan: IMPROVING, INCENTIVE SPIROMETTRY Qualifiers: Aspiration pneumonia type: unspecified Lung location: unspecified part of lung Qualified Code(s): J69.0 - Pneumonitis due to inhalation of food and vomit (2) Acute systolic (congestive) heart failure Current Visit: Yes Status: Chronic Assessment and plan: WITH SYSTOLIC DISFUNCTION EF 35-40% ON BB MOSES ALDACTONE ,BETTER COMPENSATED (3) NSTEMI (non-ST elevated myocardial infarction) Current Visit: Yes Status: Resolved (4) CAD (coronary artery disease) Current Visit: Yes Status: Acute Assessment and plan: RECENT non stemi PT HAD PCI.RUBEN TO LAD AND RCA STABLE TO BE ON PLAVIX FOR AT LEST ONE YEAR Qualifiers: Coronary Disease-Associated Artery/Lesion type: [place] artery [place] vs. transplanted heart: [place] heart Associated angina: without angina Qualified Code(s): I25.10 - Atherosclerotic heart disease of [place] coronary artery without angina pectoris (5) Debility, unspecified Current Visit: Yes Status: Chronic Assessment and plan: TO GO TO [place] FOR REHAB - Subjective Interval history: feels better SOB much improved no fever overnight - Constitutional Vitals: Temp Pulse Resp BP Pulse Ox 97.6 F 74 16 100/64 90 L 03/12/16 11:15 03/12/16 11:15 03/12/16 11:15 03/12/16 11:15 03/12/16 11:15 General appearance: Present: A&O X 2, A&O X 3 - Respiratory Respiratory exam: Present: decreased breath sounds Additional comments: RALES IN BOTH LUNG BASES - Cardiovascular Cardiovascular exam: Present: RRR, +S1, +S2, +S3 Additional comments: lino 3/6 IN rusb - GI/Abdominal GI/Abdominal exam: Present: normal bowel sounds, soft - Extremities Exam Extremities exam: Present: warm, radial pulses palpable and symetrical Internal Medicine: Result - Labs CBC & Chem 7: 03/12/16 03:43 03/12/16 06:54 Labs: Short CBC 03/12/16 Range/Units 03:43 WBC 23.9 H (4.3-11.1) K/mcL Hgb 10.0 L (11.5-15.4) g/dL Hct 31.5 L (35.3-44.9) % Plt Count 318 (140-400) K/mcL BMP 03/12/16 06:54 Sodium 140 Potassium 3.2 L Chloride 102 Carbon Dioxide 35 H BUN 25 H Creatinine 1.01 Glucose 124 H Calcium 8.8 Liver Function 03/12/16 Range/Units 06:54 Total Bilirubin 0.5 (0.2-1.2) mg/dL AST 18 (5-34) Units/L ALT 27 (0-55) Units/L Alkaline Phosphatase 76 (38-126) Units/L Albumin 2.2 L (3.5-5.0) g/dL - ABG Interpretation ABG results: ABG ABG pH 7.36 pH Units (7.32-7.45) 03/04/16 09:20 ABG pCO2 42 mmHg (35-45) 03/04/16 09:20 ABG pO2 148 mmHg (85-104) H 03/04/16 09:20 ABG O2 Saturation 99 % (95-98) H 03/04/16 09:20 PT/INR, D-dimer PT 14.3 Seconds (9.4-12.1) H 03/10/16 14:06 - Impressions Impressions Chest X-Ray 03/12/16 09:33 IMPRESSION: New right lower lobe atelectasis. Overall improved bibasilar airspace disease. D/ / Hoda Yadav Cha, MD / Hoda Yadav Cha, MD Interpreting Provider: Hoda Yadav Cha, MD Consult Discharge Plan - Plan Additional Instructions: RISK FACTORS: STOP SMOKING: If you smoke, STOP. Smoking or tobacco use significantly increases your risk of heart disease because nicotine causes the arteries to narrow or constrict. It also causes fats to stick to the artery. Your chances of having a heart attack are greatly increased if you continue to smoke. For more information, call the education line for smoking cessation 2-072-EKMGOAY EAT A LOW FAT/CHOLESTEROL/SODIUM DIET: This diet may help reduce your chances of having a heart attack. LIFTING: Avoid lifting anything more than 10 pounds for 5-7 days Prior to straining, laughing, sneezing and/or coughing, apply manual pressure directly over insertion site. ACTIVITY: You may walk or climb stairs as tolerated You can resume sexual activity as tolerated In general, you are encouraged to engage in a minimum of 30 minutes or more of moderate intensity physical activity, such as brisk walking, daily or at least 3 -4 times weekly BATHING Do not submerge the site into water (bath tub, hot tub, swimming pool) for 1 week. This can be a source for infection into the blood stream. You may shower after 24 hours SITE CARE: After 24 hours, you may remove the dressing and leave the site open to air. Keep the site clean and dry. Clean gently and pat dry. You can expect bruising and tenderness that gradually resolve within a week or two. Return to work as instructed per your physician Resume driving as instructed per physician Keep all scheduled follow up appointments Resume medications as instructed IMPORTANT: If prescribed a Platelet Aggregation Inhibitor such as, Plavix, Brilinta or Effient: Duration of therapy is minimum one year These medications are often used in combination with Aspirin in prevention of future heart attacks Never discontinue unless consult with your Secretarial Stenographer STROKE (CVA) Risk factors for a stroke are: Age, cigarette smoking, diabetes, excessive alcohol consumption, family history, high blood pressure, overweight, physical inactivity, prior stroke, heart attack, diagnosis of carotid artery stenosis or other artery disease. Warning signs: Sudden numbness or weakness of the face, arm or leg; especially on one side of the body, sudden confusion, trouble speaking or understanding, sudden trouble seeing in one or both eyes, sudden trouble walking, dizziness, loss of balance or coordination, sudden severe headache with no cause. Call 911 or go to the Emergency Room. CONGESTIVE HEART FAILURE: If you have been diagnosed with Congestive Heart Failure (CHF) and your symptoms return, make an appointment with your physician Weigh yourself daily. Notify your physician if you have a weight gain of two or more pounds in one day or five or more pounds in one week. If you experience any difficulty breathing, please call 911 BLEEDING: Although the risk of bleeding is minimal, it can happen. If you have any bleeding from the site, apply firm pressure above the puncture site for 10-15 minutes. If the bleeding does not stop, continue manual pressure and call 911 Contact your physician if: You develop a fever greater than 101 degrees Fahrenheit Your site becomes reddened or has any drainage You have an increase in pain or burning at the site or if a large knot forms at the site. If you experience chest pain, shortness of breath, dizziness, or extreme tiredness, stop the activity and rest. Please notify your physicians office if you experience any of these symptoms and they are not relieved by rest please call 911! Referrals: Lex Biswas CNP [Non-Partnered Physician] - 03/17/16 4:40 pm ()
[2016-03-12] MEDS: Vancomycin 1,250 MG in D5% in Water 250 ML IVPB SCH (16:44)
[2016-03-12] MEDS ORDERED: Furosemide 20 MG TABLET PO SCH (17:00)
[2016-03-12] MEDS: Lactobacillus 1 EACH CAP.SPRINK PO SCH (20:40)
[2016-03-12] MEDS: Insulin DETEMIR 100 UNIT/ML X5UNITS SQ SCH (20:41)
[2016-03-13 06:00] LABS: Hematocrit 33.8 % (35.3-44.9); Hemoglobin 10.7 g/dL (11.5-15.4); Immature Platelets 7.8 % (1.1-6.1); Mean Corpuscular HGB Conc 31.7 g/dL (31.6-35.5); Mean Corpuscular Hemoglobin 29.7 pg (28.0-33.3); Mean Corpuscular Volume 93.9 fL (83.0-100.0); Mean Platelet Volume 11.5 fL (9.4-12.4); Red Blood Count 3.6 M/mcL (3.82-4.97)
[2016-03-13] MEDS: *HR* Heparin 5,000 UNIT/ML VIAL SQ SCH ×2 (06:13→17:01)
[2016-03-13] MEDS: Levothyroxine 25 MCG TABLET PO SCH (06:13)
[2016-03-13 06:17] LABS: Calcium 9.2 mg/dL (8.6-10.8); Potassium 3.8 mEq/L (3.5-4.5)
[2016-03-13] MEDS: Aspirin Enteric Coated 81 MG Tablet PO SCH (07:57)
[2016-03-13] MEDS: Lactobacillus 1 EACH CAP.SPRINK PO SCH ×2 (07:57→21:09)
[2016-03-13] MEDS: Metoprolol XL (24 HR) Succ 50 MG TAB.ER.24H PO SCH (07:57)
[2016-03-13] MEDS: Tiotropium 18 MCG inhalation IH SCH (07:58)
[2016-03-13] MEDS: Insulin LISPRO 300 UNITS/3 ML VIAL SQ SCH ×4 (08:01→21:10)
[2016-03-13] MEDS: Nicotine 14 MG PATCH.TD24 TD SCH (08:04)
[2016-03-13] MEDS ORDERED: Aminoglycoside Consult 1 EACH MC ONE (08:48)
--- NOTE | 2016-03-13 14:06 | Internal Med Progress Note ---
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 clinically improving on 4 l of NC. We will stop antibiotics today, the patient has completed the course. We will try to decrease FiO2, patient is typically using 3 l/min of oxygen at home, at this point her oxygen saturation level disease above 90%, she has been afebrile since admission. Possible discharge tomorrow in a.m. Patient needs placement to subacute nursing facility. career services assistant involved, will follow-up tomorrow with our director social service. - Time Spent With Patient 25 - 35 minutes - Subjective Interval history: 1st encounter with the patient. Patient needs a long-term user of supplemental oxygen therapy, she denies chest pain, fever, shortness of breath. - Constitutional Vitals: Temp Pulse Resp BP Pulse Ox 98.1 F 84 18 144/79 97 03/13/16 12:10 03/13/16 12:10 03/13/16 12:10 03/13/16 12:10 03/13/16 12:10 General appearance: Present: A&O X 2, A&O X 3 Exam: breathing with nasal cannula, not in distress. - Head Head exam: Present: atraumatic, normocephalic - Eye Eye exam: Present: PERRL, conjuntiva pink, sclera anicteric Pupils: Present: PERRL - Neck Neck exam general surgery: Present: supple, trachea midline. Absent: lymphadenopathy - Respiratory Respiratory exam: Present: decreased breath sounds. Absent: accessory muscle use, rales, rhonchi, wheezes - Cardiovascular Cardiovascular exam: Present: RRR, +S1, +S2. Absent: diastolic murmur, gallop, rubs, systolic murmur - GI/Abdominal GI/Abdominal exam: Present: normal bowel sounds, soft, no peritoneal signs. Absent: distended, tenderness - Extremities Exam Extremities exam: Present: warm, radial pulses palpable and symetrical. Absent : calf tenderness, cyanotic, pedal edema - Neurological Exam Neurological exam: Present: CN II-XII intact, oriented X3, no focal deficits. Absent: pronater drift, facial droop, speech deficit - Skin Skin exam: Present: dry, intact Internal Medicine: Result - Labs CBC & Chem 7: 03/13/16 05:35 03/13/16 05:35 Labs: Short CBC 03/13/16 Range/Units 05:35 WBC 16.2 H (4.3-11.1) K/mcL Hgb 10.7 L (11.5-15.4) g/dL Hct 33.8 L (35.3-44.9) % Plt Count 365 (140-400) K/mcL BMP 03/13/16 05:35 Sodium 140 Potassium 3.8 Chloride 101 Carbon Dioxide 31 H BUN 30 H Creatinine 1.07 Glucose 209 H Calcium 9.2 - ABG Interpretation ABG results: ABG ABG pH 7.36 pH Units (7.32-7.45) 03/04/16 09:20 ABG pCO2 42 mmHg (35-45) 03/04/16 09:20 ABG pO2 148 mmHg (85-104) H 03/04/16 09:20 ABG O2 Saturation 99 % (95-98) H 03/04/16 09:20 PT/INR, D-dimer PT 14.3 Seconds (9.4-12.1) H 03/10/16 14:06 Consult Discharge Plan - Plan Additional Instructions: RISK FACTORS: STOP SMOKING: If you smoke, STOP. Smoking or tobacco use significantly increases your risk of heart disease because nicotine causes the arteries to narrow or constrict. It also causes fats to stick to the artery. Your chances of having a heart attack are greatly increased if you continue to smoke. For more information, call the education line for smoking cessation 2-039-XQRFDZJ EAT A LOW FAT/CHOLESTEROL/SODIUM DIET: This diet may help reduce your chances of having a heart attack. LIFTING: Avoid lifting anything more than 10 pounds for 5-7 days Prior to straining, laughing, sneezing and/or coughing, apply manual pressure directly over insertion site. ACTIVITY: You may walk or climb stairs as tolerated You can resume sexual activity as tolerated In general, you are encouraged to engage in a minimum of 30 minutes or more of moderate intensity physical activity, such as brisk walking, daily or at least 3 -4 times weekly BATHING Do not submerge the site into water (bath tub, hot tub, swimming pool) for 1 week. This can be a source for infection into the blood stream. You may shower after 24 hours SITE CARE: After 24 hours, you may remove the dressing and leave the site open to air. Keep the site clean and dry. Clean gently and pat dry. You can expect bruising and tenderness that gradually resolve within a week or two. Return to work as instructed per your physician Resume driving as instructed per physician Keep all scheduled follow up appointments Resume medications as instructed IMPORTANT: If prescribed a Platelet Aggregation Inhibitor such as, Plavix, Brilinta or Effient: Duration of therapy is minimum one year These medications are often used in combination with Aspirin in prevention of future heart attacks Never discontinue unless consult with your Family Practitioner STROKE (CVA) Risk factors for a stroke are: Age, cigarette smoking, diabetes, excessive alcohol consumption, family history, high blood pressure, overweight, physical inactivity, prior stroke, heart attack, diagnosis of carotid artery stenosis or other artery disease. Warning signs: Sudden numbness or weakness of the face, arm or leg; especially on one side of the body, sudden confusion, trouble speaking or understanding, sudden trouble seeing in one or both eyes, sudden trouble walking, dizziness, loss of balance or coordination, sudden severe headache with no cause. Call 911 or go to the Emergency Room. CONGESTIVE HEART FAILURE: If you have been diagnosed with Congestive Heart Failure (CHF) and your symptoms return, make an appointment with your physician Weigh yourself daily. Notify your physician if you have a weight gain of two or more pounds in one day or five or more pounds in one week. If you experience any difficulty breathing, please call 911 BLEEDING: Although the risk of bleeding is minimal, it can happen. If you have any bleeding from the site, apply firm pressure above the puncture site for 10-15 minutes. If the bleeding does not stop, continue manual pressure and call 911 Contact your physician if: You develop a fever greater than 101 degrees Fahrenheit Your site becomes reddened or has any drainage You have an increase in pain or burning at the site or if a large knot forms at the site. If you experience chest pain, shortness of breath, dizziness, or extreme tiredness, stop the activity and rest. Please notify your physicians office if you experience any of these symptoms and they are not relieved by rest please call 911! Referrals: Lex Biswas, CONSTRUCTION ECONOMIST [Non-Partnered Physician] - 03/17/16 4:40 pm ()
[2016-03-13] MEDS ORDERED: Insulin DETEMIR 100 UNIT/ML X5UNITS SQ SCH (21:00)
[2016-03-14 04:04] LABS: Basophils % 0.1 %; Eosinophils # 0.1 K/mcL (0.0-0.6); Eosinophils % 0.7 %; Hematocrit 33.6 % (35.3-44.9); Hemoglobin 10.3 g/dL (11.5-15.4); Lymphocytes # 1.6 K/mcL (0.6-4.6); Lymphocytes % 13.6 %; Mean Corpuscular HGB Conc 30.7 g/dL (31.6-35.5); Mean Corpuscular Hemoglobin 28.9 pg (28.0-33.3); Mean Corpuscular Volume 94.1 fL (83.0-100.0); Mean Platelet Volume 11.2 fL (9.4-12.4); Monocytes # 0.6 K/mcL (0.0-1.3); Monocytes % 4.6 %; Neutrophils # 9.5 K/mcL (1.6-8.9); Platelet Count 341 K/mcL (140-400); Red Blood Count 3.57 M/mcL (3.82-4.97)
[2016-03-14 04:15] LABS: BUN/Creatinine Ratio 26 (6-26); Blood Urea Nitrogen 27 mg/dL (7-20); Calcium 9.3 mg/dL (8.6-10.8); Carbon Dioxide 30 mEq/L (19-29); Chloride 105 mEq/L (98-109); Glucose 75 mg/dL (70-99); Magnesium 1.1 mg/dL (1.6-2.6); Osmolality,Calculated 298 (280-300); Potassium 3.5 mEq/L (3.5-4.5); Sodium 142 mEq/L (136-145); eGFR For African Americans > 60 (> 60); eGFR For Non-African Americans 52 (> 60)
[2016-03-14] MEDS: Levothyroxine 25 MCG TABLET PO SCH (05:34)
[2016-03-14] MEDS: *HR* Heparin 5,000 UNIT/ML VIAL SQ SCH (05:35)
[2016-03-14] MEDS: Tiotropium 18 MCG inhalation IH SCH (08:11)
[2016-03-14] MEDS: Insulin LISPRO 300 UNITS/3 ML VIAL SQ SCH ×2 (08:35→12:24)
[2016-03-14] MEDS: Magnesium Sulfate 2 GM in D5% in Water 100 ML IVPB SCH ×2 (08:42→10:04)
[2016-03-14] MEDS: Nicotine 14 MG PATCH.TD24 TD SCH (08:45)
[2016-03-14] MEDS: Aspirin Enteric Coated 81 MG Tablet PO SCH (08:47)
[2016-03-14] MEDS: Lactobacillus 1 EACH CAP.SPRINK PO SCH (08:47)
[2016-03-14] MEDS: Metoprolol XL (24 HR) Succ 50 MG TAB.ER.24H PO SCH (08:47)
--- NOTE | 2016-03-14 09:14 | Invasive Diagnostic Lab ---
Name: Lisbet Ludwig Date of Study: 03/10/2016 Date: 1935 Ht: 163.0 cm /64.2 in Medical Record#: [id number] Age: 80 Wt: 80.4 kg / 177.25 lb Account/Order#: [id number] Gender: Female BSA: 1.86 Order #: [id number] Fluoro Dose: 713 mGy BMI: 30.26 Procedure Physician: Chas Vee MD, [facility] Referring MD: Referring MD: Procedures Performed: LEFT HEART CATH Stent w/ PTCA Single Major Vessel LAD Stent w/ PTCA Single Major Vessel RCA Indications: Non-Stemi Impressions: There is severe two vessel coronary artery disease. The left ventricle is normal and has normal contractility EF 50% Patient had successful PTCA/Drug-Eluting Stent placement in the distal RCA. Patient had successful PTCA/Drug-Eluting Stent placement in the proximal LAD. Recommendations: Plavix (Clopidogrel) 75 mg PO Daily. Optimal medical therapy of patient's disease. Aggressive risk factor modification. History/Risk Factors: pn sepsis Chronic Lung Disease Procedure Access obtained in the right Radial artery by percutaneous puncture Complications: None Contrast: Isovue 164ml Closure Device: Mechanical Compression Hemodynamics: Pressures Site Systolic/ A Wave Diastolic/ V Wave End Diastolic/ Mean HR AO 86 61 73 100 AO 83 59 70 88 LV 119 7 15 91 LV 121 7 16 89 AO 119 62 86 91 AO 105 88 97 95 AO 101 86 93 94 LV Ventriculography Ejection Method: LV Gram Ejection Fraction: 50% Wall Motion: GUILLEN Anterobasal Normal Anterolateral Normal Apical: Normal Inferoapical Normal Inferobasal Normal Coronary Dominance: right Lesion Findings/Interventions * Left Main Coronary Artery The LMCA is angiographically free of disease. * Left Anterior Descending There is an 8 mm long, 70% stenosis in the Proximal LAD. The lesion has no thrombus present. An intervention was performed on the Proximal LAD with a final stenosis of 0%. There were no lesion complications. The final LUCIANA flow was 3. There is a 50% mid LAD stenosis * Circumflex The Circumflex is angiographically free of disease. The 1st Marginal is angiographically free of disease. * Right Coronary Artery There is an 8 mm long, 95% stenosis in the Distal RCA. The lesion has no thrombus present. An intervention was performed on the Distal RCA with a final stenosis of 0%. There were no lesion complications. The final LUCIANA flow was 3. There is a mid 50% stenosis. Interventional Device(s) Vessel Segment Type Name Diameter (mm) Length (mm) Distal RCA balloon Emerge Monorail 2 8 Distal RCA bioabsorbable stent Synergy 2.25 12 Distal RCA balloon NC Emerge 2.25 8 Proximal LAD bioabsorbable stent Synergy 2.5 12 Proximal LAD balloon NC Emerge 3 8 Updated by Rita Smith RN on 03/10/2016 4:04:18 PM Chas Vee MD, FACC electronically signed on 03/14/2016 9:09:58 AM with status of Final
--- NOTE | 2016-03-14 09:34 | Discharge Summary ---
Date of Encounter: 03/14/16 Time of Encounter: 09:29 - Discharge Diagnosis (1) Acute and chronic respiratory failure with hypoxia Priority: Primary Status: Acute - Discharge Medications Home Medications: Albuterol Sulfate [Proair Hfa] 2 puff IH Q4H PRN 09/03/15 [History] Alendronate Sodium [Fosamax] 70 mg PO QWEEK 09/03/15 [History] Atorvastatin Calcium [Lipitor] 20 mg PO DAILY 09/03/15 [History] Furosemide [Lasix] 20 mg PO DAILY 09/03/15 [History] Insulin Glargine,Hum.rec.anlog [Lantus Solostar] 20 unit SQ HS 09/03/15 [History ] Levothyroxine [Synthroid] 25 mcg PO DAILY 09/03/15 [History] Losartan Potassium [Cozaar] 100 mg PO DAILY 09/03/15 [History] Metoprolol [Lopressor] 100 mg PO BID 09/03/15 [History] Potassium Chloride [Klor-Con] 10 meq PO DAILY 09/03/15 [History] PredniSONE [Deltasone] 5 mg PO DAILY 09/03/15 [History] Cholecalciferol (Vitamin D3) [Vitamin D3] 50,000 unit PO Q2W 03/01/16 [History] Allergies/Adverse Reactions: Allergies iodine Allergy (Verified 03/01/16 13:19) See Comments UNABLE TO CONFIRM REACTION- Date of admission: 03/01/16 06:24 Primary care physician: PCP NO Consults: 03/06/16 19:20 Consult to Physical Therapy [CONS] Routine Comment: Evaluate, develop and implement POC OT [Consult to Occupational Therapy] [CONS] Routine Comment: Evaluate, develop and implement POC 03/07/16 07:59 Consult to Cardiac Rehabilitation-Phase1 [CONS] Routine Comment: Reason for Consult: NSTEMI Call Completed: No 03/10/16 12:27 Consult to Invasive Line Access Team [CONS] Routine Reason for Consult: limited IV sites Line Type: EPIV 03/11/16 12:49 Consult to Respiratory Therapy [CONS] Routine Reason for Consult: chest percusiion Call Completed: No 03/12/16 12:59 Consult to Zipper Cutter [CONS] Routine Comment: 03/01/16 06:26 Consult to Physician [CONS] Routine Consulting Provider: Carlos Solano Reason for Consult: COPD resp failurem PNA Time Notified: 07:00 Call Completed: Yes 03/03/16 02:38 Consult to Apron Worker [CONS] Routine Reason for SW Consult: possible need for short term rehab 03/04/16 16:24 Consult to Cardiology [CONS] Routine Comment: Consulting Provider: Cardiology Radha Reason for Consult: please evaluate for new onset EKG changes with ST- wave changes on the septal and lateral leads concerning for myocardial ischemia. thank you. Call Completed: Yes Discharging clinician: Tristan Dolan Anticipated date of discharge: 03/14/16 - Patient Status Disposition: Transfer SNF Condition: Fair Functional capacity at discharge: uses cane/walker Overall status at discharge: patient is back to baseline - Discharge Instructions Instructions: Heart Failure (DC) Follow Up With: Chas Vee MD [Partnered Physician] - 03/18/16 1:15 pm Lex Biswas CNP [Non-Partnered Physician] - 03/17/16 4:40 pm () Additional Instructions: RISK FACTORS: STOP SMOKING: If you smoke, STOP. Smoking or tobacco use significantly increases your risk of heart disease because nicotine causes the arteries to narrow or constrict. It also causes fats to stick to the artery. Your chances of having a heart attack are greatly increased if you continue to smoke. For more information, call the education line for smoking cessation 6-790-BNENDUW EAT A LOW FAT/CHOLESTEROL/SODIUM DIET: This diet may help reduce your chances of having a heart attack. LIFTING: Avoid lifting anything more than 10 pounds for 5-7 days Prior to straining, laughing, sneezing and/or coughing, apply manual pressure directly over insertion site. ACTIVITY: You may walk or climb stairs as tolerated You can resume sexual activity as tolerated In general, you are encouraged to engage in a minimum of 30 minutes or more of moderate intensity physical activity, such as brisk walking, daily or at least 3 -4 times weekly BATHING Do not submerge the site into water (bath tub, hot tub, swimming pool) for 1 week. This can be a source for infection into the blood stream. You may shower after 24 hours SITE CARE: After 24 hours, you may remove the dressing and leave the site open to air. Keep the site clean and dry. Clean gently and pat dry. You can expect bruising and tenderness that gradually resolve within a week or two. Return to work as instructed per your physician Resume driving as instructed per physician Keep all scheduled follow up appointments Resume medications as instructed IMPORTANT: If prescribed a Platelet Aggregation Inhibitor such as, Plavix, Brilinta or Effient: Duration of therapy is minimum one year These medications are often used in combination with Aspirin in prevention of future heart attacks Never discontinue unless consult with your Catalyst Supervisor STROKE (CVA) Risk factors for a stroke are: Age, cigarette smoking, diabetes, excessive alcohol consumption, family history, high blood pressure, overweight, physical inactivity, prior stroke, heart attack, diagnosis of carotid artery stenosis or other artery disease. Warning signs: Sudden numbness or weakness of the face, arm or leg; especially on one side of the body, sudden confusion, trouble speaking or understanding, sudden trouble seeing in one or both eyes, sudden trouble walking, dizziness, loss of balance or coordination, sudden severe headache with no cause. Call 911 or go to the Emergency Room. CONGESTIVE HEART FAILURE: If you have been diagnosed with Congestive Heart Failure (CHF) and your symptoms return, make an appointment with your physician Weigh yourself daily. Notify your physician if you have a weight gain of two or more pounds in one day or five or more pounds in one week. If you experience any difficulty breathing, please call 911 BLEEDING: Although the risk of bleeding is minimal, it can happen. If you have any bleeding from the site, apply firm pressure above the puncture site for 10-15 minutes. If the bleeding does not stop, continue manual pressure and call 911 Contact your physician if: You develop a fever greater than 101 degrees Fahrenheit Your site becomes reddened or has any drainage You have an increase in pain or burning at the site or if a large knot forms at the site. If you experience chest pain, shortness of breath, dizziness, or extreme tiredness, stop the activity and rest. Please notify your physicians office if you experience any of these symptoms and they are not relieved by rest please call 911! - Diet and Activity Activity: as per physical therapy Diet: low salt diet Interval History: Ms. Ludwig is a 80 year old female with past medical history significant for COPD who wall was transferred from an outside hospital where she presented with severe shortness of breath. History is limited by respiratory distress, patient is currently on BiPAP and able to speak in short sentences saying yes and no answers. She has been having severe shortness of breath for the last 3 days has been progressive and associated with chest discomfort and cough. She presented to [place] where she was hypoxic and tachypneic with respiratory rate of 42. She was placed on BiPAP, treated with steroids and antibiotics and transferred to our hospital for further care. A 10 point review of systems was obtained, limited by respiratory distress, negative except as above. Family history was reviewed and found to be noncontributory to current presentation. Hospital course: Ms. Ludwig is a 80 year old female who was admitted due to acute on chronic respiratory failure with hypoxia, secondary to a exacerbation of her COPD, complicated with an acute PNA secondary mckeon virus, clinically improving. Patient completed inpatient course of IV antibiotics with both vancomycin and Maxipime. She has been afebrile, leukocytosis has decreased. However, leukocytosis was likely induced by use of the steroids. Her kidney function has remained stable throughout admission. She is a chronic user of oxygen therapy at home, her usual oxygen flow rate is 3 L/m. She is at her baseline. Physical therapy evaluation recommended placement to a subacute rehabilitation center. She has been approved for transfer to a subacute rehabilitation center for continuity of care. She was explained about the plan of care, she expresses understanding. She developed some hypomagnesemia, magnesium was supplemented. - Time Spent with Patient Total time spent providing and/or coordinating discharge services: Greater than 30 minutes - Constitutional Vitals: Temp Pulse Resp BP Pulse Ox 98.7 F 88 18 149/82 94 L 03/14/16 07:30 03/14/16 07:30 03/14/16 08:11 03/14/16 07:30 03/14/16 08:57 General appearance: Present: A&O X 2, A&O X 3 - Head Head exam: Present: atraumatic, normocephalic - Eye Eye exam: Present: PERRL, conjuntiva pink, sclera anicteric Pupils: Present: PERRL - Neck Neck exam general surgery: Present: supple, trachea midline. Absent: lymphadenopathy - Respiratory Respiratory exam: Present: decreased breath sounds. Absent: accessory muscle use, rales, rhonchi, wheezes - Cardiovascular Cardiovascular exam: Present: RRR, +S1, +S2. Absent: diastolic murmur, gallop, rubs, systolic murmur - GI/Abdominal GI/Abdominal exam: Present: normal bowel sounds, soft, no peritoneal signs. Absent: distended, tenderness - Extremities Exam Extremities exam: Present: warm, radial pulses palpable and symetrical. Absent : calf tenderness, cyanotic, pedal edema - Neurological Exam Neurological exam: Present: CN II-XII intact, oriented X3, no focal deficits. Absent: pronater drift, facial droop, speech deficit - Skin Skin exam: Present: dry, intact
--- NOTE | 2016-03-14 09:40 | Physician Discharge Referral ---
ExtendedCare Referral Info Transfer To: SNF Provider in Charge after Transfer: PCP Institutional Level of Care: Skilled - Diagnosis (1) Acute and chronic respiratory failure with hypoxia Priority: Primary Status: Acute Prognosis: Fair Aware of Diagnosis: Patient Aware of Prognosis: Patient - Transfer Medications Home Medications: Albuterol Sulfate [Proair Hfa] 2 puff IH Q4H PRN 09/03/15 [History] Alendronate Sodium [Fosamax] 70 mg PO QWEEK 09/03/15 [History] Atorvastatin Calcium [Lipitor] 20 mg PO DAILY 09/03/15 [History] Furosemide [Lasix] 20 mg PO DAILY 09/03/15 [History] Insulin Glargine,Hum.rec.anlog [Lantus Solostar] 20 unit SQ HS 09/03/15 [History ] Levothyroxine [Synthroid] 25 mcg PO DAILY 09/03/15 [History] Losartan Potassium [Cozaar] 100 mg PO DAILY 09/03/15 [History] Metoprolol [Lopressor] 100 mg PO BID 09/03/15 [History] Potassium Chloride [Klor-Con] 10 meq PO DAILY 09/03/15 [History] PredniSONE [Deltasone] 5 mg PO DAILY 09/03/15 [History] Cholecalciferol (Vitamin D3) [Vitamin D3] 50,000 unit PO Q2W 03/01/16 [History] Allergies/Adverse Reactions: Allergies iodine Allergy (Verified 03/01/16 13:19) See Comments UNABLE TO CONFIRM REACTION- - Respiratory Orders Oxygen / L per min (3) Smoking Cessation: Smoking cessation has been advised. For more information, call the [place] Tobacco Quit Line at 9-113-KNCO-NOW. - Ancillary Orders May use pressure relief devices daily prn, May go on RUFUS w/family/respon alliance party w /meds at nurse discretion PRN, May consult with Dentist, Interventional Cardiologist, Registered Private Duty Nurse PRN - Advance Directives Code Status: Full Code - Mobility Orders Ambulate - Rehabiliation Orders Rehab Potential: Fair Rehab Orders: ROM Exercises, Evaluation for Physical Therapy, Evaluation for Occupational Therapy - Treatments May check for fecal impaction rectally daily PRN - Diet Orders Cardiac CERTIFICATION: I certify that the transfer of the above named patient to an Extended Care Facility is necessary for the continuing treatment of the diagnosis listed. The above information is true and accurate reflection of patient's current condition. Confidential - Redisclosure prohibited without a patient's written consent.
[2016-03-14 11:33] VITALS: BP 137/84
== END 2016-03-14 16:00 | DRG 853 ==
LOC: 2ANU → SUATTDRO 03-01 06:24 → 2ANU 03-05 14:18
PROVIDERS: ADMIT Internal Medicine; ATTEND Internal Medicine